=== PATIENT | female | born 1985 | race American Indian/Alaskan Native ===

== ENCOUNTER 2018-12-13 07:51 | Day surgery (SDC) | payer MEDICARE ==
[2018-12-13] MEDS ORDERED: NACL 0.9% 500 ML 500 ML IV SCH (09:00)
--- NOTE | 2018-12-13 09:04 | Short Stay Summary ---
Short Stay Documentation Date of service: 12/13/18 Narrative H&P: PVD with gangrene of the RLE s/p revasc by outside special effects person x 2 with dehissence of TMA who presented for me for evaluation and treatment of PVD after multiple failed attempts. 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 - History Principal diagnosis: PVD with gangrene Past Medical History: diabetes, dialysis, ESRD Past Surgical History: Other (multiple right lower extremity revasc by outside individuals, AVF creation) Social history: single - Allergies and Medications Current Medications: Allergies shellfish derived Adverse Reaction (Unverified 12/13/18 07:52) Itching Active Medications Sodium Chloride (Nacl 0.9% 500 Ml) 500 mls @ 50 mls/hr IV DIRECT CHARLA - Physical exam General appearance: no acute distress Lungs: Normal air movement Gastrointestinal: normal Extremities: abnormal (warm, but open dehissence of right TMA ; nonpalpable pedal pulses) - Brief post op/procedure progress note Date of procedure: 12/13/18 Pre-op diagnosis: PVD with gangrene Post-op diagnosis: same Procedure: Right common iliac artery angioplasty Right common femoral artery and superficial femoral artery atherectomy and angioplasty Anesthesia: local (w/ conscious sedation) Surgeon: ELENI REBOLLEDO Estimated blood loss: minimal Condition: stable - Hospital course Hospital course: Manual pressure. Can leave 4 hrs after hold. - Disposition Condition at discharge: Stable Disposition: DC-01 TO HOME OR SELFCARE - Discharge Diagnoses (1) Atherosclerotic peripheral vascular disease with gangrene Status: Acute Short Stay Discharge Plan Activity: advance as tolerated Weight Bearing Status: Weight Bear as Tolerated Diet: diabetic Wound: keep clean and dry, other (remove pressure dressing on 12/14/18 in AM ; do not lift more than 10 lbs for 2 weeks ; do not have heparin with dialysis for 3 dialysis sessions) Follow up with: LUPE MARTINEZ MD [Primary Care Provider] - 7 Days Prescriptions: Pentoxifylline [TRENtal] 400 mg PO DAILY #30 tablet
[2018-12-13 09:45] LABS: Basophils # (Auto) 0.1 K/mm3 (0.0-0.1); Basophils % (Auto) 1.1 % (0.0-1.8); Eosinophils # (Auto) 0.2 K/mm3 (0.0-0.4); Eosinophils % (Auto) 3.1 % (0.0-4.3); Hematocrit 45.5 % (30.3-42.9); Hemoglobin 14.4 gm/dl (10.1-14.3); Lymphocytes # (Auto) 1.4 K/mm3 (1.2-5.4); Lymphocytes % (Auto) 24.5 % (13.4-35.0); Mean Corpuscular HGB Conc 32 % (30-34); Mean Corpuscular Volume 91 fl (79-97); Monocytes # (Auto) 0.6 K/mm3 (0.0-0.8); Monocytes % (Auto) 10.5 % (0.0-7.3); Platelet Count 248 K/mm3 (140-440); Red Blood Count 4.97 M/mm3 (3.65-5.03); Red Cell Distribution Width 17.8 % (13.2-15.2)
[2018-12-13 09:55] LABS: INR 1.03 (0.87-1.13)
[2018-12-13 10:11] LABS: Calcium 8.7 mg/dL (8.4-10.2)
[2018-12-13] MEDS ORDERED: BENADRYL ONE (11:57)
[2018-12-13] MEDS ORDERED: XYLOCAINE 2% INFILTRATI ONE (11:57)
[2018-12-13] MEDS ORDERED: SOLU-Medrol ONE (11:57)
[2018-12-13] MEDS ORDERED: NACL 0.9% 500 ML 500 ML ONE (11:57)
[2018-12-13] MEDS ORDERED: HEPARIN/NS 5000 UNIT/500ML(CATH LAB) 1,000 ML IR ONE (11:57)
[2018-12-13] MEDS ORDERED: PEPCID IV ONE (12:04)
[2018-12-13] MEDS ORDERED: HumaLOG SUB-Q ONE ×2 (12:10→13:00)
--- NOTE | 2018-12-13 12:15 | Event Note ---
Date: 12/13/18 BG 428. Patient usually takes 14 of lovolog for BG this elevated. Novolog provided. Will recheck in 1 hr
[2018-12-13] MEDS ORDERED: ANCEF/STERILE WATER 2 GM/20 ML 2 GM/20 ML SYRINGE IV ONE (12:30)
[2018-12-13] MEDS: VERSED ONE ×4 (12:33→13:49)
[2018-12-13] MEDS: SUBLIMAZE ONE ×3 (12:33→13:24)
[2018-12-13] MEDS: HEPARIN 10,000 UNITS/10 ML ONE ×2 (12:44→13:21)
[2018-12-13] MEDS ORDERED: SUBLIMAZE ONE (13:06)
--- NOTE | 2018-12-13 14:45 | Operative Report ---
Operative Report Operative Report: EXAM: 1. Ultrasound-guided access of the left common femoral artery 2. Angiography of the left lower extremity (clinical change, worsening gangrene) 3. Selection of the abdominal aorta with angiography (clinical change, worsening gangrene) disease 4. Selection of the right common iliac artery, external iliac artery, common femoral artery, superficial femoral artery, and popliteal artery with angiography of the right lower extremity (clinical change, worsening gangrene) 5. Fluoroscopic guided placement of a 6 mm spider embolic protection device in the right popliteal artery. 6. Atherectomy of the right proximal to mid official femoral artery with a Hawkone LX device with angioplasty with a 6 mm x 150 mm iNPACT DCB 7. Atherectomy of the right mid and distal common femoral artery with a Hawkone LX device with angioplasty with a 6 mm x 80 mm iNPACT DCB 8. Angioplasty of the right distal common iliac artery with a 6 mm x 80 mm angioplasty balloon 9. Angioplasty of the right distal superficial femoral artery with a 6 mm x 80 mm angioplasty balloon 10. Closure of left common femoral artery with manual compression DATE: 12/13/18 POWER GENERATION TECHNICIAN: ELENI REBOLLEDO MD INDICATION: Peripheral vascular disease with gangrene of the right forefoot MEDICATIONS: Please see nursing report for full details. DEVICES: 6 mm x 80 mm iNPACT DCB 6 mm x 150 mm iNPACT DCB 6 mm x 80 mm angioplasty balloon 6 mm spider EPD Hawkone LX device CONTRAST: Please see mushroom laborer report for full details. PROCEDURE: The risks, benefits, and alternatives were discussed with the patient including discussions about drug coated balloon technology and the mortality signal; written informed consent was obtained. The patient's groins were prepped and draped in a sterile fashion. Ultrasound was used to evaluate the left common femoral artery which demonstrated anterior and posterior plaque within the left common femoral artery with more plaque within the proximal left superficial femoral artery. Due to the plaque, I decided against using a closure device. Under direct ultrasound guidance, the left common femoral artery was accessed with a 21-gauge micropuncture needle. 0.018 inch wire was passed into the aorta. Needle was exchanged for transitional dilator. Wire was exchanged for 0.035 inch wire. Transitional dilator was exchanged for a 5 [place] sheath. Digital subtraction angiography was performed demonstrating 60% narrowing of the proximal left superficial femoral artery with 20% narrowing of the left common femoral artery. Left external iliac artery was patent. Flushed catheterization advanced over the wire and used to select the abdominal aorta. Digital subtraction angiography was performed a maturing patency of the infrarenal abdominal aorta, left common iliac artery, and left external iliac artery except for an area of 20% narrowing in the left proximal external iliac artery and distal left common iliac artery. The right proximal and mid common femoral artery were patent. The right distal common femoral artery had a 30% narrowing associated with it. The right external iliac artery was patent. The right common iliac artery and external iliac artery were selected and digital subtraction angiography was performed. There was a focal 30% narrowing in the mid to distal portion of the right common femoral artery. The right profundofemoral artery was patent. The right proximal superficial femoral artery had 30-40% narrowing with a subsequent 75% narrowing within the proximal vessel. The right mid superficial femoral artery was patent. The right distal superficial femoral artery was patent, But there is a small nonflow limiting dissection. Right popliteal artery was patent but there is a small nonflow limiting dissection in the mid popliteal artery. The tibial peroneal trunk, anterior tibial artery, posterior tibial artery, and peroneal artery was patent to the ankle. Unfortunately, the pedal flow was diminutive with severe diffuse narrowing of the dorsalis pedis and plantar arteries. The patient was heparinized. Sheath was exchanged for a 6 [place] Erin destination, but when a Hawkone M was unavailable, it was switched for a 7 Fr Erin destination positioned in the right common femoral artery. Atherectomy with the Hawkone device was performed in the right superficial femoral artery which was then treated with a 6 mm x 150 mm drug coated balloon. Atherectomy with the Hawkone device was performed in the right mid to distal common femoral artery which was then treated with a 6 mm x 80 mm drug coated balloon. Digital subtraction angiography demonstrated no residual narrowing. Sheath was retracted and a 6 mm x 80 mm angioplasty balloon was used to perform angioplasty of the right distal common femoral artery. Digital subtraction angiography was then performed demonstrated no residual narrowing. Digital subtraction angiography was performed demonstrating patency of the right common iliac artery, external iliac artery, common femoral artery, mid and proximal superficial femoral artery, but the previously visualized dissection ap peared to be more prominent in the distal right superficial femoral artery. 6 mm x 80 mm angioplasty balloon was then used to realign the dissection. Digital subtraction angiography was then performed demonstrating no significant residual dissection. Digital subtraction angiography was repeated demonstrating patency of the popliteal artery except for the previously visualized nonflow limiting mid popliteal artery dissection. Embolic protection device was retrieved. Digital subtraction angiography was performed again demonstrating no embolization of the runoff. Sheath was then retracted to the left external iliac artery and all wires, catheters, and sheaths were removed. Pressure was held until hemostasis was achieved. Sterile dressing and pressure dressing applied. Patient tolerated the procedure well. No immediate postprocedural complication. FINDINGS: Please see procedure note above. IMPRESSION: 1. Successful angioplasty of the right common iliac artery. 2. Successful atherectomy and angioplasty of the right common femoral artery and superficial femoral artery.
[2018-12-13] MEDS ORDERED: ZOFRAN ONE ×2 (15:00→17:24)
[2018-12-13] MEDS ORDERED: ZOFRAN IV ONE (15:00)
[2018-12-13 18:01] VITALS: BP 90/56
== END 2018-12-13 18:30 | disposition home or self-care (01) ==
LOC: CATHLABREC 07:51
PROVIDERS: ATTEND Radiology Diagnostic Radiology
DX: I70.261 Atherosclerosis of native arteries of extremities with gangrene, right leg (principal); I12.0 Hypertensive chronic kidney disease with stage 5 chronic kidney disease or end stage renal disease; E11.22 Type 2 diabetes mellitus with diabetic chronic kidney disease; N18.6 End stage renal disease; E11.319 Type 2 diabetes mellitus with unspecified diabetic retinopathy without macular edema; Z91.013 Allergy to seafood; Z79.899 Other long term (current) drug therapy; Z79.4 Long term (current) use of insulin; Z87.891 Personal history of nicotine dependence; Z99.2 Dependence on renal dialysis; Z72.89 Other problems related to lifestyle; Z80.0 Family history of malignant neoplasm of digestive organs; Z80.3 Family history of malignant neoplasm of breast; Z82.49 Family history of ischemic heart disease and other diseases of the circulatory system
CPT/HCPCS: 36415; 37220; 37225; 75625; 75716; 76937; 80048; 82962; 85025; 85347; 85610; 85730; 96374; 99156; 99157; C1714; C1725; C1769; C1884; C1887; C2623; J0690; J1200; J1644; J2250; J2405; J2930; J3010; J7040; J1815; Q9967

== ENCOUNTER 2019-01-17 07:03 | Day surgery (SDC) | payer MEDICARE ==
[2019-01-17] MEDS ORDERED: BENADRYL IV ONE (09:01)
[2019-01-17] MEDS ORDERED: VERSED ONE (09:24)
[2019-01-17] MEDS ORDERED: XYLOCAINE 1%/ EPI 1:100,000 INFILTRATI ONE (09:25)
[2019-01-17] MEDS ORDERED: HEPARIN/NS 5000 UNIT/500ML(CATH LAB) 1,000 ML IR ONE (09:25)
[2019-01-17] MEDS ORDERED: NACL 0.9% 250ML 250 ML ONE (09:25)
[2019-01-17] MEDS ORDERED: HEPARIN 10,000 UNITS/10 ML ONE (09:26)
--- NOTE | 2019-01-17 09:43 | Short Stay Summary ---
Short Stay Documentation Date of service: 01/17/19 Narrative H&P: 33 year old female with ESRD and LUE AVF malfunction who presents for treatment. - History Principal diagnosis: AVF malfunction H&P: obtained from office - Allergies and Medications Current Medications: Allergies shellfish derived Allergy (Verified 12/13/18 17:19) Itching Home Medications Medication Instructions Recorded Confirmed Last Taken Type Calcium Acetate 667 mg PO TIDAC 12/13/18 01/17/19 01/16/19 History Clopidogrel Bisulfate [Clopidogrel] 75 mg PO DAILY 12/13/18 01/17/19 01/16/19 History Ferric Citrate (Nf) [Auryxia (Nf)] 210 mg PO TIDAC 12/13/18 01/17/19 01/16/19 History Gabapentin [Neurontin] 100 mg PO PRN PRN 12/13/18 01/17/19 01/15/19 History Insulin Aspart [NovoLOG Flexpen] 4 - 16 units SUB-Q TIDAC 12/13/18 01/17/19 01/16/19 History Insulin Detemir [Levemir Flextouch] 30 ml SUB-Q PRN 12/13/18 01/16/19 History 15 units SQ Pentoxifylline [TRENtal] 400 mg PO DAILY #30 tablet 12/13/18 01/17/19 01/16/19 Rx Aspirin [Adult Aspirin] 81 mg PO DAILY 01/17/19 01/17/19 01/16/19 History Active Medications Diphenhydramine HCl (Benadryl) 25 mg IV ONCE ONE Stop: 01/17/19 09:02 - Physical exam General appearance: no acute distress Lungs: Normal air movement Gastrointestinal: normal Extremities: normal temperature, normal color - Brief post op/procedure progress note Date of procedure: 01/17/19 Pre-op diagnosis: ESRD with AVF malfunction Post-op diagnosis: same Procedure: peripheral AVF angioplasty Anesthesia: local (w/ conscious sedation) Surgeon: ELENI REBOLLEDO Estimated blood loss: minimal Condition: stable - Hospital course Hospital course: Tolerated procedure well. No issues. - Disposition Condition at discharge: Stable Disposition: DC-01 TO HOME OR SELFCARE - Discharge Diagnoses (1) Malfunction of arteriovenous dialysis fistula Status: Acute Short Stay Discharge Plan Activity: advance as tolerated Weight Bearing Status: Weight Bear as Tolerated Diet: renal Wound: keep clean and dry Follow up with: LUPE MARTINEZ MD [Primary Care Provider] - 7 Days
--- NOTE | 2019-01-17 09:44 | Operative Report ---
Operative Report Operative Report: EXAM: Ultrasound guided access of the left arm cephalic vein Placement of a sheath towards the venous outflow Fistulogram Angioplasty of the peripheral cephalic vein with a 8 mm x 2 cm cutting angioplasty balloon Angioplasty of the mid cephalic vein with an 8 mm x 60 mm angioplasty balloon DATE: 01/17/19 CIRCUIT DESIGN ENGINEER: ELENI REBOLLEDO MD INDICATION: AVF with malfunction MEDICATIONS: Please see nursing report for full details. PROCEDURE: The risks, benefits, and alternatives of the procedure were discussed and written informed consent was obtained. The patient was transported in stable condition to the angiography suite. The patient's left arm AV fistula was assessed by ultrasound and was patent. The patient was prepped and draped in a sterile fashion. Under ultrasound guidance, the left arm AV fistula cephalic vein was accessed with a 21-gauge micropuncture needle. The area was anesthetized prior to access. 0.018 inch wire was advanced through the micropuncture needle into the fistula and then the needle was exchanged for a 5 Turkish transitional dilator. The inner dilator and wire were removed and a 0.035 inch wire was advanced through the venous outflow. The transitional dilator was exchanged for a 6 Turkish short sheath. Fistulogram was performed of the venous outflow and central veins. Digital subtraction angiography demonstrated a 99% focal lesion in the peripheral portion of the cephalic vein. There is a 50% narrowing of a mid cephalic vein. The distal cephalic vein, and central veins were patent. There is a 40% perianastomotic stenosis. Sheath was upsized to a 7 Turkish sheath and an 8 mm x 2 cm cutting balloon was used to perform cutting balloon angioplasty in the peripheral portion of the cephalic vein. 8 mm x 6 cm angioplasty balloon was adhesed perform angioplasty of the mid cephalic vein. Digital subtraction angiography demonstrated no residual narrowing. At this point, all wires, catheters, and sheaths were removed. The site was closed with a 3-0 Vicryl suture. Hemostasis was achieved with slight manual compression. The patient was transported from the angiography suite to the floor in stable condition. IMPRESSION: Successful fistulogram and venoplasty as descibed above.
[2019-01-17] MEDS: SUBLIMAZE ONE ×2 (09:56→10:10)
[2019-01-17 12:02] VITALS: BP 92/52
== END 2019-01-17 12:30 | disposition home or self-care (01) ==
LOC: CATHLABREC 07:03
PROVIDERS: ATTEND Radiology Diagnostic Radiology
DX: T82.590A Other mechanical complication of surgically created arteriovenous fistula, initial encounter (principal); I12.0 Hypertensive chronic kidney disease with stage 5 chronic kidney disease or end stage renal disease; N18.6 End stage renal disease; E11.22 Type 2 diabetes mellitus with diabetic chronic kidney disease; E11.319 Type 2 diabetes mellitus with unspecified diabetic retinopathy without macular edema; Z72.89 Other problems related to lifestyle; Z98.890 Other specified postprocedural states; Z83.3 Family history of diabetes mellitus; Z80.3 Family history of malignant neoplasm of breast; Z80.0 Family history of malignant neoplasm of digestive organs; Z91.013 Allergy to seafood; Z79.82 Long term (current) use of aspirin; Z79.4 Long term (current) use of insulin; Z87.891 Personal history of nicotine dependence; Z82.49 Family history of ischemic heart disease and other diseases of the circulatory system; Y83.8 Other surgical procedures as the cause of abnormal reaction of the patient, or of later complication, without mention of misadventure at the time of the procedure; Y92.89 Other specified places as the place of occurrence of the external cause
CPT/HCPCS: 36415; 36902; 76937; 82947; 84132; 96374; 99156; 99157; C1725; C1769; C1894; J1200; J1644; J2250; J3010; J7050; Q9967

== ENCOUNTER 2019-02-28 06:34 | Day surgery (SDC) | payer MEDICARE ==
[2019-02-28] MEDS ORDERED: XYLOCAINE 2% INFILTRATI ONE (08:24)
[2019-02-28] MEDS ORDERED: HEPARIN/NS 5000 UNIT/500ML(CATH LAB) 1,000 ML IR ONE (08:24)
[2019-02-28] MEDS ORDERED: ANCEF/STERILE WATER 2 GM/20 ML 2 GM/20 ML SYRINGE IV ONE (08:24)
[2019-02-28] MEDS ORDERED: NACL 0.9% 500 ML 500 ML ONE (08:25)
[2019-02-28] MEDS ORDERED: HEPARIN 10,000 UNITS/10 ML ONE (09:01)
--- NOTE | 2019-02-28 09:27 | Short Stay Summary ---
Short Stay Documentation Date of service: 02/28/19 Narrative H&P: 33 year old female with ESRD and LUE AVF malfunction who presents for intervention. - History Principal diagnosis: AVF malfunction H&P: obtained from office - Allergies and Medications Current Medications: Allergies shellfish derived Allergy (Verified 12/13/18 17:19) Itching Home Medications Medication Instructions Recorded Confirmed Last Taken Type Calcium Acetate 667 mg PO TIDAC 12/13/18 02/28/19 02/27/19 History Clopidogrel Bisulfate [Clopidogrel] 75 mg PO DAILY 12/13/18 02/28/19 02/27/19 History Ferric Citrate (Nf) [Auryxia] 210 mg PO TIDAC 12/13/18 02/28/19 02/27/19 History Gabapentin [Neurontin] 100 mg PO PRN PRN 12/13/18 02/28/19 02/27/19 History Insulin Aspart [NovoLOG Flexpen] 4 - 16 units SUB-Q TIDAC 12/13/18 02/28/19 02/27/19 History Insulin Detemir [Levemir Flextouch] 30 ml SUB-Q DAILY PRN 12/13/18 02/28/19 02/27/19 History Pentoxifylline [TRENtal] 400 mg PO DAILY #30 tablet 12/13/18 02/28/19 02/27/19 Rx Aspirin [Adult Aspirin] 81 mg PO DAILY 01/17/19 02/28/19 02/27/19 History - Physical exam General appearance: no acute distress Lungs: Normal air movement Gastrointestinal: normal Extremities: normal temperature, normal color, abnormal (AVF with weak thrill) - Brief post op/procedure progress note Date of procedure: 02/28/19 Pre-op diagnosis: ESRD with AVF malfunction Post-op diagnosis: same Procedure: peripheral dialysis access angioplasty Anesthesia: local Findings: Strong thrill after procedure Surgeon: ELENI REBOLLEDO Estimated blood loss: minimal Condition: stable - Hospital course Hospital course: Ready for discharge - Disposition Condition at discharge: Stable Disposition: DC-01 TO HOME OR SELFCARE - Discharge Diagnoses (1) Atherosclerotic peripheral vascular disease with gangrene Status: Acute (2) Malfunction of arteriovenous dialysis fistula Status: Acute (3) Blindness Status: Acute (4) Diabetic neuropathy Status: Acute (5) End stage renal disease on dialysis Status: Acute Short Stay Discharge Plan Activity: advance as tolerated Weight Bearing Status: Weight Bear as Tolerated Diet: renal Wound: keep clean and dry Follow up with: LUPE MARTINEZ MD [Primary Care Provider] - 7 Days Forms: AVG Arteriogram D/CInstruction
--- NOTE | 2019-02-28 09:28 | Operative Report ---
Operative Report Operative Report: EXAM: Ultrasound guided access of the left arm AV cephalic fistula towards the anastomosis Placement of a sheath towards the anastomosis Selection of the brachial artery in a retrograde fashion with angiography and fistulogram Angioplasty of the peripheral dialysis access with a 6 mm x 20 mm cutting angioplasty balloon Angioplasty of the peripheral dialysis access with 8 mm x 60 mm angioplasty balloon DATE: 02/28/19 HOSTEL MANAGER: ELENI REBOLLEDO MD INDICATION: AV fistula malfunction requiring repeat intervention. MEDICATIONS: Please see nursing report for full details. DEVICES: 6 mm cutting angioplasty balloon 8 mm angioplasty balloon PROCEDURE: The risks, benefits, and alternatives of the procedure were discussed and written informed consent was obtained. The patient was transported in stable condition to the angiography suite. The patient's left arm AV fistula was assessed by ultrasound and was patent. The patient was prepped and draped in a sterile fashion. Under ultrasound guidance, the left arm AV fistula cephalic vein was accessed with a 21-gauge micropuncture needle. The area was anesthetized prior to access. 0.018 inch wire was advanced through the micropuncture needle into the fistula and then the needle was exchanged for a 5 [place] African transitional dilator. The inner dilator and wire were removed and a 0.035 inch glide wire was advanced through the anastomosis and into the brachial artery. The transitional dilator was exchanged for a 7 [place] African short sheath. Catheter was advanced over the wire and used to selective brachial artery in a retrograde fashion. Digital subtraction angiography was performed. Fistulogram was performed of the venous outflow and central veins. Subtraction angiography demonstrated a severe 50-60% perianastomotic narrowing and a 20% residual narrowing in the peripheral portion of the AV fistula. The midportion of the cephalic vein and the cephalic arch were patent. The central veins were patent. Some collateral veins were visualized but these were beyond the segments used for dialysis. The brachial artery was patent proximal and dis echo to the anastomosis with the proximal portion of the ulnar, radial, and interosseous artery visualized without issue. The brachial artery was patent. 6 mm x 20 mm cutting angioplasty balloon was used to perform angioplasty of the perianastamotic portion of the cephalic vein fistula. 8 mm x 60 mm angioplasty balloon was used to perform angioplasty of the peripheral portion of the cephalic vein fistula. Digital subtraction angiography was performed demonstrating less than 10% residual narrowing. The wire was removed and the site was closed with a 3-0 Vicryl suture. The sheath was then removed. Hemostasis was achieved with slight manual compression. The patient was transported from the angiography suite to the floor in stable condition. IMPRESSION: Successful peripheral dialysis access angioplasty with selection of the brachial artery, fistulogram, and angiogram.
[2019-02-28 11:07] VITALS: BP 113/70
--- NOTE | 2019-02-28 11:52 | XRay Report ---
ROUTINE CHEST, TWO VIEWS: HISTORY: History of opacity. The trachea, heart, mediastinal contour, lung ang and bony thorax are unremarkable. IMPRESSION: Unremarkable chest x-ray.
== END 2019-02-28 12:00 | disposition home or self-care (01) ==
LOC: CATHLABREC 06:34
PROVIDERS: ATTEND Radiology Diagnostic Radiology
DX: T82.898A Other specified complication of vascular prosthetic devices, implants and grafts, initial encounter (principal); I12.0 Hypertensive chronic kidney disease with stage 5 chronic kidney disease or end stage renal disease; N18.6 End stage renal disease; E11.40 Type 2 diabetes mellitus with diabetic neuropathy, unspecified; E11.22 Type 2 diabetes mellitus with diabetic chronic kidney disease; E11.51 Type 2 diabetes mellitus with diabetic peripheral angiopathy without gangrene; E11.319 Type 2 diabetes mellitus with unspecified diabetic retinopathy without macular edema; Z72.89 Other problems related to lifestyle; Z87.891 Personal history of nicotine dependence; Z79.82 Long term (current) use of aspirin; Z91.013 Allergy to seafood; Z79.899 Other long term (current) drug therapy; Z79.4 Long term (current) use of insulin; Z98.890 Other specified postprocedural states; Z83.3 Family history of diabetes mellitus; Z80.3 Family history of malignant neoplasm of breast; Z80.0 Family history of malignant neoplasm of digestive organs; Z82.49 Family history of ischemic heart disease and other diseases of the circulatory system; Y83.8 Other surgical procedures as the cause of abnormal reaction of the patient, or of later complication, without mention of misadventure at the time of the procedure; Y92.89 Other specified places as the place of occurrence of the external cause
CPT/HCPCS: 36415; 36902; 71046; 84132; C1725; C1769; C1894; J0690; J1644; J7040; Q9967

== ENCOUNTER 2019-05-31 08:16 | Day surgery (SDC) | payer MEDICARE ==
[~2019-05-31 08:16] MED LIST: SODIUM CHLORIDE 0.9% 1000 ML 1,000 ML IV SCH; ceFAZolin/Water 2 GM/20 ML 2 GM/20 ML SYRINGE IV NR
[2019-05-31] MEDS ORDERED: INSULIN REGULAR, HUMAN 100 UNITS/1 ML IV SCH (10:43)
[2019-05-31] MEDS ORDERED: INSULIN REGULAR, HUMAN 100 UNITS/1 ML ONE (10:49)
[2019-05-31] MEDS ORDERED: GELATIN SPONGE SIZE 100 TP ONE (10:49)
[2019-05-31] MEDS ORDERED: HEPARIN 10,000 UNITS/10 ML VIAL ONE (10:49)
[2019-05-31] MEDS ORDERED: THROMBIN (RECOMBINANT) 5,000 UNIT VIAL TP ONE (10:49)
[2019-05-31] MEDS ORDERED: SODIUM CHLORIDE 0.9% 250ML 250 ML ONE (10:49)
[2019-05-31] MEDS ORDERED: INSULIN REGULAR, HUMAN 100 UNITS/1 ML IV NR (11:00)
[2019-05-31] MEDS ORDERED: LIDOCAINE MPF (2%) 20 MG/1 ML VIAL 5 ML ONE (11:05)
[2019-05-31] MEDS ORDERED: MIDAZOLAM 2 MG/2 ML INJ ONE (11:05)
[2019-05-31] MEDS ORDERED: fentaNYL 100 MCG/2 ML INJ ONE (11:05)
[2019-05-31] MEDS ORDERED: PROPOFOL 200 MG/20 ML VIAL IV ONE (11:06)
[2019-05-31] MEDS ORDERED: PROTAMINE SULFATE 50 MG/5 ML INJ ONE (11:10)
[2019-05-31 11:20] LABS: Calcium 8.7 mg/dL (8.4-10.2)
--- NOTE | 2019-05-31 11:46 | Anesthesia Consultation ---
Anesthesia Consult and Med Hx Date of service: 05/31/19 - Airway Anesthetic Teeth Evaluation: Poor ROM Head & Neck: Adequate Mental/Hyoid Distance: Inadequate Mallampati Class: Class III Intubation Access Assessment: Possibly Difficult - Pulmonary Exam CTA: Yes - Cardiac Exam Cardiac Exam: RRR - Pre-Operative Health Status ASA Pre-Surgery Classification: ASA3 Proposed Anesthetic Plan: General - Pulmonary Hx Smoking: Yes (quit 2012) Hx Respiratory Symptoms: No - Cardiovascular System Hx Hypertension: Yes Hx Heart Attack/AMI: No Hx Peripheral Vascular Disease: Yes - Central Nervous System CVA: No - Endocrine Hx End Stage Renal Disease: Yes (last HD 05/29/19) Hx Liver Disease: No Hx Insulin Dependent Diabetes: Yes Hx Thyroid Disease: No - Hematic Hx Anemia: Yes - Other Systems Hx Cancer: No Hx Obesity: Yes (BMI 35) - Additional Comments Anesthesia Medical History Comments: POCT potassium 5.5 and recheck on BMP sent to lab 6.1. Discussed with surgeon. Patient has working HD access currently. Patient will go to scheduled outpatient HD today and surgery will be rescheduled for a later date. Patient verbalized understanding.
[2019-05-31 12:30] VITALS: BP 109/71
== END 2019-05-31 08:17 | disposition home or self-care (01) ==
LOC: OR 08:16
PROVIDERS: ATTEND Surgery Vascular Surgery
DX: T82.590A Other mechanical complication of surgically created arteriovenous fistula, initial encounter (principal); I12.0 Hypertensive chronic kidney disease with stage 5 chronic kidney disease or end stage renal disease; E11.22 Type 2 diabetes mellitus with diabetic chronic kidney disease; N18.6 End stage renal disease; E11.39 Type 2 diabetes mellitus with other diabetic ophthalmic complication; E11.40 Type 2 diabetes mellitus with diabetic neuropathy, unspecified; E11.51 Type 2 diabetes mellitus with diabetic peripheral angiopathy without gangrene; Z53.8 Procedure and treatment not carried out for other reasons; Z79.899 Other long term (current) drug therapy; Z99.2 Dependence on renal dialysis; Z91.013 Allergy to seafood; Z79.4 Long term (current) use of insulin; Z98.2 Presence of cerebrospinal fluid drainage device; Z98.890 Other specified postprocedural states; Z87.891 Personal history of nicotine dependence; Z72.89 Other problems related to lifestyle; Z80.3 Family history of malignant neoplasm of breast; Z80.0 Family history of malignant neoplasm of digestive organs; Z83.3 Family history of diabetes mellitus; Z82.49 Family history of ischemic heart disease and other diseases of the circulatory system; Z86.2 Personal history of diseases of the blood and blood-forming organs and certain disorders involving the immune mechanism
CPT/HCPCS: 36415; 80048; 82803; 82962; 84703; A4649; J0690; J1644; J1815; J2250; J2704; J2720; J3010; J7030; J7050

== ENCOUNTER 2021-11-16 07:01 | Day surgery (SDC) | payer MEDICARE ==
[2021-11-16] MEDS ORDERED: SODIUM CHLORIDE 0.9% 500 ML 500 ML IV SCH (08:00)
[2021-11-16] MEDS ORDERED: FAMOTIDINE 20 MG/2 ML INJ IV ONE (08:03)
[2021-11-16] MEDS ORDERED: methylPREDNISolone Sod Succinate 125 MG/2 ML INJ IV ONE (08:04)
[2021-11-16 08:09] LABS: Hematocrit 48.3 % (30.3-42.9); Hemoglobin 15.7 gm/dl (10.1-14.3); Mean Corpuscular HGB Conc 33 % (30-34); Mean Corpuscular Volume 88 fl (79-97); Platelet Count 222 K/mm3 (140-440); Red Blood Count 5.46 M/mm3 (3.65-5.03)
[2021-11-16 08:16] LABS: INR 0.88 (0.87-1.13)
[2021-11-16 08:17] LABS: Partial Thromboplastin Time 33.3 Sec. (24.2-36.6)
[2021-11-16] MEDS ORDERED: diphenhydrAMINE 50 MG/ML VIAL IV NR (08:30)
[2021-11-16] MEDS ORDERED: ceFAZolin/Water 2 GM/20 ML 2 GM/20 ML SYRINGE IV ONE (08:39)
[2021-11-16] MEDS ORDERED: HEPARIN 10,000 UNITS/10 ML VIAL ONE (08:39)
[2021-11-16] MEDS ORDERED: HEPARIN/NS 5000 UNIT/500ML 500 ML IR ONE ×2 (08:39→10:22)
[2021-11-16 08:40] LABS: Calcium 9.6 mg/dL (8.4-10.2)
[2021-11-16] MEDS ORDERED: NITROGLYCERIN SYRINGE 6 ML ONE (08:41)
[2021-11-16 08:46] LABS: Total Cells Counted 100
[2021-11-16 08:47] LABS: Anisocytosis 1+; Platelet Estimate Consistent w Auto
[2021-11-16] MEDS ORDERED: fentaNYL 100 MCG/2 ML INJ ONE ×2 (09:29→11:27)
[2021-11-16] MEDS ORDERED: MIDAZOLAM 2 MG/2 ML INJ ONE ×2 (09:29→11:27)
[2021-11-16] MEDS ORDERED: fentaNYL 100 MCG/2 ML INJ IV ONE ×3 (09:45→11:27)
[2021-11-16] MEDS ORDERED: MIDAZOLAM 2 MG/2 ML INJ IV ONE ×3 (09:45→11:27)
[2021-11-16] MEDS ORDERED: ceFAZolin/STERILE WATER 2 GM/20 ML SYRINGE IV ONE (09:46)
[2021-11-16] MEDS ORDERED: LIDOCAINE 2%/EPINEPHRINE 1:100,000 VIAL (20 ML) INFILTRATI ONE (09:50)
[2021-11-16] MEDS ORDERED: HEPARIN 10,000 UNITS/10 ML VIAL IV ONE ×2 (10:07→10:44)
[2021-11-16] MEDS ORDERED: CLOPIDOGREL 300 MG TAB PO ONE (11:48)
[2021-11-16] MEDS ORDERED: ALUM-MAG HYDROXIDE-SIMETHICONE 200-200-20MG/5ML ORAL LIQD 30 ML PO ONE (11:49)
[2021-11-16] MEDS ORDERED: ALUM-MAG HYDROXIDE-SIMETHICONE 200-200-20MG/5ML ORAL LIQD 30 ML ONE (11:51)
[2021-11-16] MEDS ORDERED: CLOPIDOGREL 300 MG TAB ONE (11:51)
--- NOTE | 2021-11-16 12:38 | Short Stay Summary ---
Short Stay Documentation Date of service: 11/16/21 Narrative H&P: 36-year-old female with left lower extremity critical limb ischemia with nonhealing plantar wound with end-stage renal disease on hemodialysis - History Principal diagnosis: Atherosclerotic disease of the left lower extremity with nonhealing ulcerat H&P: obtained from office Past Medical History: diabetes, dialysis, PVD Past Surgical History: Other (Multiple endovascular revascularizations,) Social history: no significant social history - Allergies and Medications Current Medications: Allergies shellfish derived Allergy (Verified 06/03/19 11:53) Itching Home Medications Medication Instructions Recorded Confirmed Last Taken Type Calcium Acetate 667 mg PO TIDAC 12/13/18 06/03/19 05/30/19 15:00 History Clopidogrel Bisulfate [Clopidogrel] 75 mg PO DAILY 12/13/18 06/03/19 05/30/19 15:00 History Ferric Citrate (Nf) [Auryxia] 210 mg PO TIDAC 12/13/18 06/03/19 05/30/19 15:00 History Gabapentin 100 mg PO PRN PRN 12/13/18 06/03/19 05/30/19 15:00 History Insulin Aspart (Nf) [NovoLOG 4 - 16 units SUB-Q TIDAC 12/13/18 06/03/19 05/30/19 15:00 History Flexpen] Insulin Detemir (Nf) [Levemir 30 ml SUB-Q HS PRN 12/13/18 06/03/19 05/30/19 15:00 History Flextouch] Pentoxifylline [TRENtal] 400 mg PO DAILY #30 tablet 12/13/18 06/03/19 05/30/19 15:00 Rx Aspirin [Adult Aspirin] 81 mg PO DAILY 01/17/19 06/03/19 05/30/19 15:00 History Active Medications Sodium Chloride (Nacl 0.9% 500 Ml) 500 mls @ 50 mls/hr IV DIRECT CHARLA - Physical exam General appearance: no acute distress Lungs: Normal air movement Heart: Regular rate Gastrointestinal: normal Extremities: abnormal (Ulcers of the bilateral lower extremities) - Brief post op/procedure progress note Date of procedure: 11/16/21 Pre-op diagnosis: Atherosclerotic disease with ulceration of the left lower extremity Post-op diagnosis: same Procedure: 1. Ultrasound-guided access of the right common femoral artery. 2. Angiography of the right lower extremity. 3. Selection of the abdominal aorta with aortography. 4. Selection of the left external iliac artery, superficial femoral artery, and popliteal artery with angiography. 5. Selection of the left tibioperoneal trunk with angiography 6. Fluoroscopic guided placement of a 6 mm spider embolic protection device in the left tibioperoneal trunk. 7. Thrombectomy of the left popliteal artery with a CAT Rx device 8. Angioplasty of the left tibioperoneal trunk, popliteal artery and distal to mid superficial femoral artery with a 4 mm x 100 mm angiosculpt, and 4 mm x 60 mm angioplasty balloon 9. Angioplasty of left tibioperoneal trunk, popliteal artery and distal to mid superficial femoral artery with a 5 mm x 100 mm angiosculpt, 5 mm x 150 mm [place], and 5 mm x 200 mm [place] 10. Stenting of the left tibioperoneal trunk and popliteal artery with a 6 mm x 120 mm Katharine self-expanding stent 11. Post dilatation of the left tibioperoneal trunk and popliteal artery stent with a 5 mm x 80 mm and 5 mm x 40 mm angioplasty balloon 12. Closure of the right common femoral artery arteriotomy with a 6 [place]vian Pro style Anesthesia: local (With conscious sedation) Surgeon: ELENI REBOLLEDO Estimated blood loss: minimal Condition: stable - Hospital course Hospital course: The patient tolerated the procedure well. No immediate postprocedural complications. Loaded with Plavix. - Disposition Condition at discharge: Stable Disposition: 01 HOME / SELF CARE / HOMELESS - Discharge Diagnoses (1) Atherosclerosis of left lower extremity with ulceration of midfoot Status: Acute (2) End stage renal disease on dialysis Status: Acute Short Stay Discharge Plan Activity: advance as tolerated Weight Bearing Status: Weight Bear as Tolerated Diet: diabetic Wound: keep clean and dry Special Instructions: other (Remove pressure dressing tomorrow morning, start Eliquis 2.5 mg twice a day tomorrow morning, continue Plavix, continue cilostazol) Follow up with: ANNEL GREENE DO [Primary Care Provider] - 7 Days
--- NOTE | 2021-11-16 12:42 | Operative Report ---
Operative Report Operative Report: EXAM: 1. Ultrasound-guided access of the right common femoral artery. 2. Angiography of the right lower extremity. 3. Selection of the abdominal aorta with aortography. 4. Selection of the left external iliac artery, superficial femoral artery, and popliteal artery with angiography. 5. Selection of the left tibioperoneal trunk with angiography 6. Fluoroscopic guided placement of a 6 mm spider embolic protection device in the left tibioperoneal trunk. 7. Thrombectomy of the left popliteal artery with a CAT Rx device 8. Angioplasty of the left tibioperoneal trunk, popliteal artery and distal to mid superficial femoral artery with a 4 mm x 100 mm angiosculpt, and 4 mm x 60 mm angioplasty balloon 9. Angioplasty of left tibioperoneal trunk, popliteal artery and distal to mid superficial femoral artery with a 5 mm x 100 mm angiosculpt, 5 mm x 150 mm Norwood, and 5 mm x 200 mm Norwood 10. Stenting of the left tibioperoneal trunk and popliteal artery with a 6 mm x 120 mm Katharine self-expanding stent 11. Post dilatation of the left tibioperoneal trunk and popliteal artery stent with a 5 mm x 80 mm and 5 mm x 40 mm angioplasty balloon 12. Closure of the right common femoral artery arteriotomy with a 6 Polish Pro style DATE: 11/16/2021 WHIRLEY OPERATOR: ELENI REBOLLEDO MD INDICATION: Critical limb ischemia with thrombosed left popliteal artery with severe arterial disease and nonhealing wound of the left plantar aspect of the midfoot. MEDICATIONS: Please see nursing report for full details. DEVICES: 6 mm parabolic protection device CAT Rx thrombectomy device 4 mm x 100 mm angioscope 5 mm x 100 mm angioscope 4 mm x 60 mm angioplasty balloon 5 mm x 80 mm angioplasty balloon 5 mm x 40 mm angioplasty balloon 5 mm x 150 mm Norwood balloon 5 mm x 200 mm Norwood balloon 6 mm x 120 mm Katharine self-expanding stent CONTRAST: Please see catheter report for full detail PROCEDURE: The risks, benefits, and alternatives were discussed with the patient; written informed consent was obtained. The groins were prepped and draped in a sterile fashion. The left leg was prepped and draped in a sterile fashion. Ultrasound was used to identify the right common femoral artery. Under direct ultrasound guidance, the right common femoral artery was accessed with a 21- gauge micropuncture needle. 0.018 inch wire was passed into the aorta. Needle was exchanged for transitional dilator. Wire was exchanged for a 0.035 inch wire. Transitional dilator was exchanged for 5 Polish sheath. Digital subtraction angiography was performed demonstrating an appropriate puncture, in the upper portion of the common femoral artery. The right external iliac artery was patent. The right mid common femoral artery had a 50% stenosis. The right lower common femoral artery was patent. The right profunda femoral artery was patent. The right proximal superficial femoral artery was patent. The abdominal aorta was selected and digital subtraction angiography was performed demonstrating bilateral 20 to 30% stenotic lesions in the common femoral arteries. Bilateral patent external iliac arteries. Bilateral patent internal iliac arteries. The left external iliac artery was selected, the left superficial femoral artery was selected, and the left above-knee popliteal artery was selected and digital subtraction angiography was performed. Digital subtraction angiography demonstrated patency of the left external iliac artery, 20-30 % stenosis of the lower left common femoral artery. The left pr ofunda femoral artery was patent. The left proximal superficial femoral artery was patent. The left mid superficial femoral artery was patent. The left distal superficial femoral artery had a 30 to 40% stenosis. The left [id number] popliteal artery had a 50% stenosis. The popliteal artery became occluded at the mid popliteal artery with occlusion of the below-knee popliteal artery with reconstitution at the level of the anterior tibial artery takeoff. The anterior tibial artery was atretic occludes in the distal calf. There is reconstitution as the dorsalis pedis artery through the peroneal artery. The tibioperoneal trunk had a proximal 50% stenosis. The rest of the tibial peroneal trunk was patent. The peroneal artery and posterior tibial artery are patent to the level of the ankle. The common plantar artery has a 50% stenosis but the medial and lateral plantar arteries are patent. After reviewing the diagnostic angiogram and understanding the patient symptoms of tissue loss, the patient required revascularization. The patient was heparinized and the sheath was exchanged for a 6 Polish 65 cm Jber destination positioned in the left mid superficial femoral artery. Wire and catheter used to cross the popliteal artery occlusion and the tibioperoneal trunk was selected. Digital subtraction angiography demonstrated some thrombus in the below the knee popliteal artery. 6 mm spider embolic protection device was then deployed in the distal tibioperoneal trunk. CAT Rx thrombectomy device was then passed through the popliteal artery occlusion multiple times and thrombectomy was performed. Digital subtraction angiography was performed demonstrating thrombectomy of much of the lumen. Afterwards, 4 mm x 100 mm angiosculpt was used to perform angioplasty of the proximal tibioperoneal trunk, popliteal artery, and distal to mid superficial femoral artery. Due to the leading edge of the balloon, a 4 mm x 60 mm angioplasty balloon had to be used to perform angioplasty of the entire stenotic portion of the tibioperoneal trunk. 5 mm x 100 mm angiosculpt was then used to perform angioplasty of the proximal tibioperoneal trunk, popliteal artery, and distal to mid superficial femoral artery. This was then followed with a 5 mm x 150 mm Norwood which was used to perform angioplasty of the left tibioperoneal trunk, and popliteal artery. And then a 5 mm x 200 mm Norwood which was used to treat the [id number] popliteal artery, distal superficial femoral artery to mid superficial femoral artery. Digital subtraction angiography was performed intermittently throughout the procedure. Digital subtraction angiography was performed demonstrating less than 10% residual narrowing of the left distal superficial femoral artery and [id number] popliteal artery. Unfortunately, the mid popliteal artery was still severely narrowed and dissected despite use of angiosculpt balloons and there is a flap of thrombus in the proximal tibioperoneal trunk. 6 mm x 120 mm self-expanding Katharine stent was then deployed with stenting of the proximal tibioperoneal trunk and below the knee and mid popliteal artery. This was then postdilated with a 5 mm x 80 and 5 mm x 40 mm angioplasty balloon digital subtraction angiography was then performed demonstrating less than 20% residual narrowing of the popliteal artery with excellent flow through the two-vessel runoff. The embolic protection device was then retrieved and digital subtraction angiography was performed demonstrating no embolization or change in runoff. At this point all wires, catheters, and sheaths were retracted to the right external iliac artery and the site was closed with a 6 Polish Pro style achieving immediate hemostasis. Pressure dressing and sterile dressing applied. Patient tolerated the procedure well. No immediate postprocedural complications. FINDINGS: Please see procedure note above. IMPRESSION: 1. Successful thrombectomy of the left popliteal artery. 2. Successful angioplasty and stenting of the left popliteal artery. Successful angioplasty of the left superficial femoral artery. 3. Successful angioplasty and stenting of the left proximal tibioperoneal t runk. 4. Successful ultrasound-guided access of the right common femoral artery with Pro style assisted closure.
[2021-11-16 14:33] VITALS: BP 142/88
== END 2021-11-16 16:15 | disposition home or self-care (01) ==
LOC: CATHLABREC 07:01
PROVIDERS: ATTEND Radiology Diagnostic Radiology
DX: I70.222 Atherosclerosis of native arteries of extremities with rest pain, left leg (principal); I70.244 Atherosclerosis of native arteries of left leg with ulceration of heel and midfoot; E11.51 Type 2 diabetes mellitus with diabetic peripheral angiopathy without gangrene; E11.40 Type 2 diabetes mellitus with diabetic neuropathy, unspecified; E11.22 Type 2 diabetes mellitus with diabetic chronic kidney disease; N18.6 End stage renal disease; D64.9 Anemia, unspecified; Z98.890 Other specified postprocedural states; Z72.89 Other problems related to lifestyle; Z83.3 Family history of diabetes mellitus; Z80.3 Family history of malignant neoplasm of breast; Z80.0 Family history of malignant neoplasm of digestive organs; Z82.49 Family history of ischemic heart disease and other diseases of the circulatory system
CPT/HCPCS: 36415; 37184; 37226; 75625; 75716; 76937; 80048; 85007; 85025; 85610; 85730; 99156; 99157; C1725; C1760; C1769; C1874; C1884; C1887; C2623; J0690; J1200; J1644; J1815; J2250; J2930; J3010; J3490; J7040; 96374; 96375; Q9967

== ENCOUNTER 2021-12-14 10:45 | Inpatient (IN) | payer MEDICARE ==
--- NOTE | 2021-12-14 11:49 | Emergency Department Report ---
HPI - General Chief Complaint: Extremity Problem,Nontraumatic Time Seen by Provider: 12/14/21 11:30 - HPI HPI: The patient was sent from her vascular surgeon's office, Dr. Cisneros after she had an ultrasound that likely showed blockage of her arteries to the left lower extremity. The patient has had bilateral partial foot amputations and has a history of peripheral vascular disease. Her left lower extremity has been hurting for the last several days and it peaked yesterday while she was undergoing hemodialysis. She says that her left lower extremity has been feeling cold especially over the leg since yesterday. She denies nausea vomiting fever chills shortness of breath chest pain or any other associated symptoms. Hanging her leg over the bed down makes her pain better and lifting her leg makes the pain worse. ED Past Medical Hx - Past Medical History Previous Medical History?: Yes Hx Diabetes: Yes Hx Renal Disease: Yes Additional medical history: Peripheral vascular disease end-stage renal disease - Surgical History Past Surgical History?: No Additional Surgical History: Bilateral partial foot amputations; she has had vascular surgery interventions in her lower extremities - Family History Family history: no significant - Social History Smoking Status: Former Smoker Substance Use Type: None - Medications Home Medications: Home Medications Medication Instructions Recorded Confirmed Last Taken Type Calcium Acetate 667 mg PO TIDAC 12/13/18 06/03/19 05/30/19 15:00 History Clopidogrel Bisulfate [Clopidogrel] 75 mg PO DAILY 12/13/18 06/03/19 05/30/19 15:00 History Ferric Citrate (Nf) [Auryxia] 210 mg PO TIDAC 12/13/18 06/03/19 05/30/19 15:00 History Gabapentin 100 mg PO PRN PRN 12/13/18 06/03/19 05/30/19 15:00 History Insulin Aspart (Nf) [NovoLOG 4 - 16 units SUB-Q TIDAC 12/13/18 06/03/19 05/30/19 15:00 History Flexpen] Insulin Detemir (Nf) [Levemir 30 ml SUB-Q HS PRN 12/13/18 06/03/19 05/30/19 15:00 History Flextouch] Pentoxifylline [TRENtal] 400 mg PO DAILY #30 tablet 12/13/18 06/03/19 05/30/19 15:00 Rx Aspirin [Adult Aspirin] 81 mg PO DAILY 01/17/19 06/03/19 05/30/19 15:00 History ED Review of Systems ROS: Stated complaint: LT LEG HURT TURNED COLD Other details as noted in HPI Comment: All other systems reviewed and negative Physical Exam - Physical Exam Vital Signs: Vital Signs 12/14/21 11:00 Temperature 98.3 F Pulse Rate 98 H Respiratory 17 Rate Blood Pressure 106/66 [Right] O2 Sat by Pulse 98 Oximetry Physical Exam: Physical Exam: Constitutional: AAOX3. No acute distress. No diaphoresis. HENT: Normocephalic. Pupils equal and reactive. No throat edema or erythema. Neck: No neck rigidity or tenderness. Cardiovascular: Heart sounds: No murmur. Normal rate and regular rhythm. Pulses: Intact distal pulses. Lungs: No wheezing or rales. Chest wall: No tenderness. Abdominal: No distension. No mass/pulsatile mass. No abdominal tenderness, guarding nor rebound. Musculoskeletal: Normal range of motion. No edema, No calf TTP. Bilateral partial foot amputations. The patient's left leg seems cold. I could not feel a left popliteal pulse. I could not feel the left femoral artery pulse. Skin: Warm and dry. Neurological: Alert and oriented to person, place, and time. Psychiatric: Mood and affect normal. Normal cognition and memory. Normal judgement. ED Course Vital Signs 12/14/21 11:00 Temperature 98.3 F Pulse Rate 98 H Respiratory 17 Rate Blood Pressure 106/66 [Right] O2 Sat by Pulse 98 Oximetry - Reevaluation(s) Reevaluation #1: 12/14/21 12:32 EKG done at 1154 shows a rate of 97, normal. The rhythm is sinus rhythm, normal. There is a left anterior fascicular block. There is minimal ST segment elevation in leads V1 and V2 and V3 not meeting criteria for STEMI. Reevaluation #2: 12/14/21 12:[address] Cisneros who requested us to put the patient on a heparin drip witho ut a bolus. Her laboratories are coming in normal so far but I anticipate an elevated creatinine. I spoke to Dr. Bowers who will be admitting the patient. Critical CARE time: 30 minutes. ED Medical Decision Making - Lab Data Result diagrams: 12/14/21 11:46 12/14/21 11:46 Critical care attestation.: If time is entered above; I have spent that time in minutes in the direct care of this critically ill patient, excluding procedure time. ED Disposition Clinical Impression: Arterial occlusion Disposition: 02 [facility] Is pt being admited?: Yes Does the pt Need Aspirin: No Condition: Stable
[2021-12-14 12:14] LABS: Basophils % (Auto) 0.3 % (0.0-1.8); Eosinophils # (Auto) 0.1 K/mm3 (0.0-0.4); Eosinophils % (Auto) 1.9 % (0.0-4.3); Hematocrit 48.1 % (30.3-42.9); Lymphocytes % (Auto) 34.6 % (13.4-35.0); Mean Corpuscular HGB Conc 33 % (30-34); Mean Corpuscular Volume 87 fl (79-97); Monocytes # (Auto) 0.6 K/mm3 (0.0-0.8); Monocytes % (Auto) 10.6 % (0.0-7.3); Platelet Count 276 K/mm3 (140-440); Red Blood Count 5.55 M/mm3 (3.65-5.03)
[2021-12-14 12:19] LABS: Albumin 4.4 g/dL (3.9-5); Calcium 9.3 mg/dL (8.4-10.2)
[2021-12-14 12:20] LABS: Red Cell Distribution Width 20.9 % (13.2-15.2)
[2021-12-14 12:24] LABS: INR 0.99 (0.87-1.13)
[2021-12-14 12:25] LABS: Partial Thromboplastin Time 32.8 Sec. (24.2-36.6)
[2021-12-14] MEDS ORDERED: HEPARIN 10,000 UNITS/10 ML VIAL IV PRN (12:44)
--- NOTE | 2021-12-14 12:56 | History and Physical Report ---
History of Present Illness Chief complaint: My leg hurts and is cold History of present illness: 36 YO Female with DM complicated by Peripheral Neuropathy, PVD, ESRD on HD(M,W,F), Obesity presents to ED for evaluation. Patient reports "my leg hurts and is cold". Patient states that she had experienced pain and coldness to her left leg over the past 1 day with persistent symptoms over the same timeframe. Patient was seen and evaluated in her vascular surgeon's office today. Patient underwent an ultrasound and was found to have left lower extremity arterial occlusion. Patient transported to [facility] via private vehicle for further care and evaluation of the aforementioned symptoms. The patient was seen and evaluated in the emergency department. All lab and imaging studies reviewed. Patient found to have clinical findings consistent with left lower extremity arterial occlusion complicated by lower limb ischemia, end-stage renal disease in need of dialysis, hyponatremia. Vascular surgery team consulted. Patient initiated on heparin drip and taken urgently to the operating room. Nephrology team consul jace in ED for urgent dialysis. Patient denies fever, chills, chest pain, palpitation, adductive cough, skin rash, recent contact, known exposure to COVID-19. Prior admission on 06/04/2019 reviewed. All medication listed at time of admission has been reconciled. Advanced care planning conducted in ED. Past History Past Medical History: diabetes, ESRD, PVD Past Surgical History: Other (Dialysis access, bilateral partial foot amputations, vascular surgery) Social history: single. denies: smoking, alcohol abuse Family history: diabetes, hypertension Medications and Allergies Allergies Allergy/AdvReac Type Severity Reaction Status Date / Time shellfish derived Allergy Itching Verified 06/03/19 11:53 Home Medications Medication Instructions Recorded Confirmed Last Taken Type Apixaban [Eliquis] 2.5 mg PO QDAY 12/14/21 12/14/21 Unknown History Ferric Citrate (Nf) [Auryxia] 210 mg PO QDAY 12/14/21 12/14/21 Unknown History Gabapentin [Neurontin] 300 mg PO Q8HR 12/14/21 12/14/21 Unknown History Midodrine [Proamatine] 10 mg PO TID@0800,1200,1600 12/14/21 12/14/21 Unknown History Oxycodone HCl/Acetaminophen 1 each PO Q8HR 12/14/21 12/14/21 Unknown History [Oxycodone-Acetaminophen 5-300] Pantoprazole [Protonix] 40 mg PO QDAY 12/14/21 12/14/21 Unknown History Sevelamer Carbonate [Renvela] 800 mg PO TIDWM 12/14/21 12/14/21 Unknown History Active Meds: Active Medications Heparin Sodium (Porcine) (Heparin 10,000 Units/10 Ml Vial) 3,600 unit 40 unit/kg (3600 unit) IV Q6H PRN PRN Reason: Anti-Xa Assay < 0.1 units/ml Heparin Sodium/Sodium Chloride (Heparin/ 0.45% Nacl-25,000 Unit/500 Ml) 25,000 unit in 500 mls @ 26.807 mls/hr IV TITR CHARLA; Protocol Review of Systems Constitutional: no weight loss, no weight gain, no fever, no chills Ears, nose, mouth and throat: no ear pain, no tinnitis, no decreased hearing, no nasal congestion Breasts: no change in shape, no mass Cardiovascular: no chest pain, no orthopnea, no rapid/irregular heart beat, no edema Respiratory: no cough, no cough with sputum, no hemoptysis, no shortness of breath Gastrointestinal: no abdominal pain, no nausea, no diarrhea, no constipation, no change in bowel habits Genitourinary Female: no pelvic pain, no flank pain, no dysuria, no urinary frequency, no urgency Rectal: no pain, no incontinence, no bleeding Musculoskeletal: other (Leg pain, coldness), no neck stiffness, no shooting arm pain, no low back pain, no shooting leg pain Integumentary: no rash, no pruritis, no redness, no sores, no wounds Neurological: no head injury, no transient paralysis, no weakness, no parathesias, no tingling, no seizures, no syncope Psychiatric: no anxiety, no change in sleep habits, no sleep disturbances, no insomnia, no change in appetite, no suicidal ideation Endocrine: no cold intolerance, no heat intolerance, no polyphagia, no excessive thirst, no polyuria Hematologic/Lymphatic: no easy bruising, no easy bleeding Allergic/Immunologic: no allergic rhinitis, no wheezing Exam - Constitutional Vitals: Temp Pulse Resp BP Pulse Ox 98.3 F 98 H 17 106/66 100 12/14/21 11:00 12/14/21 11:00 12/14/21 11:00 12/14/21 11:00 12/14/21 12:11 General appearance: Present: mild distress, obese - EENT Eyes: Present: PERRL ENT: hearing intact, clear oral mucosa - Neck Neck: Present: supple, normal ROM - Respiratory Respiratory effort: normal Respiratory: bilateral: CTA - Cardiovascular Heart Sounds: Present: S1 & S2. Absent: rub, click - Extremities Extremities: no ischemia, No edema, abnormal Extremity abnormal: pulses diminished Peripheral Pulses: abnormal (Distal pulses diminished left lower extremity) - Abdominal General gastrointestinal: Present: soft, non-tender, non-distended, normal bowel sounds Female genitourinary: Present: normal - Integumentary Integumentary: Present: clear, warm, dry - Musculoskeletal Musculoskeletal: gait normal, strength equal bilaterally - Psychiatric Psychiatric: appropriate mood/affect, intact judgment & insight - Neurologic Neurologic: CNII-XII intact, moves all extremities Results - Labs CBC & Chem 7: 12/14/21 11:46 12/14/21 14:10 Labs: Abnormal lab results 12/14/21 12/14/21 Range/Units 11:46 11:46 RBC 5.55 H (3.65-5.03) M/mm3 Hgb 16.0 H (10.1-14.3) gm/dl Hct 48.1 H (30.3-42.9) % RDW 20.9 H (13.2-15.2) % [place] % (Auto) 10.6 H (0.0-7.3) % Sodium 135 L (137-145) mmol/L Chloride 91.4 L (98-107) mmol/L BUN 65 H (7-17) mg/dL Glucose 207 H (65-100) mg/dL Total Protein 8.6 H (6.3-8.2) g/dL Assessment and Plan - Patient Problems (1) Ischemia of left lower extremity Current Visit: Yes Status: Acute Plan to address problem: Vascular surgery service consulted, heparin drip, supportive care, patient taken urgently to operating room for surgical intervention. The high probability of a clinically significant, sudden or life threatening deterioration of the [vascular, renal,] system(s) required my full and direct attention, intervention and personal management. The aggregate critical care time was [65] minutes. This time is in addition to time spent performing re ported procedures but includes the following: [x] Data Review and interpretation [x] Patient assessment and monitoring of vital signs [x] Documentation [x] Medication orders and management (2) Arterial occlusion Current Visit: No Status: Acute Plan to address problem: Therapeutic anticoagulation, supportive care, surgical intervention as per vascular surgery team. (3) Diabetic neuropathy Current Visit: No Status: Acute Plan to address problem: Consistent carbohydrate diet, Accu-Chek, insulin protocol, hypoglycemia protocol (4) End stage renal disease on dialysis Current Visit: No Status: Acute Plan to address problem: Nephrology team consulted in ED, dialysis as per renal team (5) DVT prophylaxis Current Visit: Yes Status: Acute Plan to address problem: SCD to bilateral lower extremities while in bed, continue therapeutic anticoagulation (6) Advance care planning Current Visit: Yes Status: Acute Plan to address problem: Disease education conducted, care plan discussed, diagnoses discussed, prognosis discussed, patient is full code, patient acknowledges understanding and agreement with care plan, +30 minutes.
[2021-12-14] MEDS ORDERED: HEPARIN/ 0.45% NACL DRIP 25,000 UNIT/500 ML BAG IV SCH (13:00)
[2021-12-14] MEDS ORDERED: DEXTROSE 50% IN WATER (25GM) 50 ML SYRINGE IV PRN (13:07)
[2021-12-14] MEDS ORDERED: oxyCODONE /ACETAMINOPHEN 5-325MG TAB PO PRN (13:07)
[2021-12-14] MEDS ORDERED: ACETAMINOPHEN 325 MG TAB PO PRN (13:07)
[2021-12-14] MEDS ORDERED: HYDROmorphone 1 MG/1 ML INJ IV PRN (13:07)
[2021-12-14] MEDS ORDERED: ONDANSETRON 4 MG/2 ML INJ IV PRN (13:07)
[2021-12-14] MEDS ORDERED: ALBUTEROL 2.5 MG/3 ML NEBU IH PRN (13:07)
[2021-12-14] MEDS ORDERED: SODIUM CHLORIDE 0.9% 1000 ML 1,000 ML IV SCH ×2 (13:15→17:00)
[2021-12-14] MEDS ORDERED: SODIUM BICARB 8.4% 50 MEQ/50 ML SYRINGE IV ONE (13:20)
[2021-12-14] MEDS ORDERED: DEXTROSE 50% IN WATER (25GM) 50 ML SYRINGE IV ONE ×2 (13:20→16:05)
[2021-12-14] MEDS ORDERED: INSULIN REGULAR, HUMAN 100 UNITS/1 ML IV ONE (13:20)
--- NOTE | 2021-12-14 14:15 | Consultation ---
History of Present Illness - Reason for Consult Consult date: 12/14/21 Cold leg Requesting physician: HAILY GÓMEZ - History of Present Illness 36-year-old female with past medical history of diabetes complicated by peripheral neuropathy, end-stage renal disease (Monday) on hemodialysis, peripheral vascular disease complicated by bilateral TMA's and multiple interventions who presents with ischemic left lower extremity. Patient was recently intervened on for thrombectomy of the left popliteal artery with stent placement and had done well afterwards with anticoagulation and antiplatelet therapy. She was recently transitioned to antiplatelet therapy alone and during hemodialysis session she becomes significantly hypotensive. On Monday, after Monday's hemodialysis session, she developed pain in her left leg requiring her to hang the foot off the bed, and after Monday's dialysis, began to have significant left leg pain. She now presents with left foot and lower calf pain. The foot and lower calf are cool. She has nonpalpable pedal pulses bilaterally. She has intact motor of her left TMA. Past Medical History Previous Medical History?: Yes Hx Diabetes: Yes Hx Renal Disease: Yes Additional medical history: Peripheral vascular disease end-stage renal disease Surgical History Past Surgical History?: No Additional Surgical History: Bilateral partial foot amputations; she has had vascular surgery interventions in her lower extremities Family History Family history: no significant Social History Smoking Status: Former Smoker Substance Use Type: None Medications and Allergies Allergies Allergy/AdvReac Type Severity Reaction Status Date / Time shellfish derived Allergy Itching Verified 06/03/19 11:53 Home Medications Medication Instructions Recorded Confirmed Last Taken Type Apixaban [Eliquis] 2.5 mg PO QDAY 12/14/21 12/14/21 Unknown History Ferric Citrate (Nf) [Auryxia] 210 mg PO QDAY 12/14/21 12/14/21 Unknown History Gabapentin [Neurontin] 300 mg PO Q8HR 12/14/21 12/14/21 Unknown History Midodrine [Proamatine] 10 mg PO TID@0800,1200,1600 12/14/21 12/14/21 Unknown History Oxycodone HCl/Acetaminophen 1 each PO Q8HR 12/14/21 12/14/21 Unknown History [Oxycodone-Acetaminophen 5-300] Pantoprazole [Protonix] 40 mg PO QDAY 12/14/21 12/14/21 Unknown History Sevelamer Carbonate [Renvela] 800 mg PO TIDWM 12/14/21 12/14/21 Unknown History Active Meds: Active Medications Acetaminophen (Acetaminophen 325 Mg Tab) 650 mg PO Q4H PRN PRN Reason: Pain MILD(1-3)/Fever >100.5/MIJARES Albuterol (Albuterol 2.5 Mg/3 Ml Nebu) 2.5 mg IH Q4HRT PRN PRN Reason: Shortness Of Breath Dextrose (Dextrose 50% In Water (25gm) 50 Ml Syringe) 50 ml IV Q30MIN PRN; Protocol PRN Reason: Hypoglycemia Heparin Sodium (Porcine) (Heparin 10,000 Units/10 Ml Vial) 3,600 unit 40 unit/kg (3600 unit) IV Q6H PRN PRN Reason: Anti-Xa Assay < 0.1 units/ml Hydromorphone HCl (Hydromorphone 1 Mg/1 Ml Inj) 0.5 mg IV Q8H PRN PRN Reason: Pain , Severe (7-10) Heparin Sodium/Sodium Chloride (Heparin/ 0.45% Nacl-25,000 Unit/500 Ml) 25,000 unit in 500 mls @ 26 mls/hr IV TITR CHARLA; Protocol Sodium Chloride (Nacl 0.9% 1000 Ml) 1,000 mls @ 75 mls/hr IV DIRECT CHARLA Insulin Human Lispro (Insulin Lispro 100 Unit/Ml) 0 unit SUB-Q Q6HR CHARLA; Protocol Ondansetron HCl (Ondansetron 4 Mg/2 Ml Inj) 4 mg IV Q8H PRN PRN Reason: Nausea And Vomiting Oxycodone/Acetaminophen (Oxycodone /Acetaminophen 5-325mg Tab) 1 tab PO Q6H PRN PRN Reason: Pain, Moderate (4-6) Sodium Chloride (Sodium Chloride 0.9% 10 Ml Flush Syringe) 10 ml IV BID CHARLA Sodium Chloride (Sodium Chloride 0.9% 10 Ml Flush Syringe) 10 ml IV PRN PRN PRN Reason: LINE FLUSH Review of Systems All systems: negative (see HPI) Exam - Constitutional Vitals: Temp Pulse Resp BP Pulse Ox 98.3 F 98 H 17 106/66 100 12/14/21 11:00 12/14/21 11:00 12/14/21 11:00 12/14/21 11:00 12/14/21 12:11 General appearance: Present: no acute distress - EENT Eyes: Present: EOM intact ENT: hearing intact - Respiratory Respiratory effort: normal - Extremities Extremities: abnormal (see HPI) - Abdominal General gastrointestinal: Present: soft, non-tender - Psychiatric Psychiatric: appropriate mood/affect, cooperative Results - Labs CBC & Chem 7: 12/14/21 11:46 12/14/21 11:46 Labs: Abnormal lab results 12/14/21 12/14/21 Range/Units 11:46 11:46 RBC 5.55 H (3.65-5.03) M/mm3 Hgb 16.0 H (10.1-14.3) gm/dl Hct 48.1 H (30.3-42.9) % RDW 20.9 H (13.2-15.2) % Stearns % (Auto) 10.6 H (0.0-7.3) % Sodium 135 L (137-145) mmol/L Potassium 7.0 H* (3.6-5.0) mmol/L Chloride 91.4 L (98-107) mmol/L BUN 65 H (7-17) mg/dL Creatinine 13.7 H (0.6-1.2) mg/dL Glucose 207 H (65-100) mg/dL Total Protein 8.6 H (6.3-8.2) g/dL Assessment and Plan 36-year-old female with diabetic neuropathy, peripheral vascular disease, end- stage renal disease on hemodialysis presents with left lower extremity arterial ischemia. Arterial ultrasound performed today demonstrates popliteal and infrapopliteal arterial occlusion. Suspect stent thrombosis secondary to hypotension. After revascularization, patient will need to be on antiplatelet therapy and anticoagulation for life. Probably use Plavix and Eliquis. Discussed endovascular revascularization of the left lower extremity with thrombolysis, with overnight ICU stay. Also discussed thrombectomy. Discussed monitoring for compartment syndrome and fasciotomies if required. Patient understands. Risks, benefits, alternatives discussed, patient agreed with procedure.
[2021-12-14] MEDS ORDERED: LIDOCAINE (2%) 20 MG/1 ML VIAL 50 ML MDV INFILTRATI ONE (15:55)
[2021-12-14] MEDS ORDERED: HEPARIN/NS 5000 UNIT/500ML 500 ML IR ONE ×2 (15:55→16:41)
[2021-12-14] MEDS ORDERED: SODIUM CHLORIDE 0.9% 1000 ML 1,000 ML ONE (15:55)
[2021-12-14] MEDS ORDERED: HEPARIN/ 0.45% NACL DRIP 25,000 UNIT/500 ML BAG ONE (15:55)
[2021-12-14] MEDS ORDERED: methylPREDNISolone Sod Succinate 125 MG/2 ML INJ ONE (16:05)
[2021-12-14] MEDS ORDERED: SODIUM CHLORIDE 0.9% 500 ML 500 ML ONE ×2 (16:08→19:09)
[2021-12-14] MEDS ORDERED: FAMOTIDINE 20 MG/2 ML INJ IV ONE (16:15)
[2021-12-14] MEDS: diphenhydrAMINE 50 MG/ML VIAL ONE (16:20)
[2021-12-14] MEDS ORDERED: MIDAZOLAM 2 MG/2 ML INJ ONE (16:30)
[2021-12-14] MEDS: fentaNYL 100 MCG/2 ML INJ ONE (16:35)
[2021-12-14] MEDS: HEPARIN 10,000 UNITS/10 ML VIAL ONE ×2 (16:49→17:01)
[2021-12-14] MEDS ORDERED: SODIUM CHLORIDE 0.9% 1000 ML 1,000 ML SHEATH SCH (17:00)
[2021-12-14] MEDS: ALTEPLASE 2 MG INJ ONE (17:00)
[2021-12-14] MEDS ORDERED: SODIUM CHLORIDE 0.9% 1000 ML 1,000 ML EKOSCLUMEN SCH (17:00)
[2021-12-14] MEDS ORDERED: HEPARIN/ 0.45% NACL DRIP 25,000 UNIT/500 ML BAG SHEATH SCH (17:00)
--- NOTE | 2021-12-14 17:00 | Consultation ---
History of Present Illness Consult date: 12/14/21 Requesting physician: HAILY GÓMEZ Reason for consult: other (acute limb ischemia) History of present illness: 36 year old woman with DM complicated by Peripheral Neuropathy, PVD, ESRD on HD(M,W,F), Obesity presents to ED for evaluation. Patient reports "my leg hurts and is cold". Patient states that she had experienced pain and coldness to her left leg over the past 1 day with persistent symptoms over the same timeframe. Patient was seen and evaluated in her vascular surgeon's office today. Patient underwent an ultrasound and was found to have left lower extremity arterial occlusion- acute limb ischemia She is s/pAngiography of the right lower extremity and Fluoroscopic guided placement of a 12 cm x 135 cm EKOS thrombolysis catheter in the left popliteal artery, admitted to the ICU for monitoring post procedure. Patient seen and examined. Vitals, albs, medications, chart reviewed. She is drowsy, but intermittently wakes up complaining on on going pain in her leg Past History Past Medical History: diabetes, ESRD, PVD Past Surgical History: Other (Dialysis access, bilateral partial foot amputations, vascular surgery) Social history: single. denies: smoking, alcohol abuse Family history: diabetes, hypertension Medications and Allergies Allergies Allergy/AdvReac Type Severity Reaction Status Date / Time shellfish derived Allergy Itching Verified 12/15/21 08:30 Home Medications Medication Instructions Recorded Confirmed Last Taken Type Apixaban [Eliquis] 2.5 mg PO QDAY 12/14/21 12/14/21 Unknown History Ferric Citrate (Nf) [Auryxia] 210 mg PO QDAY 12/14/21 12/14/21 Unknown History Gabapentin [Neurontin] 300 mg PO Q8HR 12/14/21 12/14/21 Unknown History Midodrine [Proamatine] 10 mg PO TID@0800,1200,1600 12/14/21 12/14/21 Unknown History Oxycodone HCl/Acetaminophen 1 each PO Q8HR 12/14/21 12/14/21 Unknown History [Oxycodone-Acetaminophen 5-300] Pantoprazole [Protonix] 40 mg PO QDAY 12/14/21 12/14/21 Unknown History Sevelamer Carbonate [Renvela] 800 mg PO TIDWM 12/14/21 12/14/21 Unknown History Active Meds: Active Medications Acetaminophen (Acetaminophen 325 Mg Tab) 650 mg PO Q4H PRN PRN Reason: Pain MILD(1-3)/Fever >100.5/MIJARES Albuterol (Albuterol 2.5 Mg/3 Ml Nebu) 2.5 mg IH Q4HRT PRN PRN Reason: Shortness Of Breath Dextrose (Dextrose 50% In Water (25gm) 50 Ml Syringe) 50 ml IV Q30MIN PRN; Protocol PRN Reason: Hypoglycemia Gabapentin (Gabapentin 300 Mg Cap) 300 mg PO Q8HR CHARLA Heparin Sodium (Porcine) (Heparin 10,000 Units/10 Ml Vial) 3,600 unit 40 unit/kg (3600 unit) IV Q6H PRN PRN Reason: Anti-Xa Assay < 0.1 units/ml Hydromorphone HCl (Hydromorphone 1 Mg/1 Ml Inj) 0.5 mg IV Q8H PRN PRN Reason: Pain , Severe (7-10) Heparin Sodium/Sodium Chloride (Heparin/ 0.45% Nacl-25,000 Unit/500 Ml) 25,000 unit in 500 mls @ 26 mls/hr IV TITR CHARLA; Protocol Sodium Chloride (Nacl 0.9% 1000 Ml) 1,000 mls @ 75 mls/hr IV DIRECT CHARLA Sodium Chloride (Nacl 0.9% 1000 Ml) 1,000 mls @ 30 mls/hr IV DIRECT CHARLA Alteplase, Recombinant 20 mg/ (Sodium Chloride) 500 mls @ 25 mls/hr EKOSDLUMEN DIRECT STA Stop: 12/15/21 12:52 Sodium Chloride (Nacl 0.9% 1000 Ml) 1,000 mls @ 30 mls/hr SHEATH DIRECT CHARLA Sodium Chloride (Nacl 0.9% 1000 Ml) 1,000 mls @ 35 mls/hr EKOSCLUMEN DIRECT CHARLA Heparin Sodium/Sodium Chloride (Heparin/ 0.45% Nacl-25,000 Unit/500 Ml) 25,000 unit in 500 mls @ 10 mls/hr SHEATH DIRECT CHARLA; Protocol Insulin Human Lispro (Insulin Lispro 100 Unit/Ml) 0 unit SUB-Q Q6HR CHARLA; Protocol Midodrine (Midodrine 10 Mg Tab) 10 mg PO TID@0800,1200,1600 CHARLA Miscellaneous Medication (Ferric Citrate (Nf)) 210 mg PO QDAY [facility] Ondansetron HCl (Ondansetron 4 Mg/2 Ml Inj) 4 mg IV Q8H PRN PRN Reason: Nausea And Vomiting Oxycodone/Acetaminophen (Oxycodone /Acetaminophen 5-325mg Tab) 1 tab PO Q6H PRN PRN Reason: Pain, Moderate (4-6) Pantoprazole Sodium (Pantoprazole 40 Mg Tab) 40 mg PO QDAY [facility] Sevelamer Carbonate (Sevelamer Carbonate 800 Mg Tab) 800 mg PO TIDWM CHARLA Sodium Chloride (Sodium Chloride 0.9% 10 Ml Flush Syringe) 10 ml IV BID CHARLA Sodium Chloride (Sodium Chloride 0.9% 10 Ml Flush Syringe) 10 ml IV PRN PRN PRN Reason: LINE FLUSH Sodium Chloride (Sodium Chloride 0.9% 10 Ml Flush Syringe) 10 ml IV BID CHARLA Sodium Chloride (Sodium Chloride 0.9% 10 Ml Flush Syringe) 10 ml IV PRN PRN PRN Reason: LINE FLUSH Review of Systems All systems: negative (as in HPI) Physical Examination Vital signs: Vital Signs Temp Pulse Resp BP Pulse Ox 98.3 F 98 H 17 106/66 98 12/14/21 11:00 12/14/21 11:00 12/14/21 11:00 12/14/21 11:00 12/14/21 11:00 General appearance: Present: mild distress, obese - EENT Eyes: Present: PERRL ENT: hearing intact - Neck Neck: Present: normal ROM - Respiratory Respiratory effort: normal Respiratory: bilateral: diminished - Cardiovascular Rhythm: regular Heart Sounds: Present: S1 & S2 - Extremities Extremities: abnormal (LLE ischemia. LLE cold to touch with no palpable pulses) Peripheral Pulses: abnormal (LLE ischemia. LLE cold to touch with no palpable pulses) - Abdominal General gastrointestinal: soft, non-distended, normal bowel sounds - Integumentary Integumentary: Present: warm, dry - Psychiatric Psychiatric: cooperative, flat affect - Neurologic Neurologic: moves all extremities Results - Laboratory Findings CBC and BMP: 12/15/21 10:27 12/15/21 10:27 PT/INR, D-dimer PT 14.2 Sec. (12.2-14.9) 12/14/21 11:46 INR 0.99 (0.87-1.13) 12/14/21 11:46 Abnormal lab findings: Abnormal Labs 12/14/21 12/14/21 12/14/21 11:46 11:46 14:10 RBC 5.55 H Hgb 16.0 H Hct 48.1 H RDW 20.9 H Hardy % (Auto) 10.6 H Sodium 135 L Potassium 7.0 H* 5.2 H D Chloride 91.4 L 92.9 L BUN 65 H 66 H Creatinine 13.7 H 13.7 H Glucose 207 H 136 H Total Protein 8.6 H Assessment and Plan Acute Limb Ischemia of Left Lower Extremity s/p EKOS thrombolysis catheter in the left popliteal Arterial Occlusion Diabetic Neuropathy Peripheral Vascular Disease(PVD) - H/o recent LLE thrombectomy with stent placement End Stage Renal Disease(ESRD) on HD Hyperkalemia Uncontrolled DM Acute Pain -ICU admission -Pain management, multi-modal therapy to help limit narcotic analgesia use -Continue to monitor electrolyte -Continue with thrombolytic therapy, TPA and heparin, via EKOS catheter- Vascula r managing -Vascular/pulses checks -Continue HD per Renal service -Avoid nephrotoxic medications, Renally dose medications - Monitor and replace electrolytes as needed - Plan for tomorrow for EKOS catheter removal and further vascular intervention in the morning -Accuchecks, glycemic control- target blood glucose 140-180mg/dL -Diabetic education, lifestyle modifications The high probability of a clinically significant, sudden or life threatening deterioration of the [multiple] system(s) required my full and direct attention, intervention and personal management. The aggregate critical care time was [35 ] minutes. This time is in addition to time spent performing reported procedures but includes the following: [x] Data Review and interpretation [x] Patient assessment and monitoring of vital signs [x] Documentation
[2021-12-14 17:01] LABS: Basophils # (Auto) 0.1 K/mm3 (0.0-0.1); Basophils % (Auto) 1.3 % (0.0-1.8); Eosinophils # (Auto) 0.1 K/mm3 (0.0-0.4); Eosinophils % (Auto) 1.7 % (0.0-4.3); Hematocrit 44.3 % (30.3-42.9); Hemoglobin 14.3 gm/dl (10.1-14.3); Lymphocytes # (Auto) 1.7 K/mm3 (1.2-5.4); Lymphocytes % (Auto) 31.6 % (13.4-35.0); Mean Corpuscular HGB Conc 32 % (30-34); Mean Corpuscular Volume 87 fl (79-97); Monocytes # (Auto) 0.6 K/mm3 (0.0-0.8); Monocytes % (Auto) 11.7 % (0.0-7.3); Platelet Count 250 K/mm3 (140-440); Red Blood Count 5.13 M/mm3 (3.65-5.03)
[2021-12-14 17:02] LABS: Red Cell Distribution Width 20.6 % (13.2-15.2)
[2021-12-14] MEDS ORDERED: ALTEPLASE 20 MG in SODIUM CHLORIDE 0.9% 500 ML 500 ML EKOSDLUMEN STA (17:05)
[2021-12-14 17:12] LABS: INR 1.14 (0.87-1.13)
[2021-12-14 17:14] LABS: Fibrinogen 522 mg/dl (211-480)
[2021-12-14] MEDS ORDERED: HYDROcodone/ACETAMINOPHEN 5-325 MG TAB PO PRN ×2 (17:15→17:35)
--- NOTE | 2021-12-14 17:22 | Post Operative Note ---
Date of procedure: 12/14/21 Pre-op diagnosis: Acute limb ischemia of the left lower extremity Post-op diagnosis: same Procedure: 1. Ultrasound guided access of the right common femoral artery 2. Angiography of the right lower extremity 3. Selection of aorta with angiography 4. Selection of the left external iliac artery, superficial femoral artery and popliteal artery with angiography 5. Fluoroscopic guided placement of a 12 cm x 135 cm EKOS thrombolysis catheter in the left popliteal artery Anesthesia: local (w/ conscious sedation) Surgeon: ELENI REBOLLEDO Estimated blood loss: minimal Condition: stable Disposition: ICU
--- NOTE | 2021-12-14 17:24 | Operative Report ---
Operative Report Operative Report: EXAM: 1. Ultrasound guided access of the right common femoral artery 2. Angiography of the right lower extremity 3. Selection of aorta with angiography 4. Selection of the left external iliac artery, superficial femoral artery and popliteal artery with angiography 5. Fluoroscopic guided placement of a 12 cm x 136 cm EKOS thrombolysis catheter in the left popliteal artery DATE: 12/14/2021 ECONOMETRICS PROFESSOR: ELENI REBOLLEDO MD INDICATION: Arterial thrombus of the left lower extremity with acute limb ischemia. MEDICATIONS: Please see nursing report for full details. DEVICES: 6 [place] thrombolytic EKOS catheter 12 cm x 136 cm CONTRAST: Please see [employer] report for full details. PROCEDURE: The risks, benefits, and alternatives were discussed with the patient; written informed consent was obtained. The patient was brought to the angiography suite in stable condition. Groins were prepped and draped in a sterile fashion. Ultrasound was used to evaluate the right common femoral artery which was patent. Under direct ultrasound guidance, the right common femoral artery was accessed with a 21-gauge micropuncture needle. 0.018 inch wire was passed into the aorta. Needle was exchanged for transitional dilator. Wire was exchanged for a 0.035 inch wire. Transitional dilator was exchanged for a 6 [place] sheath. Digital subtraction angiography was performed demonstrating patency of the right external iliac artery, at least 50% narrowing of the right common femoral artery, patency of the right proximal superficial femoral artery, and profunda femoral artery. The abdominal aorta was selected and digital subtraction angiography was performed. The left external iliac artery, superficial femoral artery, and [id number] popliteal artery were selected and digital subtraction angiography was performed. Digital subtraction angiography demonstrated patency of the infrarenal abdominal aorta, 30% scattered narrowing of the iliac arteries without hemodynamically significant narrowing. Internal iliac arteries also have this narrowing. The left common femoral artery had less than 30% stenosis. The left proximal, mid, and distal superficial femoral artery had less than 20% stenosis. Left profunda femoral artery was patent. The [id number] popliteal artery had less than 20% stenosis. The stented portion of the left popliteal artery was occluded. The proximal tibioperoneal trunk was occluded. There was collateral flow providing flow to the distal tibioperoneal trunk and the peroneal and posterior tibial artery. After reviewing the diagnostic angiogram, the patient was further heparinized. Sheath was exchanged for 6 [place] 45 cm [place] destination positioned in the left common femoral artery. Bentson wire and angled cath were then used to cross the popliteal artery acute occlusion. Angled catheter was then exchanged for a 12 cm x 136 cm EKOS thrombolytic catheter positioned in the left popliteal artery. 4 mg of TPA were used to dwell the catheter and 2 mg of TPA were passed into the central portion of the catheter. Thrombolytic wire was then passed into the catheter. Sheath was then developed with 1500 units of heparin. Sheath was secured with 2-0 Ethilon and thrombolytic catheter was secured with 2-0 Ethilon. Sterile and pressure dressings were applied. Patient was then hooked up to the thrombolytic catheter infusion device and saline and TPA were administered. The patient was then sent to the ICU in stable condition. Patient tolerated procedure well. No immediate postprocedural complications. FINDINGS: Please see procedure note above. IMPRESSION: Successful thrombolytic catheter placement in the left popliteal artery. Third order selection of the left popliteal artery. Diagnostic angiography as described above. Ultrasound-guided access of the right common femoral artery.
--- NOTE | 2021-12-14 17:24 | Event Note ---
Date: 12/14/21 Successful placement of thrombolytic catheter in the LLE. Will bring back tomorrow. Can eat today. NPO after MN except sips with meds. Heparin through sheath @ standard 500 units/hr. TPA through catheter @ 0.5 mg/hr.
[2021-12-14 17:33] LABS: Partial Thromboplastin Time > 240.0 Sec. (24.2-36.6)
[2021-12-14 17:34] LABS: Calcium 8.6 mg/dL (8.4-10.2)
[2021-12-14] MEDS: HYDROmorphone 1 MG/1 ML INJ IV PRN ×3 (17:48→22:03)
[2021-12-14] MEDS: HYDROcodone/ACETAMINOPHEN 5-325 MG TAB PO PRN (18:51)
[2021-12-14] MEDS ORDERED: HYDROmorphone 2 MG/1 ML INJ IV ONE (21:00)
[2021-12-14] MEDS ORDERED: GABAPENTIN 300 MG CAP PO SCH (22:00)
[2021-12-15 00:04] LABS: Mean Corpuscular HGB Conc 31 % (30-34); Mean Corpuscular Volume 90 fl (79-97); Platelet Count 262 K/mm3 (140-440)
[2021-12-15 00:06] LABS: Hematocrit 52.9 % (30.3-42.9); Hemoglobin 16.4 gm/dl (10.1-14.3); Red Cell Distribution Width 21.2 % (13.2-15.2)
[2021-12-15 00:44] LABS: Calcium 8.5 mg/dL (8.4-10.2)
[2021-12-15] MEDS: HYDROmorphone 1 MG/1 ML INJ IV PRN ×7 (01:06→15:56)
[2021-12-15] MEDS: INSULIN LISPRO 100 UNIT/ML SUB-Q SCH ×4 (01:17→17:57)
[2021-12-15] MEDS ORDERED: INSULIN REGULAR, HUMAN 100 UNITS/1 ML IV STA (01:54)
[2021-12-15] MEDS ORDERED: SODIUM BICARB 8.4% 50 MEQ/50 ML SYRINGE IV STA (01:57)
[2021-12-15] MEDS ORDERED: DEXTROSE 50% IN WATER (25GM) 50 ML SYRINGE IV STA (01:58)
[2021-12-15] MEDS ORDERED: ALBUTEROL 2.5 MG/3 ML NEBU IH STA (01:59)
[2021-12-15] MEDS ORDERED: CALC GLUCONATE 1GM/NS 100 ML 1 GM/100 ML BAG IV ONE (02:00)
[2021-12-15] MEDS ORDERED: SODIUM CHLORIDE 0.9% 100 ML IV PRN (02:01)
--- NOTE | 2021-12-15 02:03 | Event Note ---
Appreciate nephrology consult. Official consult will follow In short, this is a 37 yearold woman with ESRD (known to [facility] and follows at [facility] for [facility] needs) who presents with concern for acute limb ischemia. Vascular following- due for additional procedure in AM, currently in ICU. Noted to have K 8.1 this AM- agree with medical measures but given severity of hyperkalemia and critical nature of patient, will order for stat HD.
[2021-12-15] MEDS: LORazepam 2 MG/ML VIAL IV PRN ×2 (02:41→17:19)
[2021-12-15 05:08] LABS: Basophils % (Auto) 0.1 % (0.0-1.8); Lymphocytes # (Auto) 0.8 K/mm3 (1.2-5.4); Lymphocytes % (Auto) 7.6 % (13.4-35.0); Mean Corpuscular HGB Conc 30 % (30-34); Mean Corpuscular Volume 88 fl (79-97); Monocytes # (Auto) 0.4 K/mm3 (0.0-0.8); Monocytes % (Auto) 4.3 % (0.0-7.3); Platelet Count 234 K/mm3 (140-440); Red Blood Count 6.14 M/mm3 (3.65-5.03)
[2021-12-15 05:10] LABS: Hemoglobin 16.4 gm/dl (10.1-14.3); Red Cell Distribution Width 20.8 % (13.2-15.2)
[2021-12-15 05:34] LABS: Hepatitis B Surface Antigen Non-Reactive (Negative); Hepatitis C Virus Antibody Non-Reactive (NonReactive)
[2021-12-15 05:57] LABS: Anisocytosis 1+; Basophils % (Manual) 0 % (0.0-1.8); Eosinophils % (Manual) 0 % (0.0-4.3); Monocytes % (Manual) 0 % (0.0-7.3); Total Cells Counted 100
[2021-12-15 06:00] LABS: Platelet Estimate Consistent w Auto
[2021-12-15 07:35] LABS: Albumin 4.4 g/dL (3.9-5); Calcium 9.6 mg/dL (8.4-10.2)
[2021-12-15] MEDS: SEVELAMER CARBONATE 800 MG TAB PO SCH ×3 (07:56→16:39)
[2021-12-15] MEDS: MIDODRINE 10 MG TAB PO SCH ×3 (08:21→16:09)
--- NOTE | 2021-12-15 09:45 | Consultation ---
History of Present Illness - Reason for Consult Consult date: 12/15/21 end stage renal disease, hyperkalemia Past History Past Medical History: diabetes, ESRD, PVD Past Surgical History: Other (Dialysis access, bilateral partial foot amputations, vascular surgery) Social history: single. denies: smoking, alcohol abuse Family history: diabetes, hypertension Medications and Allergies Allergies Allergy/AdvReac Type Severity Reaction Status Date / Time shellfish derived Allergy Itching Verified 12/15/21 08:30 Home Medications Medication Instructions Recorded Confirmed Last Taken Type Apixaban [Eliquis] 2.5 mg PO QDAY 12/14/21 12/14/21 Unknown History Ferric Citrate (Nf) [Auryxia] 210 mg PO QDAY 12/14/21 12/14/21 Unknown History Gabapentin [Neurontin] 300 mg PO Q8HR 12/14/21 12/14/21 Unknown History Midodrine [Proamatine] 10 mg PO TID@0800,1200,1600 12/14/21 12/14/21 Unknown History Oxycodone HCl/Acetaminophen 1 each PO Q8HR 12/14/21 12/14/21 Unknown History [Oxycodone-Acetaminophen 5-300] Pantoprazole [Protonix] 40 mg PO QDAY 12/14/21 12/14/21 Unknown History Sevelamer Carbonate [Renvela] 800 mg PO TIDWM 12/14/21 12/14/21 Unknown History Active Meds: Active Medications Acetaminophen (Acetaminophen 325 Mg Tab) 650 mg PO Q4H PRN PRN Reason: Fever >100.5/MIJARES Hydrocodone Bitart/Acetaminophen (Hydrocodone/Acetaminophen 5-325 Mg Tab) 1 each PO Q4H PRN PRN Reason: Pain, Mild (1-3) Hydrocodone Bitart/Acetaminophen (Hydrocodone/Acetaminophen 5-325 Mg Tab) 2 each PO Q4H PRN PRN Reason: Pain, Moderate (4-6) Last Admin: 12/14/21 18:51 Dose: 2 each Albuterol (Albuterol 2.5 Mg/3 Ml Nebu) 2.5 mg IH Q4HRT PRN PRN Reason: Shortness Of Breath Dextrose (Dextrose 50% In Water (25gm) 50 Ml Syringe) 50 ml IV Q30MIN PRN; Protocol PRN Reason: Hypoglycemia Hydromorphone HCl (Hydromorphone 1 Mg/1 Ml Inj) 0.5 mg IV Q1H PRN PRN Reason: Pain , Severe (7-10) Last Admin: 12/15/21 08:17 Dose: 0.5 mg Sodium Chloride (Nacl 0.9% 1000 Ml) 1,000 mls @ 75 mls/hr IV DIRECT CHARLA Sodium Chloride (Nacl 0.9% 1000 Ml) 1,000 mls @ 30 mls/hr IV DIRECT CHARLA Alteplase, Recombinant 20 mg/ (Sodium Chloride) 500 mls @ 12.5 mls/hr EKOSDLUMEN DIRECT STA Stop: 12/16/21 09:04 Sodium Chloride (Nacl 0.9% 1000 Ml) 1,000 mls @ 30 mls/hr SHEATH DIRECT CHARLA Sodium Chloride (Nacl 0.9% 1000 Ml) 1,000 mls @ 35 mls/hr EKOSCLUMEN DIRECT CHARLA Heparin Sodium/Sodium Chloride (Heparin/ 0.45% Nacl-25,000 Unit/500 Ml) 25,000 unit in 500 mls @ 10 mls/hr SHEATH DIRECT CHARLA; Protocol Sodium Chloride (Nacl 0.9%) 100 mls @ 999 mls/hr IV CHELSEA PRN PRN Reason: Hypotension Insulin Human Lispro (Insulin Lispro 100 Unit/Ml) 0 unit SUB-Q Q6HR CHARLA; Protocol Last Admin: 12/15/21 06:36 Dose: 4 unit Lorazepam (Lorazepam 2 Mg/Ml Vial) 1 mg IV Q4H PRN PRN Reason: Agitation Last Admin: 12/15/21 02:41 Dose: 1 mg Midodrine (Midodrine 10 Mg Tab) 10 mg PO TID@0800,1200,1600 [facility] Last Admin: 12/15/21 08:21 Dose: Not Given Miscellaneous Medication (Ferric Citrate (Nf)) 210 mg PO QDAY CHARLA Ondansetron HCl (Ondansetron 4 Mg/2 Ml Inj) 4 mg IV Q8H PRN PRN Reason: Nausea And Vomiting Pantoprazole Sodium (Pantoprazole 40 Mg Tab) 40 mg PO QDAY CHARLA Sevelamer Carbonate (Sevelamer Carbonate 800 Mg Tab) 800 mg PO TIDWM [facility] Last Admin: 12/15/21 07:56 Dose: Not Given Sodium Chloride (Sodium Chloride 0.9% 10 Ml Flush Syringe) 10 ml IV BID CHARLA Last Admin: 12/14/21 21:43 Dose: 10 ml Sodium Chloride (Sodium Chloride 0.9% 10 Ml Flush Syringe) 10 ml IV PRN PRN PRN Reason: LINE FLUSH Exam - Vital Signs Vital signs: Vital Signs Temp Pulse Resp BP Pulse Ox 98.3 F 98 H 17 106/66 98 12/14/21 11:00 12/14/21 11:00 12/14/21 11:00 12/14/21 11:00 12/14/21 11:00 Results - Lab Results 12/15/21 04:24 12/15/21 04:26 Most recent lab results Calcium 9.6 mg/dL (8.4-10.2) 12/15/21 04:26
[2021-12-15] MEDS ORDERED: NON-FORMULARY EACH (Ferric Citrate (Nf) 210 MG Tablet) PO SCH (10:00)
--- NOTE | 2021-12-15 10:28 | Progress Note ---
<MICHELE PARSONS - Last Filed: 12/15/21 18:05> Assessment and Plan Assessment and plan: This is a 36-year-old female with known past medical history of ESRD on HD(M,W,F), Obesity, DM complicated by Peripheral Neuropathy, PVD, bilateral toes amputation, and recent LLE thrombectomy with stent placement admitted for acute limb ischemia of the left lower extremity s/p EKOS thrombolysis catheter placement. Hospital Course to Date: 12/15: Remains on thrombolytic therapy, TPA and heparin, via EKOS catheter. Patient still on severe pain from LLE, Q1hr PRN pain medication ordered. LLE is cold to touch with no palpable pulses. Plan to take patient's back to the [facility] today for EKOS removal and further vascular intervention. Emergent HD overnight due to hyperkalemia with ECG changes, 1L removed. Assessment and Plan #Acute Limb Ischemia of Left Lower Extremity #Arterial Occlusion #Diabetic Neuropathy #Peripheral Vascular Disease(PVD) - H/o recent LLE thrombectomy with stent placement - Presented with LLE pain and coldness - Arterial ultrasound demonstrates popliteal and infrapopliteal arterial occlusion. - Vascular Surgery consulted, appreciate recommendations - 12/14 s/p EKOS thrombolysis catheter placement in the left popliteal artery - On TPA and Heparin via EKOS - Plan to go back to [facility] plant lab[facility] today for EKOS removal and further vascular intervention - Per vascular Surgery- post revascularization, patient will need to be on antiplatelet therapy and anticoagulation for life, most likely Plavix and Eliquis. #End Stage Renal Disease(ESRD) on HD #Hyperkalemia - Nephrology on consult, appreciated recommendation - Emergent HD overnight due to high K with ECG changes - Continue HD per Nephro - Strict intake and output - Avoid nephrotoxic medications; Renally dose medications - Monitor and replace electrolytes as needed #Uncontrolled DM - Continue SSI - Lantus added Qhs - Avoid Hypoglycemia #Acute Pain - most likely from limb ischemia - Continue PRN Analgesia for pain control - Early ambulation/activity when okayed by Vascular Surgery #GI/DVT Prophylaxis - PPI- Protonix - On thrombolytic therapy, TPA and heparin, via EKOS catheter #Advance Care Planning - Disease education conducted, care plan discussed, diagnoses discussed, prognosis discussed. Patient acknowledges understanding and agreement with care plan The high probability of a clinically significant, sudden or life threatening deterioration of the [multiple] system(s) required my full and direct attention, intervention and personal management. The aggregate critical care time was [60] minutes. This time is in addition to time spent performing reported procedures but includes the following: [x] Data Review and interpretation [x] Patient assessment and monitoring of vital signs [x] Documentation [x] Medication orders and management Disposition Plan: ICU Total Time Spent with Patient (Minutes): 60 History Interval history: Patient seen and examined at the bedside. Drowsy but fully AAO, on 2L NC. Complaint of severe pain in the LLE, Q1hr PRN pain regimen administered. EKOS cath present in the right groin, no complications noted. palpable pedal pulse noted on RLE, LLE is cold to touch and no pulses appreciated at this time. Emergent HD overnight due to hyperkalemia with ECG changes, 1L removed Hospitalist Physical - Constitutional Vitals: Temp Pulse Resp BP Pulse Ox 98.9 F 111 H 16 138/57 94 12/15/21 08:00 12/15/21 10:00 12/15/21 10:00 12/15/21 10:00 12/15/21 10:00 General appearance: Present: mild distress, obese - EENT Eyes: Present: PERRL ENT: hearing intact - Neck Neck: Present: normal ROM - Respiratory Respiratory effort: normal Respiratory: bilateral: diminished - Cardiovascular Rhythm: regular Heart Sounds: Present: S1 & S2 - Extremities Extremities: abnormal (LLE ischemia. LLE cold to touch with no palpable pulses) Peripheral Pulses: abnormal (LLE ischemia. LLE cold to touch with no palpable pulses) - Abdominal General gastrointestinal: soft, non-distended, normal bowel sounds - Integumentary Integumentary: Present: warm, dry - Psychiatric Psychiatric: cooperative, depressed - Neurologic Neurologic: moves all extremities - Allied Health Allied health notes reviewed: nursing Results - Labs CBC & Chem 7: 12/15/21 10:27 12/15/21 10:27 Labs: Laboratory Last Values WBC 9.9 K/mm3 (4.5-11.0) 12/15/21 04:24 RBC 6.14 M/mm3 (3.65-5.03) H 12/15/21 04:24 Hgb 16.4 gm/dl (10.1-14.3) H 12/15/21 04:24 Hct 54.0 % (30.3-42.9) H 12/15/21 04:24 MCV 88 fl (79-97) 12/15/21 04:24 MCH 27 pg (28-32) L 12/15/21 04:24 MCHC 30 % (30-34) 12/15/21 04:24 RDW 20.8 % (13.2-15.2) H 12/15/21 04:24 Plt Count 234 K/mm3 (140-440) 12/15/21 04:24 Lymph % (Auto) 7.6 % (13.4-35.0) L 12/15/21 04:24 [place] % (Auto) 4.3 % (0.0-7.3) 12/15/21 04:24 Eos % (Auto) 0.0 % (0.0-4.3) 12/15/21 04:24 Baso % (Auto) 0.1 % (0.0-1.8) 12/15/21 04:24 Lymph # (Auto) 0.8 K/mm3 (1.2-5.4) L 12/15/21 04:24 [place] # (Auto) 0.4 K/mm3 (0.0-0.8) 12/15/21 04:24 Eos # (Auto) 0.0 K/mm3 (0.0-0.4) 12/15/21 04:24 Baso # (Auto) 0.0 K/mm3 (0.0-0.1) 12/15/21 04:24 Add Manual Diff Complete 12/14/21 23:33 Total Counted 100 12/14/21 23:33 Seg Neutrophils % 88.0 % (40.0-70.0) H 12/15/21 04:24 Seg Neuts % (Manual) 97.0 % (40.0-70.0) H 12/14/21 23:33 Band Neutrophils % 0 % 12/14/21 23:33 Lymphocytes % (Manual) 3.0 % (13.4-35.0) L 12/14/21 23:33 Reactive Lymphs % (Man) 0 % 12/14/21 23:33 Monocytes % (Manual) 0 % (0.0-7.3) 12/14/21 23:33 Eosinophils % (Manual) 0 % (0.0-4.3) 12/14/21 23:33 Basophils % (Manual) 0 % (0.0-1.8) 12/14/21 23:33 Metamyelocytes % 0 % 12/14/21 23:33 Myelocytes % 0 % 12/14/21 23:33 Promyelocytes % 0 % 12/14/21 23:33 Blast Cells % 0 % 12/14/21 23:33 Nucleated RBC % Not Reportable 12/14/21 23:33 Seg Neutrophils # 8.7 K/mm3 (1.8-7.7) H 12/15/21 04:24 Seg Neutrophils # Man 8.1 K/mm3 (1.8-7.7) H 12/14/21 23:33 Band Neutrophils # 0.0 K/mm3 12/14/21 23:33 Lymphocytes # (Manual) 0.2 K/mm3 (1.2-5.4) L 12/14/21 23:33 Abs React Lymphs (Man) 0.0 K/mm3 12/14/21 23:33 Monocytes # (Manual) 0.0 K/mm3 (0.0-0.8) 12/14/21 23:33 Eosinophils # (Manual) 0.0 K/mm3 (0.0-0.4) 12/14/21 23:33 Basophils # (Manual) 0.0 K/mm3 (0.0-0.1) 12/14/21 23:33 Metamyelocytes # 0.0 K/mm3 12/14/21 23:33 Myelocytes # 0.0 K/mm3 12/14/21 23:33 Promyelocytes # 0.0 K/mm3 12/14/21 23:33 Blast Cells # 0.0 K/mm3 12/14/21 23:33 WBC Morphology Not Reportable 12/14/21 23:33 Hypersegmented Neuts Not Reportable 12/14/21 23:33 Hyposegmented Neuts Not Reportable 12/14/21 23:33 Hypogranular Neuts Not Reportable 12/14/21 23:33 Smudge Cells Not Reportable 12/14/21 23:33 Toxic Granulation Not Reportable 12/14/21 23:33 Toxic Vacuolation Not Reportable 12/14/21 23:33 Dohle Bodies Not Reportable 12/14/21 23:33 Pelger-Huet Anomaly Not Reportable 12/14/21 23:33 Ruben Rods Not Reportable 12/14/21 23:33 Platelet Estimate Consistent w auto 12/14/21 23:33 Clumped Platelets Not Reportable 12/14/21 23:33 Plt Clumps, EDTA Not Reportable 12/14/21 23:33 Large Platelets Not Reportable 12/14/21 23:33 Giant Platelets Not Reportable 12/14/21 23:33 Platelet Satelliting Not Reportable 12/14/21 23:33 Plt Morphology Comment Not Reportable 12/14/21 23:33 RBC Morphology Not Reportable 12/14/21 23:33 Dimorphic RBCs Not Reportable 12/14/21 23:33 Polychromasia Not Reportable 12/14/21 23:33 Hypochromasia Not Reportable 12/14/21 23:33 Poikilocytosis Not Reportable 12/14/21 23:33 Anisocytosis 1+ 12/14/21 23:33 Microcytosis Not Reportable 12/14/21 23:33 Macrocytosis Not Reportable 12/14/21 23:33 Spherocytes Not Reportable 12/14/21 23:33 Pappenheimer Bodies Not Reportable 12/14/21 23:33 Sickle Cells Not Reportable 12/14/21 23:33 Target Cells Not Reportable 12/14/21 23:33 Tear Drop Cells Not Reportable 12/14/21 23:33 Ovalocytes Not Reportable 12/14/21 23:33 Helmet Cells Not Reportable 12/14/21 23:33 [place] Bodies Not Reportable 12/14/21 23:33 [place] Rings Not Reportable 12/14/21 23:33 Alondra Cells Not Reportable 12/14/21 23:33 Bite Cells Not Reportable 12/14/21 23:33 Crenated Cell Not Reportable 12/14/21 23:33 Elliptocytes Not Reportable 12/14/21 23:33 Acanthocytes (Spur) Not Reportable 12/14/21 23:33 Rouleaux Not Reportable 12/14/21 23:33 Hemoglobin C Crystals Not Reportable 12/14/21 23:33 Schistocytes Not Reportable 12/14/21 23:33 Malaria parasites Not Reportable 12/14/21 23:33 Rojas Bodies Not Reportable 12/14/21 23:33 Hem Pathologist Commnt No 12/14/21 23:33 PT 15.9 Sec. (12.2-14.9) H 12/14/21 16:50 INR 1.14 (0.87-1.13) H 12/14/21 16:50 APTT > 240.0 Sec. (24.2-36.6) H* 12/14/21 16:50 Fibrinogen 459 mg/dl (211-480) 12/15/21 04:24 Heparin Anti-Xa Level 0.11 U.I./ml (0.3-0.7) L 12/15/21 04:24 Sodium 135 mmol/L (137-145) L 12/15/21 04:26 Potassium 5.5 mmol/L (3.6-5.0) H D 12/15/21 04:26 Chloride 92.1 mmol/L (98-107) L 12/15/21 04:26 Carbon Dioxide 20 mmol/L (22-30) L 12/15/21 04:26 Anion Gap 28 mmol/L 12/15/21 04:26 BUN 40 mg/dL (7-17) H 12/15/21 04:26 Creatinine 9.0 mg/dL (0.6-1.2) H 12/15/21 04:26 Estimated GFR 6 ml/min 12/15/21 04:26 BUN/Creatinine Ratio 4 % 12/15/21 04:26 Glucose 273 mg/dL (65-100) H 12/15/21 04:26 POC Glucose 229 mg/dL (70-105) H 12/15/21 06:31 Calcium 9.6 mg/dL (8.4-10.2) 12/15/21 04:26 Total Bilirubin 0.30 mg/dL (0.1-1.2) 12/15/21 04:26 AST 11 units/L (5-40) 12/15/21 04:26 ALT 9 units/L (7-56) 12/15/21 04:26 Alkaline Phosphatase 103 units/L (35-129) 12/15/21 04:26 Total Protein 8.9 g/dL (6.3-8.2) H 12/15/21 04:26 Albumin 4.4 g/dL (3.9-5) 12/15/21 04:26 Albumin/Globulin Ratio 1.0 % 12/15/21 04:26 Hepatitis A IgM Ab Non-reactive (NonReactive) 12/15/21 04:26 Hep Bs Antigen Non-reactive (Negative) 12/15/21 04:26 Hep B Core IgM Ab Non-reactive (NonReactive) 12/15/21 04:26 Hepatitis C Antibody Non-reactive (NonReactive) 12/15/21 04:26 Blood Type O POSITIVE 12/14/21 15:00 Antibody Screen Negative 12/14/21 15:00 Active Medications - Current Medications Current Medications: Generic Name Dose Route Start Last Admin Trade Name Freq PRN Reason Stop Dose Admin Acetaminophen 650 mg 12/14/21 13:07 Acetaminophen 325 Mg Tab PO Q4H PRN Fever >100.5/MIJARES Hydrocodone Bitart/Acetaminophen 1 each 12/14/21 17:35 Hydrocodone/Acetaminophen 5-325 Mg Tab PO Q4H PRN Pain, Mild (1-3) Hydrocodone Bitart/Acetaminophen 2 each 12/14/21 17:37 12/14/21 18:51 Hydrocodone/Acetaminophen 5-325 Mg Tab PO 2 each Q4H PRN Administration Pain, Moderate (4-6) Albuterol 2.5 mg 12/14/21 13:07 Albuterol 2.5 Mg/3 Ml Nebu IH Q4HRT PRN Shortness Of Breath Dextrose 50 ml 12/14/21 13:07 Dextrose 50% In Water (25gm) 50 Ml Syringe IV Q30MIN PRN Hypoglycemia Protocol Hydromorphone HCl 0.5 mg 12/14/21 22:16 12/15/21 10:21 Hydromorphone 1 Mg/1 Ml Inj IV 0.5 mg Q1H PRN Administration Pain , Severe (7-10) Sodium Chloride 1,000 mls @ 75 mls/hr 12/14/21 13:15 Nacl 0.9% 1000 Ml IV DIRECT CHARLA Sodium Chloride 1,000 mls @ 30 mls/hr 12/14/21 17:00 Nacl 0.9% 1000 Ml IV DIRECT CHARLA Alteplase, Recombinant 20 mg/ 500 mls @ 12.5 mls/hr 12/14/21 17:05 Sodium Chloride EKOSDLUMEN 12/16/21 09:04 DIRECT STA Sodium Chloride 1,000 mls @ 30 mls/hr 12/14/21 17:00 Nacl 0.9% 1000 Ml SHEATH DIRECT CHARLA Sodium Chloride 1,000 mls @ 35 mls/hr 12/14/21 17:00 Nacl 0.9% 1000 Ml EKOSCLUMEN DIRECT CHARLA Heparin Sodium/Sodium Chloride 25,000 unit in 500 mls @ 10 mls/hr 12/14/21 17:00 Heparin/ 0.45% Nacl-25,000 Unit/500 Ml SHEATH DIRECT CHARLA Protocol 500 UNITS/HR Sodium Chloride 100 mls @ 999 mls/hr 12/15/21 02:01 Nacl 0.9% IV CHELSEA PRN Hypotension Insulin Human Lispro 0 unit 12/14/21 15:00 12/15/21 06:36 Insulin Lispro 100 Unit/Ml SUB-Q 4 unit Q6HR CHARLA Administration Protocol Lorazepam 1 mg 12/14/21 22:16 12/15/21 02:41 Lorazepam 2 Mg/Ml Vial IV 1 mg Q4H PRN Administration Agitation Midodrine 10 mg 12/14/21 17:00 12/15/21 08:21 Midodrine 10 Mg Tab PO Not Given TID@0800,1200,1600 [facility] Miscellaneous Medication 210 mg 12/15/21 10:00 Ferric Citrate (Nf) PO QDAY CHARLA Ondansetron HCl 4 mg 12/14/21 13:07 Ondansetron 4 Mg/2 Ml Inj IV Q8H PRN Nausea And Vomiting Pantoprazole Sodium 40 mg 12/15/21 10:00 Pantoprazole 40 Mg Tab PO QDAY CHARLA Sevelamer Carbonate 800 mg 12/14/21 17:00 12/15/21 07:56 Sevelamer Carbonate 800 Mg Tab PO Not Given TIDWM CHARLA Sodium Chloride 10 ml 12/14/21 22:00 12/14/21 21:43 Sodium Chloride 0.9% 10 Ml Flush Syringe IV 10 ml BID CHARLA Administration Sodium Chloride 10 ml 12/14/21 14:16 Sodium Chloride 0.9% 10 Ml Flush Syringe IV PRN PRN LINE FLUSH <RAMONE RENDON - Last Filed: 12/16/21 07:09> Assessment and Plan Assessment and plan: I saw and evaluated the patient. I agree with the findings and the plan of care as documented in the Nurse Practitioner's~note, with the following corrections and additions. Hospitalist Physical - Constitutional Vitals: Temp Pulse Resp BP Pulse Ox 97.5 F L 95 H 13 102/54 100 12/16/21 04:00 12/16/21 06:28 12/16/21 06:15 12/16/21 06:15 12/16/21 06:29 Results - Labs CBC & Chem 7: 12/16/21 04:19 12/16/21 04:19 Labs: Laboratory Last Values WBC 8.2 K/mm3 (4.5-11.0) 12/16/21 04:19 RBC 5.29 M/mm3 (3.65-5.03) H 12/16/21 04:19 Hgb 14.8 gm/dl (10.1-14.3) H 12/16/21 04:19 Hct 46.4 % (30.3-42.9) H 12/16/21 04:19 MCV 88 fl (79-97) 12/16/21 04:19 MCH 28 pg (28-32) 12/16/21 04:19 MCHC 32 % (30-34) 12/16/21 04:19 RDW 20.5 % (13.2-15.2) H 12/16/21 04:19 Plt Count 175 K/mm3 (140-440) 12/16/21 04:19 Lymph % (Auto) 12.9 % (13.4-35.0) L 12/15/21 10:27 [place] % (Auto) 11.5 % (0.0-7.3) H 12/15/21 10:27 Eos % (Auto) 0.0 % (0.0-4.3) 12/15/21 10:27 Baso % (Auto) 0.2 % (0.0-1.8) 12/15/21 10:27 Lymph # (Auto) 1.0 K/mm3 (1.2-5.4) L 12/15/21 10:27 [place] # (Auto) 0.9 K/mm3 (0.0-0.8) H 12/15/21 10:27 Eos # (Auto) 0.0 K/mm3 (0.0-0.4) 12/15/21 10:27 Baso # (Auto) 0.0 K/mm3 (0.0-0.1) 12/15/21 10:27 Add Manual Diff Complete 12/14/21 23:33 Total Counted 100 12/14/21 23:33 Seg Neutrophils % 75.4 % (40.0-70.0) H 12/15/21 10:27 Seg Neuts % (Manual) 97.0 % (40.0-70.0) H 12/14/21 23:33 Band Neutrophils % 0 % 12/14/21 23:33 Lymphocytes % (Manual) 3.0 % (13.4-35.0) L 12/14/21 23:33 Reactive Lymphs % (Man) 0 % 12/14/21 23:33 Monocytes % (Manual) 0 % (0.0-7.3) 12/14/21 23: Eosinophils % (Manual) 0 % (0.0-4.3) 12/14/21 23: Basophils % (Manual) 0 % (0.0-1.8) 12/14/21 23: Metamyelocytes % 0 % 12/14/21 23:33 Myelocytes % 0 % 12/14/21 23: Promyelocytes % 0 % 12/14/21 23:33 Blast Cells % 0 % 12/14/21 23:33 Nucleated RBC % Not Reportable 12/14/21 23:33 Seg Neutrophils # 5.9 K/mm3 (1.8-7.7) 12/15/21 10:27 Seg Neutrophils # Man 8.1 K/mm3 (1.8-7.7) H 12/14/21 23:33 Band Neutrophils # 0.0 K/mm3 12/14/21 23:33 Lymphocytes # (Manual) 0.2 K/mm3 (1.2-5.4) L 12/14/21 23:33 Abs React Lymphs (Man) 0.0 K/mm3 12/14/21 23:33 Monocytes # (Manual) 0.0 K/mm3 (0.0-0.8) 12/14/21 23:33 Eosinophils # (Manual) 0.0 K/mm3 (0.0-0.4) 12/14/21 23: Basophils # (Manual) 0.0 K/mm3 (0.0-0.1) 12/14/21 23:33 Metamyelocytes # 0.0 K/mm3 12/14/21 23:33 Myelocytes # 0.0 K/mm3 12/14/21 23:33 Promyelocytes # 0.0 K/mm3 12/14/21 23:33 Blast Cells # 0.0 K/mm3 12/14/21 23:33 WBC Morphology Not Reportable 12/14/21 23:33 Hypersegmented Neuts Not Reportable 12/14/21 23:33 Hyposegmented Neuts Not Reportable 12/14/21 23:33 Hypogranular Neuts Not Reportable 12/14/21 23:33 Smudge Cells Not Reportable 12/14/21 23:33 Toxic Granulation Not Reportable 12/14/21 23:33 Toxic Vacuolation Not Reportable 12/14/21 23:33 Dohle Bodies Not Reportable 12/14/21 23:33 Pelger-Huet Anomaly Not Reportable 12/14/21 23:33 Ruben Rods Not Reportable 12/14/21 23:33 Platelet Estimate Consistent w auto 12/14/21 23:33 Clumped Platelets Not Reportable 12/14/21 23:33 Plt Clumps, EDTA Not Reportable 12/14/21 23:33 Large Platelets Not Reportable 12/14/21 23:33 Giant Platelets Not Reportable 12/14/21 23:33 Platelet Satelliting Not Reportable 12/14/21 23:33 Plt Morphology Comment Not Reportable 12/14/21 23:33 RBC Morphology Not Reportable 12/14/21 23:33 Dimorphic RBCs Not Reportable 12/14/21 23:33 Polychromasia Not Reportable 12/14/21 23:33 Hypochromasia Not Reportable 12/14/21 23:33 Poikilocytosis Not Reportable 12/14/21 23:33 Anisocytosis 1+ 12/14/21 23:33 Microcytosis Not Reportable 12/14/21 23:33 Macrocytosis Not Reportable 12/14/21 23:33 Spherocytes Not Reportable 12/14/21 23:33 Pappenheimer Bodies Not Reportable 12/14/21 23:33 Sickle Cells Not Reportable 12/14/21 23:33 Target Cells Not Reportable 12/14/21 23:33 Tear Drop Cells Not Reportable 12/14/21 23:33 Ovalocytes Not Reportable 12/14/21 23:33 Helmet Cells Not Reportable 12/14/21 23:33 [place] Bodies Not Reportable 12/14/21 23:33 [place] Rings Not Reportable 12/14/21 23:33 [place] Cells Not Reportable 12/14/21 23:33 Bite Cells Not Reportable 12/14/21 23:33 Crenated Cell Not Reportable 12/14/21 23:33 Elliptocytes Not Reportable 12/14/21 23:33 Acanthocytes (Spur) Not Reportable 12/14/21 23:33 Rouleaux Not Reportable 12/14/21 23:33 Hemoglobin C Crystals Not Reportable 12/14/21 23:33 Schistocytes Not Reportable 12/14/21 23:33 Malaria parasites Not Reportable 12/14/21 23:33 Rojas Bodies Not Reportable 12/14/21 23:33 Hem Pathologist Commnt No 12/14/21 23:33 PT 15.9 Sec. (12.2-14.9) H 12/14/21 16:50 INR 1.14 (0.87-1.13) H 12/14/21 16:50 APTT > 240.0 Sec. (24.2-36.6) H* 12/14/21 16:50 Fibrinogen 375 mg/dl (211-480) 12/15/21 10:27 Heparin Anti-Xa Level 0.10 U.I./ml (0.3-0.7) L 12/15/21 10:27 Sodium 136 mmol/L (137-145) L 12/16/21 04:19 Potassium 6.4 mmol/L (3.6-5.0) H* 12/16/21 04:19 Chloride 92.6 mmol/L (98-107) L 12/16/21 04:19 Carbon Dioxide 22 mmol/L (22-30) 12/16/21 04:19 Anion Gap 28 mmol/L 12/16/21 04:19 BUN 63 mg/dL (7-17) H 12/16/21 04:19 Creatinine 13.0 mg/dL (0.6-1.2) H 12/16/21 04:19 Estimated GFR 4 ml/min 12/16/21 04:19 BUN/Creatinine Ratio 5 % 12/16/21 04:19 Glucose 132 mg/dL (65-100) H 12/16/21 04:19 POC Glucose 143 mg/dL (70-105) H 12/16/21 05:27 Calcium 8.5 mg/dL (8.4-10.2) 12/16/21 04:19 Phosphorus 8.90 mg/dL (2.5-4.5) H 12/16/21 04:19 Magnesium 2.40 mg/dL (1.7-2.3) H 12/16/21 04:19 Total Bilirubin 0.30 mg/dL (0.1-1.2) 12/15/21 04:26 AST 11 units/L (5-40) 12/15/21 04:26 ALT 9 units/L (7-56) 12/15/21 04:26 Alkaline Phosphatase 103 units/L (35-129) 12/15/21 04:26 Total Protein 8.9 g/dL (6.3-8.2) H 12/15/21 04:26 Albumin 4.4 g/dL (3.9-5) 12/15/21 04:26 Albumin/Globulin Ratio 1.0 % 12/15/21 04:26 Hepatitis A IgM Ab Non-reactive (NonReactive) 12/15/21 04:26 Hep Bs Antigen Non-reactive (Negative) 12/15/21 04:26 Hep B Core IgM Ab Non-reactive (NonReactive) 12/15/21 04:26 Hepatitis C Antibody Non-reactive (NonReactive) 12/15/21 04:26 Blood Type O POSITIVE 12/14/21 15:00 Antibody Screen Negative 12/14/21 15:00 Pichardo/IV: Voiding Method Incontinent Active Medications - Current Medications Current Medications: Generic Name Dose Route Start Last Admin Trade Name Freq PRN Reason Stop Dose Admin Acetaminophen 650 mg 12/14/21 13:07 Acetaminophen 325 Mg Tab PO Q4H PRN Fever >100.5/MIJARES Hydrocodone Bitart/Acetaminophen 1 each 12/14/21 17:35 Hydrocodone/Acetaminophen 5-325 Mg Tab PO Q4H PRN Pain, Mild (1-3) Hydrocodone Bitart/Acetaminophen 2 each 12/14/21 17:37 12/16/21 02:28 Hydrocodone/Acetaminophen 5-325 Mg Tab PO 2 each Q4H PRN Administration Pain, Moderate (4-6) Albuterol 2.5 mg 12/14/21 13:07 Albuterol 2.5 Mg/3 Ml Nebu IH Q4HRT PRN Shortness Of Breath Apixaban 5 mg 12/15/21 17:00 12/15/21 21:25 Apixaban 5 Mg Tab PO 5 mg Q12HR CHARLA Administration Protocol Clopidogrel Bisulfate 75 mg 12/16/21 10:00 Clopidogrel 75 Mg Tab PO QDAY [facility] Dextrose 50 ml 12/14/21 13:07 Dextrose 50% In Water (25gm) 50 Ml Syringe IV Q30MIN PRN Hypoglycemia Protocol Gabapentin 100 mg 12/15/21 17:00 12/15/21 16:36 Gabapentin 100 Mg Cap PO 100 mg DAILY [facility] Administration Hydromorphone HCl 0.5 mg 12/14/21 22:16 12/15/21 15:56 Hydromorphone 1 Mg/1 Ml Inj IV 0.5 mg Q1H PRN Administration Pain , Severe (7-10) Sodium Chloride 1,000 mls @ 75 mls/hr 12/14/21 13:15 Nacl 0.9% 1000 Ml IV DIRECT CHARLA Sodium Chloride 100 mls @ 999 mls/hr 12/15/21 02:01 Nacl 0.9% IV CHELSEA PRN Hypotension Insulin Glargine 15 units 12/15/21 22:00 12/15/21 21:27 Insulin Glargine 100 Units/Ml SUB-Q 15 units QHS CHARLA Administration Insulin Human Lispro 0 unit 12/14/21 15:00 12/16/21 06:32 Insulin Lispro 100 Unit/Ml SUB-Q Not Given Q6HR [facility] Protocol Lorazepam 1 mg 12/14/21 22:16 12/15/21 17:19 Lorazepam 2 Mg/Ml Vial IV 1 mg Q4H PRN Administration Agitation Midodrine 10 mg 12/14/21 17:00 12/15/21 16:09 Midodrine 10 Mg Tab PO Not Given TID@0800,1200,1600 [facility] Miscellaneous Medication 210 mg 12/15/21 10:00 Ferric Citrate (Nf) PO QDAY [facility] Ondansetron HCl 4 mg 12/14/21 13:07 Ondansetron 4 Mg/2 Ml Inj IV Q8H PRN Nausea And Vomiting Pantoprazole Sodium 40 mg 12/15/21 10:00 12/15/21 10:56 Pantoprazole 40 Mg Tab PO Not Given QDAY CHARLA Sevelamer Carbonate 800 mg 12/14/21 17:00 12/15/21 16:39 Sevelamer Carbonate 800 Mg Tab PO Not Given TIDWM CHARLA Sodium Chloride 10 ml 12/14/21 22:00 12/15/21 21:27 Sodium Chloride 0.9% 10 Ml Flush Syringe IV 10 ml BID CHARLA Administration Sodium Chloride 10 ml 12/14/21 14:16 Sodium Chloride 0.9% 10 Ml Flush Syringe IV PRN PRN LINE FLUSH
--- NOTE | 2021-12-15 10:55 | Event Note ---
Date: 12/15/21 Patient complaining of severe pain to her left calf and lower thigh. She states that the pain just recently worsened. She never had complete relief of her pain. She continue to have motor of the ankle and sensation in the calf. The foot is chronically numb. Calf is cool to touch while the thigh remains warm. Will take her down to the cathlab within the hour for removal of the EKOS Catheter and intervention of the left lower extremity, as needed. Discussed this with the patient who expressed understanding and agrees.
[2021-12-15] MEDS: PANTOPRAZOLE 40 MG TAB PO SCH (10:56)
[2021-12-15 11:10] LABS: Basophils % (Auto) 0.2 % (0.0-1.8); Hematocrit 50.3 % (30.3-42.9); Hemoglobin 15.9 gm/dl (10.1-14.3); Lymphocytes % (Auto) 12.9 % (13.4-35.0); Mean Corpuscular HGB Conc 32 % (30-34); Mean Corpuscular Volume 88 fl (79-97); Monocytes # (Auto) 0.9 K/mm3 (0.0-0.8); Monocytes % (Auto) 11.5 % (0.0-7.3); Platelet Count 194 K/mm3 (140-440); Red Cell Distribution Width 20.9 % (13.2-15.2)
[2021-12-15 11:25] LABS: Calcium 9.2 mg/dL (8.4-10.2)
[2021-12-15] MEDS ORDERED: HYDROCORTISONE SOD SUCC 100 MG/2 ML VIAL ONE (12:14)
[2021-12-15] MEDS ORDERED: diphenhydrAMINE 50 MG/ML VIAL ONE (12:14)
[2021-12-15] MEDS ORDERED: SODIUM CHLORIDE 0.9% 500 ML 500 ML ONE (12:20)
[2021-12-15] MEDS ORDERED: HEPARIN/NS 5000 UNIT/500ML 500 ML IR ONE ×2 (12:28→12:29)
[2021-12-15] MEDS ORDERED: LIDOCAINE (1%) 10 MG/1 ML VIAL 20 ML MDV ONE (12:28)
[2021-12-15] MEDS ORDERED: fentaNYL 100 MCG/2 ML INJ ONE (12:35)
[2021-12-15] MEDS: diphenhydrAMINE 50 MG/ML VIAL ONE (12:40)
[2021-12-15] MEDS: fentaNYL 100 MCG/2 ML INJ ONE ×2 (12:45→13:39)
[2021-12-15] MEDS: MIDAZOLAM 2 MG/2 ML INJ ONE ×2 (12:46→13:39)
[2021-12-15] MEDS ORDERED: ALTEPLASE 2 MG INJ ONE (12:51)
[2021-12-15] MEDS: ALTEPLASE 2 MG INJ ONE (12:56)
[2021-12-15] MEDS ORDERED: HEPARIN 10,000 UNITS/10 ML VIAL ONE (13:00)
[2021-12-15] MEDS: HEPARIN 10,000 UNITS/10 ML VIAL ONE (13:03)
[2021-12-15] MEDS ORDERED: NITROGLYCERIN SYRINGE 3 ML ONE (13:13)
--- NOTE | 2021-12-15 13:46 | Operative Report ---
Operative Report Operative Report: Date of Procedure: 12/15/2021 Pre-operative Diagnosis: Peripheral Vascular Disease with Acute Left Lower Extre mity Ischemia Status Post Thrombolysis Post-operative Diagnosis: Same Procedure(s): 1. Removal of Left Lower Extremity EKOS Thrombolysis Catheter 2. Diagnostic Left Lower Extremity Angiogram 3. Percutaneous Pharmacomechanical Thrombectomy of Left Popliteal Artery with 4 mg of TPA and Penumbra Indigo Lightening CAT 7 Aspiration Catheter 4. Angioplasty of Left SFA and Popliteal Artery with 5.0 x 200 Angiosculpt Balloon 5. Closure of Right Femoral Arteriotomy with Perclose ProStyle Closure Device 6. Radiologic Supervision with Interpretation 7. Monitored Moderate Sedation (Total Anesthesia Time: 50 Minutes) Surgeon: Parish Inman M.D. Ground Water Technician: Vandana Anesthesia: Local/Monitored Moderate Sedation Total Anesthesia Time: 50 Minutes EBL: Minimal Counts: Correct Complications: None Condition: Stable Specimen: None Indication: The patient is a 36-year-old female with a history of peripheral vascular disease who presented with complaints of severe left lower extremity pain and coolness. She was found to have occlusion of a stent within the popliteal artery and underwent thrombolysis overnight. She is in need of return to the [facility] for removal of the catheter and any needed intervention to restore flow to her left lower extremity. She was given the risk, benefits, and alternative procedures and consented to the procedure. Angiographic Findings: The diagnostic angiogram revealed sluggish flow throughout the left lower extremity. There was residual thrombus within the popliteal artery in the stent as well as just distal to the stent. The posterior tibial artery and previously patent portions of the peroneal artery remained patent without evidence of distal thrombus. There did not appear to be any significant thrombus within the SFA or proximal popliteal artery. After intervention there was brisk flow of contrast through the left lower extremity with minimal residual thrombus noted within the popliteal artery. There was no evidence of distal emboli in either the peroneal or posterior tibial arteries. Description of Procedure: The patient was brought to the [facility] and laid in supine position. After timeout was performed her left groin and indwelling catheters were prepped and draped in normal sterile fashion. The ultrasound wire was removed from the EKOS Thrombolysis Catheter and a diagnostic angiogram was performed with the previo usly described findings. I systemically heparinized the patient with 5000 units of heparin IV and then advanced a vertebral catheter into the popliteal artery. I injected 4 mg of TPA and allow this to dwell for approximately 10 minutes. I then advanced the Bentson wire into the posterior tibial artery and used a Penumbra Indigo Lightening CAT 7 Aspiration Catheter to perform percutaneous mechanical thrombectomy of the popliteal artery. Follow-up angiogram revealed no residual thrombus, that was appreciated, however there was stenosis within the popliteal artery as well as some stenosis that appeared to be in the proximal SFA. I advanced a 0.014 6 mm Spider Wire into the distal popliteal artery just proximal to the tibioperoneal trunk. I then performed angioplasty of the entire SFA and popliteal artery using a 5.0 x 200 Angiosculpt Balloon which resulted in less than 15% residual stenosis within the SFA and left 20% residual stenosis in the popliteal artery with brisk flow of contrast throughout the entire left lower extremity. It appeared that there was some emboli in the proximal posterior tibial artery which was removed with aspiration through a 6 Yoruba guide catheter. The follow-up angiogram revealed brisk flow of contrast to the tibial vessels and no evidence of distal emboli. At this point I removed all wires and catheters and pulled the sheath back into the right external iliac artery. I advanced a 0.035 J-wire into the aorta and after removing the sheath used a Perclose ProStyle Closure Device to close the right femoral arteriotomy. A sterile dressing was then applied to the right groin entry site and the patient was transported back to her room in stable condition.
[2021-12-15] MEDS: GABAPENTIN 100 MG CAP PO SCH (16:36)
[2021-12-15] MEDS ORDERED: CLOPIDOGREL 300 MG TAB PO SCH (17:00)
[2021-12-15] MEDS: APIXABAN 5 MG TAB PO SCH ×2 (17:32→21:25)
--- NOTE | 2021-12-15 17:50 | Event Note ---
Date: 12/22/21 Patient complaining of left calf pain that is sharp and begins at the distal calf and extends into the foot. No complaints of proximal calf pain. The leg and foot are warm with a posterior tibial artery signal present and multi- phasic. The calf is soft with some tenderness but no evidence of compartment syndrome. Will continue to monitor however there is no indication for a left leg fasciotomy at this time.
--- NOTE | 2021-12-15 18:29 | Progress Note ---
Subjective Date of service: 12/15/21 Objective Vital Signs - 12hr 12/15/21 12/15/21 12/15/21 06:30 06:41 06:51 Temperature Pulse Rate 113 H 114 H 114 H Pulse Rate [ From Monitor] Respiratory 16 15 16 Rate Blood Pressure 121/61 121/61 129/62 O2 Sat by Pulse 100 100 100 Oximetry 12/15/21 12/15/21 12/15/21 07:00 07:11 07:21 Temperature Pulse Rate 114 H 116 H 113 H Pulse Rate [ From Monitor] Respiratory 15 19 18 Rate Blood Pressure 123/45 123/45 130/66 O2 Sat by Pulse 99 98 100 Oximetry 12/15/21 12/15/21 12/15/21 07:30 07:41 07:44 Temperature Pulse Rate 115 H 113 H Pulse Rate [ 113 H From Monitor] Respiratory 17 19 16 Rate Blood Pressure 111/68 111/68 O2 Sat by Pulse 98 98 100 Oximetry 12/15/21 12/15/21 12/15/21 07:51 07:52 07:53 Temperature 98.9 F Pulse Rate 112 H 113 H Pulse Rate [ From Monitor] Respiratory 14 Rate Blood Pressure 116/69 O2 Sat by Pulse 98 Oximetry 12/15/21 12/15/21 12/15/21 08:00 08:15 08:31 Temperature 98.9 F Pulse Rate 111 H 110 H 113 H Pulse Rate [ From Monitor] Respiratory 15 16 14 Rate Blood Pressure 135/67 142/65 128/59 O2 Sat by Pulse 97 98 99 Oximetry 12/15/21 12/15/21 12/15/21 08:44 08:45 09:01 Temperature Pulse Rate 113 H 112 H Pulse Rate [ From Monitor] Respiratory 15 14 Rate Blood Pressure 113/53 113/62 O2 Sat by Pulse 99 97 99 Oximetry 12/15/21 12/15/21 12/15/21 09:15 09:30 09:45 Temperature Pulse Rate 114 H 107 H 110 H Pulse Rate [ From Monitor] Respiratory 15 14 12 Rate Blood Pressure 123/71 143/63 135/60 O2 Sat by Pulse 99 99 95 Oximetry 12/15/21 12/15/21 12/15/21 10:00 10:15 10:31 Temperature Pulse Rate 111 H 112 H 112 H Pulse Rate [ From Monitor] Respiratory 16 13 21 Rate Blood Pressure 138/57 119/74 119/74 O2 Sat by Pulse 94 95 95 Oximetry 12/15/21 12/15/21 12/15/21 10:45 11:01 11:15 Temperature Pulse Rate 110 H 109 H 109 H Pulse Rate [ From Monitor] Respiratory 16 13 14 Rate Blood Pressure 113/76 135/84 132/90 O2 Sat by Pulse 94 99 99 Oximetry 12/15/21 12/15/21 12/15/21 11:31 11:45 12:00 Temperature 98.3 F Pulse Rate 108 H 106 H 107 H Pulse Rate [ 107 H From Monitor] Respiratory 14 18 16 Rate Blood Pressure 153/86 140/80 149/79 O2 Sat by Pulse 98 98 100 Oximetry 12/15/21 12/15/21 12/15/21 14:01 14:15 14:30 Temperature Pulse Rate 101 H 99 H 99 H Pulse Rate [ From Monitor] Respiratory 12 9 L 10 L Rate Blood Pressure 149/79 104/44 112/46 O2 Sat by Pulse 99 100 100 Oximetry 12/15/21 12/15/21 12/15/21 14:45 15:00 15:15 Temperature Pulse Rate 99 H 99 H 99 H Pulse Rate [ From Monitor] Respiratory 10 L 14 10 L Rate Blood Pressure 123/51 124/46 116/60 O2 Sat by Pulse 100 100 99 Oximetry 12/15/21 12/15/21 12/15/21 15:31 15:45 16:00 Temperature 98.1 F Pulse Rate 103 H 102 H 105 H Pulse Rate [ 105 H From Monitor] Respiratory 10 L 11 L 12 Rate Blood Pressure 132/56 138/50 O2 Sat by Pulse 98 98 100 Oximetry 12/15/21 12/15/21 12/15/21 16:01 16:15 16:30 Temperature Pulse Rate 102 H 102 H 105 H Pulse Rate [ From Monitor] Respiratory 21 16 13 Rate Blood Pressure 159/103 161/99 174/66 O2 Sat by Pulse 99 100 99 Oximetry 12/15/21 12/15/21 12/15/21 16:45 17:01 17:15 Temperature Pulse Rate 106 H 108 H 103 H Pulse Rate [ From Monitor] Respiratory 21 13 13 Rate Blood Pressure 184/90 150/91 160/92 O2 Sat by Pulse 98 95 99 Oximetry 12/15/21 12/15/21 12/15/21 17:30 17:45 18:00 Temperature Pulse Rate 108 H 108 H 105 H Pulse Rate [ From Monitor] Respiratory 12 17 14 Rate Blood Pressure 172/103 155/95 143/74 O2 Sat by Pulse 100 99 98 Oximetry CBC and BMP: 12/15/21 10:27 12/15/21 10:27 ABG, PT/INR, D-dimer: PT/INR, D-dimer PT 15.9 Sec. (12.2-14.9) H 12/14/21 16:50 INR 1.14 (0.87-1.13) H 12/14/21 16:50 Abnormal lab findings: Abnormal Labs 12/14/21 12/14/21 12/14/21 11:46 11:46 14:10 RBC 5.55 H Hgb 16.0 H Hct 48.1 H MCH RDW 20.9 H Lymph % (Auto) [place] % (Auto) 10.6 H Lymph # (Auto) [place] # (Auto) Seg Neutrophils % Seg Neuts % (Manual) Lymphocytes % (Manual) Seg Neutrophils # Seg Neutrophils # Man Lymphocytes # (Manual) PT INR APTT Fibrinogen Heparin Anti-Xa Level Sodium 135 L Potassium 7.0 H* 5.2 H D Chloride 91.4 L 92.9 L Carbon Dioxide BUN 65 H 66 H Creatinine 13.7 H 13.7 H Glucose 207 H 136 H POC Glucose Total Protein 8.6 H 12/14/21 12/14/21 12/14/21 16:02 16:50 16:50 RBC 5.13 H Hgb Hct 44.3 H MCH RDW 20.6 H Lymph % (Auto) [place] % (Auto) 11.7 H Lymph # (Auto) [place] # (Auto) Seg Neutrophils % Seg Neuts % (Manual) Lymphocytes % (Manual) Seg Neutrophils # Seg Neutrophils # Man Lymphocytes # (Manual) PT INR APTT Fibrinogen Heparin Anti-Xa Level Sodium Potassium 5.1 H Chloride 93.3 L Carbon Dioxide BUN 68 H Creatinine 14.3 H Glucose 158 H POC Glucose 54 L Total Protein 12/14/21 12/14/21 12/14/21 16:50 17:35 23:28 RBC Hgb Hct MCH RDW Lymph % (Auto) [place] % (Auto) Lymph # (Auto) [place] # (Auto) Seg Neutrophils % Seg Neuts % (Manual) Lymphocytes % (Manual) Seg Neutrophils # Seg Neutrophils # Man Lymphocytes # (Manual) PT 15.9 H INR 1.14 H APTT > 240.0 H* Fibrinogen 522 H Heparin Anti-Xa Level Sodium Potassium Chloride Carbon Dioxide BUN Creatinine Glucose POC Glucose 122 H 280 H Total Protein 12/14/21 12/14/21 12/15/21 23:33 23:33 00:09 RBC 5.90 H Hgb 16.4 H Hct 52.9 H D MCH RDW 21.2 H Lymph % (Auto) [place] % (Auto) Lymph # (Auto) [place] # (Auto) Seg Neutrophils % Seg Neuts % (Manual) 97.0 H Lymphocytes % (Manual) 3.0 L Seg Neutrophils # Seg Neutrophils # Man 8.1 H Lymphocytes # (Manual) 0.2 L PT INR APTT Fibrinogen 546 H Heparin Anti-Xa Level 0.12 L Sodium 133 L Potassium 8.1 H* D Chloride 87.7 L Carbon Dioxide 18 L BUN 82 H Creatinine 14.1 H Glucose 271 H POC Glucose Total Protein 12/15/21 12/15/21 12/15/21 04:24 04:24 04:26 RBC 6.14 H Hgb 16.4 H Hct 54.0 H MCH 27 L RDW 20.8 H Lymph % (Auto) 7.6 L [place] % (Auto) Lymph # (Auto) 0.8 L [place] # (Auto) Seg Neutrophils % 88.0 H Seg Neuts % (Manual) Lymphocytes % (Manual) Seg Neutrophils # 8.7 H Seg Neutrophils # Man Lymphocytes # (Manual) PT INR APTT Fibrinogen Heparin Anti-Xa Level 0.11 L Sodium 135 L Potassium 5.5 H D Chloride 92.1 L Carbon Dioxide 20 L BUN 40 H Creatinine 9.0 H Glucose 273 H POC Glucose Total Protein 8.9 H 12/15/21 12/15/21 12/15/21 06:31 10:27 10:27 RBC 5.70 H Hgb 15.9 H Hct 50.3 H MCH RDW 20.9 H Lymph % (Auto) 12.9 L [place] % (Auto) 11.5 H Lymph # (Auto) 1.0 L [place] # (Auto) 0.9 H Seg Neutrophils % 75.4 H Seg Neuts % (Manual) Lymphocytes % (Manual) Seg Neutrophils # Seg Neutrophils # Man Lymphocytes # (Manual) PT INR APTT Fibrinogen Heparin Anti-Xa Level 0.10 L Sodium Potassium Chloride Carbon Dioxide BUN Creatinine Glucose POC Glucose 229 H Total Protein 12/15/21 12/15/21 12/15/21 10:27 11:44 16:28 RBC Hgb Hct MCH RDW Lymph % (Auto) [place] % (Auto) Lymph # (Auto) [place] # (Auto) Seg Neutrophils % Seg Neuts % (Manual) Lymphocytes % (Manual) Seg Neutrophils # Seg Neutrophils # Man Lymphocytes # (Manual) PT INR APTT Fibrinogen Heparin Anti-Xa Level Sodium 136 L Potassium 5.9 H Chloride 93.8 L Carbon Dioxide BUN 41 H Creatinine 10.4 H Glucose 223 H POC Glucose 240 H 261 H Total Protein
[2021-12-15] MEDS: INSULIN GLARGINE 100 UNITS/ML SUB-Q SCH (21:27)
[2021-12-16] MEDS: HYDROcodone/ACETAMINOPHEN 5-325 MG TAB PO PRN ×3 (02:28→23:47)
[2021-12-16 05:16] LABS: Hematocrit 46.4 % (30.3-42.9); Hemoglobin 14.8 gm/dl (10.1-14.3); Mean Corpuscular HGB Conc 32 % (30-34); Mean Corpuscular Volume 88 fl (79-97); Platelet Count 175 K/mm3 (140-440); Red Blood Count 5.29 M/mm3 (3.65-5.03)
[2021-12-16 05:24] LABS: Red Cell Distribution Width 20.5 % (13.2-15.2)
[2021-12-16 05:44] LABS: Calcium 8.5 mg/dL (8.4-10.2)
[2021-12-16] MEDS: INSULIN LISPRO 100 UNIT/ML SUB-Q SCH ×2 (06:32)
[2021-12-16] MEDS ORDERED: SODIUM POLYSTYRENE 15 GM/60 ML ORAL LIQD PO ONE (06:39)
--- NOTE | 2021-12-16 08:36 | Progress Note ---
Subjective Date of service: 12/16/21 Objective Vital Signs - 12hr 12/15/21 12/15/21 12/15/21 20:45 21:00 21:01 Temperature 97.5 F L Pulse Rate 102 H 100 H 100 H Pulse Rate [ Bilateral Dorsalis Pedis/ Posterior] Respiratory 14 16 14 Rate Respiratory Rate [Left Leg] Blood Pressure 124/62 124/62 102/51 O2 Sat by Pulse 99 99 100 Oximetry 12/15/21 12/15/21 12/15/21 21:15 21:19 21:30 Temperature Pulse Rate 100 H 99 H 99 H Pulse Rate [ Bilateral Dorsalis Pedis/ Posterior] Respiratory 15 18 Rate Respiratory Rate [Left Leg] Blood Pressure 102/51 102/51 O2 Sat by Pulse 99 98 Oximetry 12/15/21 12/15/21 12/15/21 22:00 23:00 23:43 Temperature 97.5 F L 97.5 F L Pulse Rate 98 H 98 H 98 H Pulse Rate [ Bilateral Dorsalis Pedis/ Posterior] Respiratory 16 16 Rate Respiratory 16 Rate [Left Leg] Blood Pressure 90/40 100/48 O2 Sat by Pulse 99 99 100 Oximetry 12/16/21 12/16/21 12/16/21 00:00 01:00 01:19 Temperature 98.1 F Pulse Rate 100 H Pulse Rate [ 100 H Bilateral Dorsalis Pedis/ Posterior] Respiratory 16 13 Rate Respiratory Rate [Left Leg] Blood Pressure 90/45 102/51 O2 Sat by Pulse 97 100 Oximetry 12/16/21 12/16/21 12/16/21 01:31 01:45 02:00 Temperature Pulse Rate 99 H 98 H 99 H Pulse Rate [ Bilateral Dorsalis Pedis/ Posterior] Respiratory 14 14 12 Rate Respiratory Rate [Left Leg] Blood Pressure 102/51 102/51 80/41 O2 Sat by Pulse 100 99 100 Oximetry 12/16/21 12/16/21 12/16/21 02:15 02:28 02:30 Temperature Pulse Rate 101 H 94 H Pulse Rate [ Bilateral Dorsalis Pedis/ Posterior] Respiratory 13 19 Rate Respiratory Rate [Left Leg] Blood Pressure 80/41 O2 Sat by Pulse 99 Oximetry 12/16/21 12/16/21 12/16/21 02:31 02:45 03:00 Temperature Pulse Rate 99 H 99 H 96 H Pulse Rate [ Bilateral Dorsalis Pedis/ Posterior] Respiratory 15 25 H 14 Rate Respiratory Rate [Left Leg] Blood Pressure 103/54 103/54 101/57 O2 Sat by Pulse 98 98 99 Oximetry 12/16/21 12/16/21 12/16/21 03:15 03:28 03:31 Temperature Pulse Rate 97 H 98 H Pulse Rate [ Bilateral Dorsalis Pedis/ Posterior] Respiratory 13 16 13 Rate Respiratory Rate [Left Leg] Blood Pressure 101/57 101/57 O2 Sat by Pulse 100 100 Oximetry 12/16/21 12/16/21 12/16/21 03:45 04:00 04:15 Temperature 97.5 F L Pulse Rate 96 H 96 H 95 H Pulse Rate [ Bilateral Dorsalis Pedis/ Posterior] Respiratory 13 12 13 Rate Respiratory Rate [Left Leg] Blood Pressure 101/57 87/47 98/50 O2 Sat by Pulse 100 100 99 Oximetry 12/16/21 12/16/21 12/16/21 04:31 04:45 04:59 Temperature Pulse Rate 95 H 95 H 95 H Pulse Rate [ Bilateral Dorsalis Pedis/ Posterior] Respiratory 12 14 16 Rate Respiratory Rate [Left Leg] Blood Pressure 98/50 98/50 O2 Sat by Pulse 98 99 100 Oximetry 12/16/21 12/16/21 12/16/21 05:00 05:15 05:31 Temperature Pulse Rate 94 H 95 H 96 H Pulse Rate [ Bilateral Dorsalis Pedis/ Posterior] Respiratory 15 14 11 L Rate Respiratory Rate [Left Leg] Blood Pressure 88/40 88/40 88/40 O2 Sat by Pulse 100 98 98 Oximetry 12/16/21 12/16/21 12/16/21 05:45 05:46 06:00 Temperature Pulse Rate 96 H 96 H 95 H Pulse Rate [ Bilateral Dorsalis Pedis/ Posterior] Respiratory 12 14 Rate Respiratory Rate [Left Leg] Blood Pressure 111/50 102/54 O2 Sat by Pulse 99 100 98 Oximetry 12/16/21 12/16/21 12/16/21 06:15 06:28 06:29 Temperature Pulse Rate 95 H 95 H Pulse Rate [ Bilateral Dorsalis Pedis/ Posterior] Respiratory 13 Rate Respiratory Rate [Left Leg] Blood Pressure 102/54 O2 Sat by Pulse 99 100 Oximetry 12/16/21 08:00 Temperature 97.8 F Pulse Rate Pulse Rate [ Bilateral Dorsalis Pedis/ Posterior] Respiratory Rate Respiratory Rate [Left Leg] Blood Pressure O2 Sat by Pulse Oximetry CBC and BMP: 12/16/21 04:19 12/16/21 04:19 ABG, PT/INR, D-dimer: PT/INR, D-dimer PT 15.9 Sec. (12.2-14.9) H 12/14/21 16:50 INR 1.14 (0.87-1.13) H 12/14/21 16:50 Abnormal lab findings: Abnormal Labs 12/14/21 12/14/21 12/14/21 11:46 11:46 14:10 RBC 5.55 H Hgb 16.0 H Hct 48.1 H MCH RDW 20.9 H Lymph % (Auto) [place] % (Auto) 10.6 H Lymph # (Auto) [place] # (Auto) Seg Neutrophils % Seg Neuts % (Manual) Lymphocytes % (Manual) Seg Neutrophils # Seg Neutrophils # Man Lymphocytes # (Manual) PT INR APTT Fibrinogen Heparin Anti-Xa Level Sodium 135 L Potassium 7.0 H* 5.2 H D Chloride 91.4 L 92.9 L Carbon Dioxide BUN 65 H 66 H Creatinine 13.7 H 13.7 H Glucose 207 H 136 H POC Glucose Phosphorus Magnesium Total Protein 8.6 H 12/14/21 12/14/21 12/14/21 16:02 16:50 16:50 RBC 5.13 H Hgb Hct 44.3 H MCH RDW 20.6 H Lymph % (Auto) [place] % (Auto) 11.7 H Lymph # (Auto) [place] # (Auto) Seg Neutrophils % Seg Neuts % (Manual) Lymphocytes % (Manual) Seg Neutrophils # Seg Neutrophils # Man Lymphocytes # (Manual) PT INR APTT Fibrinogen Heparin Anti-Xa Level Sodium Potassium 5.1 H Chloride 93.3 L Carbon Dioxide BUN 68 H Creatinine 14.3 H Glucose 158 H POC Glucose 54 L Phosphorus Magnesium Total Protein 12/14/21 12/14/21 12/14/21 16:50 17:35 23:28 RBC Hgb Hct MCH RDW Lymph % (Auto) [place] % (Auto) Lymph # (Auto) [place] # (Auto) Seg Neutrophils % Seg Neuts % (Manual) Lymphocytes % (Manual) Seg Neutrophils # Seg Neutrophils # Man Lymphocytes # (Manual) PT 15.9 H INR 1.14 H APTT > 240.0 H* Fibrinogen 522 H Heparin Anti-Xa Level Sodium Potassium Chloride Carbon Dioxide BUN Creatinine Glucose POC Glucose 122 H 280 H Phosphorus Magnesium Total Protein 12/14/21 12/14/21 12/15/21 23:33 23:33 00:09 RBC 5.90 H Hgb 16.4 H Hct 52.9 H D MCH RDW 21.2 H Lymph % (Auto) [place] % (Auto) Lymph # (Auto) [place] # (Auto) Seg Neutrophils % Seg Neuts % (Manual) 97.0 H Lymphocytes % (Manual) 3.0 L Seg Neutrophils # Seg Neutrophils # Man 8.1 H Lymphocytes # (Manual) 0.2 L PT INR APTT Fibrinogen 546 H Heparin Anti-Xa Level 0.12 L Sodium 133 L Potassium 8.1 H* D Chloride 87.7 L Carbon Dioxide 18 L BUN 82 H Creatinine 14.1 H Glucose 271 H POC Glucose Phosphorus Magnesium Total Protein 12/15/21 12/15/21 12/15/21 04:24 04:24 04:26 RBC 6.14 H Hgb 16.4 H Hct 54.0 H MCH 27 L RDW 20.8 H Lymph % (Auto) 7.6 L [place] % (Auto) Lymph # (Auto) 0.8 L [place] # (Auto) Seg Neutrophils % 88.0 H Seg Neuts % (Manual) Lymphocytes % (Manual) Seg Neutrophils # 8.7 H Seg Neutrophils # Man Lymphocytes # (Manual) PT INR APTT Fibrinogen Heparin Anti-Xa Level 0.11 L Sodium 135 L Potassium 5.5 H D Chloride 92.1 L Carbon Dioxide 20 L BUN 40 H Creatinine 9.0 H Glucose 273 H POC Glucose Phosphorus Magnesium Total Protein 8.9 H 12/15/21 12/15/21 12/15/21 06:31 10:27 10:27 RBC 5.70 H Hgb 15.9 H Hct 50.3 H MCH RDW 20.9 H Lymph % (Auto) 12.9 L [place] % (Auto) 11.5 H Lymph # (Auto) 1.0 L [place] # (Auto) 0.9 H Seg Neutrophils % 75.4 H Seg Neuts % (Manual) Lymphocytes % (Manual) Seg Neutrophils # Seg Neutrophils # Man Lymphocytes # (Manual) PT INR APTT Fibrinogen Heparin Anti-Xa Level 0.10 L Sodium Potassium Chloride Carbon Dioxide BUN Creatinine Glucose POC Glucose 229 H Phosphorus Magnesium Total Protein 12/15/21 12/15/21 12/15/21 10:27 11:44 16:28 RBC Hgb Hct MCH RDW Lymph % (Auto) [place] % (Auto) Lymph # (Auto) [place] # (Auto) Seg Neutrophils % Seg Neuts % (Manual) Lymphocytes % (Manual) Seg Neutrophils # Seg Neutrophils # Man Lymphocytes # (Manual) PT INR APTT Fibrinogen Heparin Anti-Xa Level Sodium 136 L Potassium 5.9 H Chloride 93.8 L Carbon Dioxide BUN 41 H Creatinine 10.4 H Glucose 223 H POC Glucose 240 H 261 H Phosphorus Magnesium Total Protein 12/15/21 12/15/21 12/16/21 21:06 23:15 04:19 RBC 5.29 H Hgb 14.8 H Hct 46.4 H MCH RDW 20.5 H Lymph % (Auto) [place] % (Auto) Lymph # (Auto) [place] # (Auto) Seg Neutrophils % Seg Neuts % (Manual) Lymphocytes % (Manual) Seg Neutrophils # Seg Neutrophils # Man Lymphocytes # (Manual) PT INR APTT Fibrinogen Heparin Anti-Xa Level Sodium Potassium Chloride Carbon Dioxide BUN Creatinine Glucose POC Glucose 216 H 180 H Phosphorus Magnesium Total Protein 12/16/21 12/16/21 04:19 05:27 RBC Hgb Hct MCH RDW Lymph % (Auto) [place] % (Auto) Lymph # (Auto) [place] # (Auto) Seg Neutrophils % Seg Neuts % (Manual) Lymphocytes % (Manual) Seg Neutrophils # Seg Neutrophils # Man Lymphocytes # (Manual) PT INR APTT Fibrinogen Heparin Anti-Xa Level Sodium 136 L Potassium 6.4 H* Chloride 92.6 L Carbon Dioxide BUN 63 H Creatinine 13.0 H Glucose 132 H POC Glucose 143 H Phosphorus 8.90 H Magnesium 2.40 H Total Protein
[2021-12-16] MEDS ORDERED: SODIUM CHLORIDE 0.9% 100 ML IV PRN (08:44)
[2021-12-16] MEDS: PANTOPRAZOLE 40 MG TAB PO SCH (09:22)
[2021-12-16] MEDS: GABAPENTIN 100 MG CAP PO SCH (09:22)
[2021-12-16] MEDS: SEVELAMER CARBONATE 800 MG TAB PO SCH ×2 (09:22→17:48)
[2021-12-16] MEDS: APIXABAN 5 MG TAB PO SCH ×2 (09:23→21:18)
[2021-12-16] MEDS: CLOPIDOGREL 75 MG TAB PO SCH (09:23)
[2021-12-16] MEDS: MIDODRINE 10 MG TAB PO SCH ×3 (09:23→17:48)
[2021-12-16] MEDS: LORazepam 2 MG/ML VIAL IV PRN ×2 (10:08→20:03)
[2021-12-16] MEDS ORDERED: HEPARIN 10,000 UNITS/10 ML VIAL IV PRN (10:11)
--- NOTE | 2021-12-16 10:39 | Progress Note ---
<MICHELE PARSONS - Last Filed: 12/16/21 17:29> Assessment and Plan Assessment and plan: This is a 36-year-old female with known past medical history of ESRD on HD(M,W,F), Obesity, DM complicated by Peripheral Neuropathy, PVD, bilateral toes amputation, and recent LLE thrombectomy with stent placement admitted for acute limb ischemia of the left lower extremity s/p EKOS thrombolysis catheter placement. Hospital Course to Date: 12/15: Remains on thrombolytic therapy, TPA and heparin, via EKOS catheter. Patient still on severe pain from LLE, Q1hr PRN pain medication ordered. LLE is cold to touch with no palpable pulses. Plan to take patient's back to the [facility] today for EKOS removal and further vascular intervention. Emergent HD overnight due to hyperkalemia with ECG changes, 1L removed. 12/16: s/p removal of Left Lower Extremity EKOS Thrombolysis Catheter and diagnostic Left Lower Extremity Angiogram. Patient is stable this am, on 2L NC, c/p of mild pain. Continue PRN analagesia for pain control. On Eliquis and Plavix per Vascular Surgery. Patient had HD overnight, plan for emergent HD again today due to hyperkalemia this am, repeat BMP post treatment. PT/OT eval and treat ordered. Assessment and Plan #Acute Limb Ischemia of Left Lower Extremity #Arterial Occlusion #Diabetic Neuropathy #Peripheral Vascular Disease(PVD) - H/o recent LLE thrombectomy with stent placement - Presented with LLE pain and coldness - Arterial ultrasound demonstrates popliteal and infrapopliteal arterial occlusion. - Vascular Surgery consulted, appreciate recommendations - 12/14 s/p EKOS thrombolysis catheter placement in the left popliteal artery - s/p removal of Left Lower Extremity EKOS Thrombolysis Catheter and diagnostic Left Lower Extremity Angiogram - Now on Eliquis and Plavix - Per vascular Surgery- post revascularization, patient will need to be on antiplatelet therapy and anticoagulation for life. #End Stage Renal Disease(ESRD) on HD #Hyperkalemia - Nephrology on consult, appreciated recommendation - Emergent HD today again due to high K - Continue HD per Nephro - Strict intake and output - Avoid nephrotoxic medications; Renally dose medications - Monitor and replace electrolytes as needed #Uncontrolled DM - Continue SSI - Lantus added Qhs - Avoid Hypoglycemia #Acute Pain vs Neuropathic pain - most likely from limb ischemia - Gabapentin resumed - Continue PRN Analgesia for pain control - Early ambulation/activity as tolerated when okayed by Vascular Surgery - PT/OT eval and treat #GI/DVT Prophylaxis - PPI- Protonix - On Eliquis #Advance Care Planning - Disease education conducted, care plan discussed, diagnoses discussed, prognosis discussed. Patient acknowledges understanding and agreement with care plan The high probability of a clinically significant, sudden or life threatening deterioration of the [multiple] system(s) required my full and direct attention, intervention and personal management. The aggregate critical care time was [60] minutes. This time is in addition to time spent performing reported procedures but includes the following: [x] Data Review and interpretation [x] Patient assessment and monitoring of vital signs [x] Documentation [x] Medication orders and management Disposition Plan: ICU Total Time Spent with Patient (Minutes): 60 History Interval history: Patient seen and examined at the bedside. Fully AAO, on 2L NC, c/o of mild 3/10 pain from LLE. Per patient she is feeling a lot better today. LLE is tender to touch but warm, Lt. posterior tibial appreciated with a doppler. Rt. groin site is dry and intact, no complications noted. Hospitalist Physical - Constitutional Vitals: Temp Pulse Resp BP Pulse Ox 97.8 F 95 H 12 102/54 100 12/16/21 08:00 12/16/21 06:28 12/16/21 08:49 12/16/21 06:15 12/16/21 06:29 General appearance: Present: no acute distress, obese - EENT Eyes: Present: PERRL ENT: hearing intact - Neck Neck: Present: normal ROM - Respiratory Respiratory effort: normal Respiratory: bilateral: diminished - Cardiovascular Rhythm: regular Heart Sounds: Present: S1 & S2 - Extremities Extremities: abnormal (Bilateral toes amputations) Extremity abnormal: edema, tenderness (LLE), other (Bilateral toes amputations) - Peripheral Assessment Generalized Edema Type: Non-pitting Edema Degree: 2+ Capillary Refill: < 3 seconds Skin Temperature: Warm Peripheral Pulses: abnormal (LLE pulses appreciated with a doppler. palpable pulses from RLE) - Abdominal General gastrointestinal: soft, non-distended, normal bowel sounds - Integumentary Integumentary: Present: warm, dry - Psychiatric Psychiatric: appropriate mood/affect, cooperative - Neurologic Neurologic: CNII-XII intact, moves all extremities - Allied Health Allied health notes reviewed: nursing Results - Labs CBC & Chem 7: 12/16/21 04:19 12/16/21 04:19 Labs: Laboratory Last Values WBC 8.2 K/mm3 (4.5-11.0) 12/16/21 04:19 RBC 5.29 M/mm3 (3.65-5.03) H 12/16/21 04:19 Hgb 14.8 gm/dl (10.1-14.3) H 12/16/21 04:19 Hct 46.4 % (30.3-42.9) H 12/16/21 04:19 MCV 88 fl (79-97) 12/16/21 04:19 MCH 28 pg (28-32) 12/16/21 04:19 MCHC 32 % (30-34) 12/16/21 04:19 RDW 20.5 % (13.2-15.2) H 12/16/21 04:19 Plt Count 175 K/mm3 (140-440) 12/16/21 04:19 Lymph % (Auto) 12.9 % (13.4-35.0) L 12/15/21 10:27 [place] % (Auto) 11.5 % (0.0-7.3) H 12/15/21 10:27 Eos % (Auto) 0.0 % (0.0-4.3) 12/15/21 10:27 Baso % (Auto) 0.2 % (0.0-1.8) 12/15/21 10:27 Lymph # (Auto) 1.0 K/mm3 (1.2-5.4) L 12/15/21 10:27 [place] # (Auto) 0.9 K/mm3 (0.0-0.8) H 12/15/21 10:27 Eos # (Auto) 0.0 K/mm3 (0.0-0.4) 12/15/21 10:27 Baso # (Auto) 0.0 K/mm3 (0.0-0.1) 12/15/21 10:27 Add Manual Diff Complete 12/14/21 23:33 Total Counted 100 12/14/21 23:33 Seg Neutrophils % 75.4 % (40.0-70.0) H 12/15/21 10:27 Seg Neuts % (Manual) 97.0 % (40.0-70.0) H 12/14/21 23:33 Band Neutrophils % 0 % 12/14/21 23:33 Lymphocytes % (Manual) 3.0 % (13.4-35.0) L 12/14/21 23:33 Reactive Lymphs % (Man) 0 % 12/14/21 23:33 Monocytes % (Manual) 0 % (0.0-7.3) 12/14/21 23:33 Eosinophils % (Manual) 0 % (0.0-4.3) 12/14/21 23:33 Basophils % (Manual) 0 % (0.0-1.8) 12/14/21 23:33 Metamyelocytes % 0 % 12/14/21 23:33 Myelocytes % 0 % 12/14/21 23: Promyelocytes % 0 % 12/14/21 23:33 Blast Cells % 0 % 12/14/21 23:33 Nucleated RBC % Not Reportable 12/14/21 23:33 Seg Neutrophils # 5.9 K/mm3 (1.8-7.7) 12/15/21 10:27 Seg Neutrophils # Man 8.1 K/mm3 (1.8-7.7) H 12/14/21 23:33 Band Neutrophils # 0.0 K/mm3 12/14/21 23:33 Lymphocytes # (Manual) 0.2 K/mm3 (1.2-5.4) L 12/14/21 23:33 Abs React Lymphs (Man) 0.0 K/mm3 12/14/21 23:33 Monocytes # (Manual) 0.0 K/mm3 (0.0-0.8) 12/14/21 23:33 Eosinophils # (Manual) 0.0 K/mm3 (0.0-0.4) 12/14/21 23:33 Basophils # (Manual) 0.0 K/mm3 (0.0-0.1) 12/14/21 23:33 Metamyelocytes # 0.0 K/mm3 12/14/21 23:33 Myelocytes # 0.0 K/mm3 12/14/21 23:33 Promyelocytes # 0.0 K/mm3 12/14/21 23:33 Blast Cells # 0.0 K/mm3 12/14/21 23:33 WBC Morphology Not Reportable 12/14/21 23:33 Hypersegmented Neuts Not Reportable 12/14/21 23:33 Hyposegmented Neuts Not Reportable 12/14/21 23:33 Hypogranular Neuts Not Reportable 12/14/21 23:33 Smudge Cells Not Reportable 12/14/21 23:33 Toxic Granulation Not Reportable 12/14/21 23:33 Toxic Vacuolation Not Reportable 12/14/21 23:33 Dohle Bodies Not Reportable 12/14/21 23:33 Pelger-Huet Anomaly Not Reportable 12/14/21 23:33 Ruben Rods Not Reportable 12/14/21 23:33 Platelet Estimate Consistent w auto 12/14/21 23:33 Clumped Platelets Not Reportable 12/14/21 23:33 Plt Clumps, EDTA Not Reportable 12/14/21 23:33 Large Platelets Not Reportable 12/14/21 23:33 Giant Platelets Not Reportable 12/14/21 23:33 Platelet Satelliting Not Reportable 12/14/21 23:33 Plt Morphology Comment Not Reportable 12/14/21 23:33 RBC Morphology Not Reportable 12/14/21 23:33 Dimorphic RBCs Not Reportable 12/14/21 23:33 Polychromasia Not Reportable 12/14/21 23:33 Hypochromasia Not Reportable 12/14/21 23:33 Poikilocytosis Not Reportable 12/14/21 23:33 Anisocytosis 1+ 12/14/21 23:33 Microcytosis Not Reportable 12/14/21 23:33 Macrocytosis Not Reportable 12/14/21 23:33 Spherocytes Not Reportable 12/14/21 23:33 Pappenheimer Bodies Not Reportable 12/14/21 23:33 Sickle Cells Not Reportable 12/14/21 23:33 Target Cells Not Reportable 12/14/21 23:33 Tear Drop Cells Not Reportable 12/14/21 23:33 Ovalocytes Not Reportable 12/14/21 23:33 Helmet Cells Not Reportable 12/14/21 23:33 [place]-Gar[place] Bodies Not Reportable 12/14/21 23:33 [place] Rings Not Reportable 12/14/21 23:33 [place] Cells Not Reportable 12/14/21 23:33 Bite Cells Not Reportable 12/14/21 23:33 Crenated Cell Not Reportable 12/14/21 23:33 Elliptocytes Not Reportable 12/14/21 23:33 Acanthocytes (Spur) Not Reportable 12/14/21 23:33 Rouleaux Not Reportable 12/14/21 23:33 Hemoglobin C Crystals Not Reportable 12/14/21 23:33 Schistocytes Not Reportable 12/14/21 23:33 Malaria parasites Not Reportable 12/14/21 23:33 Rojas Bodies Not Reportable 12/14/21 23:33 Hem Pathologist Commnt No 12/14/21 23:33 PT 15.9 Sec. (12.2-14.9) H 12/14/21 16:50 INR 1.14 (0.87-1.13) H 12/14/21 16:50 APTT > 240.0 Sec. (24.2-36.6) H* 12/14/21 16:50 Fibrinogen 375 mg/dl (211-480) 12/15/21 10:27 Heparin Anti-Xa Level 0.10 U.I./ml (0.3-0.7) L 12/15/21 10:27 Sodium 136 mmol/L (137-145) L 12/16/21 04:19 Potassium 6.4 mmol/L (3.6-5.0) H* 12/16/21 04:19 Chloride 92.6 mmol/L (98-107) L 12/16/21 04:19 Carbon Dioxide 22 mmol/L (22-30) 12/16/21 04:19 Anion Gap 28 mmol/L 12/16/21 04:19 BUN 63 mg/dL (7-17) H 12/16/21 04:19 Creatinine 13.0 mg/dL (0.6-1.2) H 12/16/21 04:19 Estimated GFR 4 ml/min 12/16/21 04:19 BUN/Creatinine Ratio 5 % 12/16/21 04:19 Glucose 132 mg/dL (65-100) H 12/16/21 04:19 POC Glucose 143 mg/dL (70-105) H 12/16/21 05:27 Calcium 8.5 mg/dL (8.4-10.2) 12/16/21 04:19 Phosphorus 8.90 mg/dL (2.5-4.5) H 12/16/21 04:19 Magnesium 2.40 mg/dL (1.7-2.3) H 12/16/21 04:19 Total Bilirubin 0.30 mg/dL (0.1-1.2) 12/15/21 04:26 AST 11 units/L (5-40) 12/15/21 04:26 ALT 9 units/L (7-56) 12/15/21 04:26 Alkaline Phosphatase 103 units/L (35-129) 12/15/21 04:26 Total Protein 8.9 g/dL (6.3-8.2) H 12/15/21 04:26 Albumin 4.4 g/dL (3.9-5) 12/15/21 04:26 Albumin/Globulin Ratio 1.0 % 12/15/21 04:26 Hepatitis A IgM Ab Non-reactive (NonReactive) 12/15/21 04:26 Hep Bs Antigen Non-reactive (Negative) 12/15/21 04:26 Hep B Core IgM Ab Non-reactive (NonReactive) 12/15/21 04:26 Hepatitis C Antibody Non-reactive (NonReactive) 12/15/21 04:26 Blood Type O POSITIVE 12/14/21 15:00 Antibody Screen Negative 12/14/21 15:00 Pichardo/IV: Voiding Method Incontinent Active Medications - Current Medications Current Medications: Generic Name Dose Route Start Last Admin Trade Name Freq PRN Reason Stop Dose Admin Acetaminophen 650 mg 12/14/21 13:07 Acetaminophen 325 Mg Tab PO Q4H PRN Fever >100.5/MIJARES Hydrocodone Bitart/Acetaminophen 1 each 12/14/21 17:35 12/16/21 08:49 Hydrocodone/Acetaminophen 5-325 Mg Tab PO 1 each Q4H PRN Administration Pain, Mild (1-3) Hydrocodone Bitart/Acetaminophen 2 each 12/14/21 17:37 12/16/21 02:28 Hydrocodone/Acetaminophen 5-325 Mg Tab PO 2 each Q4H PRN Administration Pain, Moderate (4-6) Albuterol 2.5 mg 12/14/21 13:07 Albuterol 2.5 Mg/3 Ml Nebu IH Q4HRT PRN Shortness Of Breath Apixaban 5 mg 12/15/21 17:00 12/16/21 09:23 Apixaban 5 Mg Tab PO 5 mg Q12HR CHARLA Administration Protocol Clopidogrel Bisulfate 75 mg 12/16/21 10:00 12/16/21 09:23 Clopidogrel 75 Mg Tab PO 75 mg QDAY CHARLA Administration Dextrose 50 ml 12/14/21 13:07 Dextrose 50% In Water (25gm) 50 Ml Syringe IV Q30MIN PRN Hypoglycemia Protocol Gabapentin 100 mg 12/15/21 17:00 12/16/21 09:22 Gabapentin 100 Mg Cap PO 100 mg DAILY CHARLA Administration Heparin Sodium (Porcine) 1,000 unit 12/16/21 10:11 Heparin 10,000 Units/10 Ml Vial IV CHELSEA PRN hemodialysis Heparin Sodium (Porcine) 2,000 unit 12/16/21 10:11 Heparin 10,000 Units/10 Ml Vial IV CHELSEA PRN hemodialysis Hydromorphone HCl 0.5 mg 12/14/21 22:16 12/15/21 15:56 Hydromorphone 1 Mg/1 Ml Inj IV 0.5 mg Q1H PRN Administration Pain , Severe (7-10) Sodium Chloride 100 mls @ 999 mls/hr 12/16/21 08:44 Nacl 0.9% IV CHELSEA PRN Hypotension Insulin Glargine 15 units 12/15/21 22:00 12/15/21 21:27 Insulin Glargine 100 Units/Ml SUB-Q 15 units QHS CHARLA Administration Insulin Human Lispro 0 unit 12/14/21 15:00 12/16/21 06:32 Insulin Lispro 100 Unit/Ml SUB-Q Not Given Q6HR [facility] Protocol Lorazepam 1 mg 12/14/21 22:16 12/16/21 10:08 Lorazepam 2 Mg/Ml Vial IV 1 mg Q4H PRN Administration Agitation Midodrine 10 mg 12/14/21 17:00 12/16/21 09:23 Midodrine 10 Mg Tab PO Not Given TID@0800,1200,1600 [facility] Miscellaneous Medication 210 mg 12/15/21 10:00 Ferric Citrate (Nf) PO QDAY [facility] Ondansetron HCl 4 mg 12/14/21 13:07 Ondansetron 4 Mg/2 Ml Inj IV Q8H PRN Nausea And Vomiting Pantoprazole Sodium 40 mg 12/15/21 10:00 12/16/21 09:22 Pantoprazole 40 Mg Tab PO 40 mg QDAY CHARLA Administration Sevelamer Carbonate 800 mg 12/14/21 17:00 12/16/21 09:22 Sevelamer Carbonate 800 Mg Tab PO Not Given TIDWM CHARLA Sodium Chloride 10 ml 12/14/21 22:00 12/15/21 21:27 Sodium Chloride 0.9% 10 Ml Flush Syringe IV 10 ml BID CHARLA Administration Sodium Chloride 10 ml 12/14/21 14:16 Sodium Chloride 0.9% 10 Ml Flush Syringe IV PRN PRN LINE FLUSH <RAMONE RENDON - Last Filed: 12/17/21 07:24> Assessment and Plan Assessment and plan: I saw and evaluated the patient. I agree with the findings and the plan of care as documented in the Nurse Practitioner's~note, with the following corrections and additions. Hospitalist Physical - Constitutional Vitals: Temp Pulse Resp BP Pulse Ox 98.6 F 84 12 93/62 96 12/17/21 03:17 12/17/21 06:00 12/17/21 06:00 12/17/21 06:00 12/17/21 06:00 Results - Labs CBC & Chem 7: 12/16/21 04:19 12/17/21 04:16 Labs: Laboratory Last Values WBC 8.2 K/mm3 (4.5-11.0) 12/16/21 04:19 RBC 5.29 M/mm3 (3.65-5.03) H 12/16/21 04:19 Hgb 14.8 gm/dl (10.1-14.3) H 12/16/21 04:19 Hct 46.4 % (30.3-42.9) H 12/16/21 04:19 MCV 88 fl (79-97) 12/16/21 04:19 MCH 28 pg (28-32) 12/16/21 04:19 MCHC 32 % (30-34) 12/16/21 04:19 RDW 20.5 % (13.2-15.2) H 12/16/21 04:19 Plt Count 175 K/mm3 (140-440) 12/16/21 04:19 Lymph % (Auto) 12.9 % (13.4-35.0) L 12/15/21 10:27 [place] % (Auto) 11.5 % (0.0-7.3) H 12/15/21 10:27 Eos % (Auto) 0.0 % (0.0-4.3) 12/15/21 10: Baso % (Auto) 0.2 % (0.0-1.8) 12/15/21 10: Lymph # (Auto) 1.0 K/mm3 (1.2-5.4) L 12/15/21 10: [place] # (Auto) 0.9 K/mm3 (0.0-0.8) H 12/15/21 10: Eos # (Auto) 0.0 K/mm3 (0.0-0.4) 12/15/21 10: Baso # (Auto) 0.0 K/mm3 (0.0-0.1) 12/15/21 10:27 Add Manual Diff Complete 12/14/21 23:33 Total Counted 100 12/14/21 23:33 Seg Neutrophils % 75.4 % (40.0-70.0) H 12/15/21 10: Seg Neuts % (Manual) 97.0 % (40.0-70.0) H 12/14/21 23:33 Band Neutrophils % 0 % 12/14/21 23:33 Lymphocytes % (Manual) 3.0 % (13.4-35.0) L 12/14/21 23:33 Reactive Lymphs % (Man) 0 % 12/14/21 23:33 Monocytes % (Manual) 0 % (0.0-7.3) 12/14/21 23:33 Eosinophils % (Manual) 0 % (0.0-4.3) 12/14/21 23:33 Basophils % (Manual) 0 % (0.0-1.8) 12/14/21 23:33 Metamyelocytes % 0 % 12/14/21 23:33 Myelocytes % 0 % 12/14/21 23:33 Promyelocytes % 0 % 12/14/21 23:33 Blast Cells % 0 % 12/14/21 23:33 Nucleated RBC % Not Reportable 12/14/21 23:33 Seg Neutrophils # 5.9 K/mm3 (1.8-7.7) 12/15/21 10:27 Seg Neutrophils # Man 8.1 K/mm3 (1.8-7.7) H 12/14/21 23:33 Band Neutrophils # 0.0 K/mm3 12/14/21 23:33 Lymphocytes # (Manual) 0.2 K/mm3 (1.2-5.4) L 12/14/21 23:33 Abs React Lymphs (Man) 0.0 K/mm3 12/14/21 23:33 Monocytes # (Manual) 0.0 K/mm3 (0.0-0.8) 12/14/21 23:33 Eosinophils # (Manual) 0.0 K/mm3 (0.0-0.4) 12/14/21 23:33 Basophils # (Manual) 0.0 K/mm3 (0.0-0.1) 12/14/21 23:33 Metamyelocytes # 0.0 K/mm3 12/14/21 23:33 Myelocytes # 0.0 K/mm3 12/14/21 23:33 Promyelocytes # 0.0 K/mm3 12/14/21 23:33 Blast Cells # 0.0 K/mm3 12/14/21 23:33 WBC Morphology Not Reportable 12/14/21 23:33 Hypersegmented Neuts Not Reportable 12/14/21 23:33 Hyposegmented Neuts Not Reportable 12/14/21 23:33 Hypogranular Neuts Not Reportable 12/14/21 23:33 Smudge Cells Not Reportable 12/14/21 23:33 Toxic Granulation Not Reportable 12/14/21 23:33 Toxic Vacuolation Not Reportable 12/14/21 23:33 Dohle Bodies Not Reportable 12/14/21 23:33 Pelger-Huet Anomaly Not Reportable 12/14/21 23:33 Ruben Rods Not Reportable 12/14/21 23:33 Platelet Estimate Consistent w auto 12/14/21 23:33 Clumped Platelets Not Reportable 12/14/21 23:33 Plt Clumps, EDTA Not Reportable 12/14/21 23:33 Large Platelets Not Reportable 12/14/21 23:33 Giant Platelets Not Reportable 12/14/21 23:33 Platelet Satelliting Not Reportable 12/14/21 23:33 Plt Morphology Comment Not Reportable 12/14/21 23:33 RBC Morphology Not Reportable 12/14/21 23:33 Dimorphic RBCs Not Reportable 12/14/21 23:33 Polychromasia Not Reportable 12/14/21 23:33 Hypochromasia Not Reportable 12/14/21 23:33 Poikilocytosis Not Reportable 12/14/21 23:33 Anisocytosis 1+ 12/14/21 23:33 Microcytosis Not Reportable 12/14/21 23:33 Macrocytosis Not Reportable 12/14/21 23:33 Spherocytes Not Reportable 12/14/21 23:33 Pappenheimer Bodies Not Reportable 12/14/21 23:33 Sickle Cells Not Reportable 12/14/21 23:33 Target Cells Not Reportable 12/14/21 23:33 Tear Drop Cells Not Reportable 12/14/21 23:33 Ovalocytes Not Reportable 12/14/21 23:33 Helmet Cells Not Reportable 12/14/21 23:33 [place] Bodies Not Reportable 12/14/21 23:33 [place] Rings Not Reportable 12/14/21 23:33 [place] Cells Not Reportable 12/14/21 23:33 Bite Cells Not Reportable 12/14/21 23:33 Crenated Cell Not Reportable 12/14/21 23:33 Elliptocytes Not Reportable 12/14/21 23:33 Acanthocytes (Spur) Not Reportable 12/14/21 23:33 Rouleaux Not Reportable 12/14/21 23:33 Hemoglobin C Crystals Not Reportable 12/14/21 23:33 Schistocytes Not Reportable 12/14/21 23:33 Malaria parasites Not Reportable 12/14/21 23:33 Rojas Bodies Not Reportable 12/14/21 23:33 Hem Pathologist Commnt No 12/14/21 23:33 PT 15.9 Sec. (12.2-14.9) H 12/14/21 16:50 INR 1.14 (0.87-1.13) H 12/14/21 16:50 APTT > 240.0 Sec. (24.2-36.6) H* 12/14/21 16:50 Fibrinogen 375 mg/dl (211-480) 12/15/21 10:27 Heparin Anti-Xa Level 0.10 U.I./ml (0.3-0.7) L 12/15/21 10:27 Sodium 137 mmol/L (137-145) 12/17/21 04:16 Potassium 4.9 mmol/L (3.6-5.0) 12/17/21 04:16 Chloride 97.8 mmol/L (98-107) L 12/17/21 04:16 Carbon Dioxide 24 mmol/L (22-30) 12/17/21 04:16 Anion Gap 20 mmol/L 12/17/21 04:16 BUN 38 mg/dL (7-17) H 12/17/21 04:16 Creatinine 9.8 mg/dL (0.6-1.2) H 12/17/21 04:16 Estimated GFR 5 ml/min 12/17/21 04:16 BUN/Creatinine Ratio 4 % 12/17/21 04:16 Glucose 82 mg/dL (65-100) 12/17/21 04:16 POC Glucose 109 mg/dL (70-105) H 12/17/21 05:20 Calcium 8.4 mg/dL (8.4-10.2) 12/17/21 04:16 Phosphorus 8.90 mg/dL (2.5-4.5) H 12/16/21 04:19 Magnesium 2.40 mg/dL (1.7-2.3) H 12/16/21 04:19 Total Bilirubin 0.30 mg/dL (0.1-1.2) 12/15/21 04:26 AST 11 units/L (5-40) 12/15/21 04:26 ALT 9 units/L (7-56) 12/15/21 04:26 Alkaline Phosphatase 103 units/L (35-129) 12/15/21 04:26 Total Protein 8.9 g/dL (6.3-8.2) H 12/15/21 04:26 Albumin 4.4 g/dL (3.9-5) 12/15/21 04:26 Albumin/Globulin Ratio 1.0 % 12/15/21 04:26 Hepatitis A IgM Ab Non-reactive (NonReactive) 12/15/21 04:26 Hep Bs Antigen Non-reactive (Negative) 12/15/21 04:26 Hep B Core IgM Ab Non-reactive (NonReactive) 12/15/21 04:26 Hepatitis C Antibody Non-reactive (NonReactive) 12/15/21 04:26 Blood Type O POSITIVE 12/14/21 15:00 Antibody Screen Negative 12/14/21 15:00 Pichardo/IV: Voiding Method Incontinent Active Medications - Current Medications Current Medications: Generic Name Dose Route Start Last Admin Trade Name Freq PRN Reason Stop Dose Admin Acetaminophen 650 mg 12/14/21 13:07 Acetaminophen 325 Mg Tab PO Q4H PRN Fever >100.5/MIAJRES Hydrocodone Bitart/Acetaminophen 1 each 12/14/21 17:35 12/16/21 08:49 Hydrocodone/Acetaminophen 5-325 Mg Tab PO 1 each Q4H PRN Administration Pain, Mild (1-3) Hydrocodone Bitart/Acetaminophen 2 each 12/14/21 17:37 12/16/21 23:47 Hydrocodone/Acetaminophen 5-325 Mg Tab PO 2 each Q4H PRN Administration Pain, Moderate (4-6) Albuterol 2.5 mg 12/14/21 13:07 Albuterol 2.5 Mg/3 Ml Nebu IH Q4HRT PRN Shortness Of Breath Apixaban 5 mg 12/15/21 17:00 12/16/21 21:18 Apixaban 5 Mg Tab PO 5 mg Q12HR CHARLA Administration Protocol Clopidogrel Bisulfate 75 mg 12/16/21 10:00 12/16/21 09:23 Clopidogrel 75 Mg Tab PO 75 mg QDAY CHARLA Administration Dextrose 50 ml 12/14/21 13:07 Dextrose 50% In Water (25gm) 50 Ml Syringe IV Q30MIN PRN Hypoglycemia Protocol Gabapentin 100 mg 12/15/21 17:00 12/16/21 09:22 Gabapentin 100 Mg Cap PO 100 mg DAILY CHARLA Administration Heparin Sodium (Porcine) 1,000 unit 12/16/21 10:11 12/16/21 11:14 Heparin 10,000 Units/10 Ml Vial IV 1,000 unit CHELSEA PRN Administration hemodialysis Heparin Sodium (Porcine) 2,000 unit 12/16/21 10:11 12/16/21 10:41 Heparin 10,000 Units/10 Ml Vial IV 2,000 unit CHELSEA PRN Administration hemodialysis Hydromorphone HCl 0.5 mg 12/14/21 22:16 12/15/21 15:56 Hydromorphone 1 Mg/1 Ml Inj IV 0.5 mg Q1H PRN Administration Pain , Severe (7-10) Sodium Chloride 100 mls @ 999 mls/hr 12/16/21 08:44 Nacl 0.9% IV CHELSEA PRN Hypotension Insulin Glargine 15 units 12/15/21 22:00 12/16/21 21:16 Insulin Glargine 100 Units/Ml SUB-Q 15 units QHS CHARLA Administration Insulin Human Lispro 0 unit 12/14/21 15:00 12/17/21 05:28 Insulin Lispro 100 Unit/Ml SUB-Q Not Given Q6HR [facility] Protocol Lorazepam 1 mg 12/14/21 22:16 12/16/21 20:03 Lorazepam 2 Mg/Ml Vial IV 1 mg Q4H PRN Administration Agitation Midodrine 10 mg 12/14/21 17:00 12/16/21 17:48 Midodrine 10 Mg Tab PO 10 mg TID@0800,1200,1600 [facility] Administration Miscellaneous Medication 210 mg 12/15/21 10:00 Ferric Citrate (Nf) PO QDAY CHARLA Ondansetron HCl 4 mg 12/14/21 13:07 Ondansetron 4 Mg/2 Ml Inj IV Q8H PRN Nausea And Vomiting Pantoprazole Sodium 40 mg 12/15/21 10:00 12/16/21 09:22 Pantoprazole 40 Mg Tab PO 40 mg QDAY CHARLA Administration Sevelamer Carbonate 800 mg 12/14/21 17:00 12/16/21 17:48 Sevelamer Carbonate 800 Mg Tab PO 800 mg TIDWM CHARLA Administration Sodium Chloride 10 ml 12/14/21 22:00 12/16/21 21:15 Sodium Chloride 0.9% 10 Ml Flush Syringe IV 10 ml BID CHARLA Administration Sodium Chloride 10 ml 12/14/21 14:16 Sodium Chloride 0.9% 10 Ml Flush Syringe IV PRN PRN LINE FLUSH
[2021-12-16] MEDS: HEPARIN 10,000 UNITS/10 ML VIAL IV PRN (10:41)
--- NOTE | 2021-12-16 14:03 | Progress Note ---
Assessment and Plan Patient doing well following revascularization procedure. Okay to move patient to a regular bed. Patient will need to ambulate with anticipated discharge tomorrow. Subjective Date of service: 12/16/21 Principal diagnosis: Left leg arterial thrombus Interval history: Patient is doing well following revascularization of her left leg. Intact motor and sensation to both ankles and residual feet. Patient with only mild complaints of pain. No tenderness to palpation on either side. Objective - Constitutional Vitals: Vital Signs - 12hr 12/16/21 12/16/21 12/16/21 02:15 02:28 02:30 Temperature Pulse Rate 101 H 94 H Pulse Rate [ From Monitor] Respiratory 13 19 Rate Respiratory Rate [Left Leg] Blood Pressure 80/41 O2 Sat by Pulse 99 Oximetry O2 Sat by Pulse Oximetry [ Anterior Bilateral] 12/16/21 12/16/21 12/16/21 02:31 02:45 03:00 Temperature Pulse Rate 99 H 99 H 96 H Pulse Rate [ From Monitor] Respiratory 15 25 H 14 Rate Respiratory Rate [Left Leg] Blood Pressure 103/54 103/54 101/57 O2 Sat by Pulse 98 98 99 Oximetry O2 Sat by Pulse Oximetry [ Anterior Bilateral] 12/16/21 12/16/21 12/16/21 03:15 03:28 03:31 Temperature Pulse Rate 97 H 98 H Pulse Rate [ From Monitor] Respiratory 13 16 13 Rate Respiratory Rate [Left Leg] Blood Pressure 101/57 101/57 O2 Sat by Pulse 100 100 Oximetry O2 Sat by Pulse Oximetry [ Anterior Bilateral] 12/16/21 12/16/21 12/16/21 03:45 04:00 04:15 Temperature 97.5 F L Pulse Rate 96 H 96 H 95 H Pulse Rate [ From Monitor] Respiratory 13 12 13 Rate Respiratory Rate [Left Leg] Blood Pressure 101/57 87/47 98/50 O2 Sat by Pulse 100 100 99 Oximetry O2 Sat by Pulse Oximetry [ Anterior Bilateral] 12/16/21 12/16/21 12/16/21 04:31 04:45 04:59 Temperature Pulse Rate 95 H 95 H 95 H Pulse Rate [ From Monitor] Respiratory 12 14 16 Rate Respiratory Rate [Left Leg] Blood Pressure 98/50 98/50 O2 Sat by Pulse 98 99 100 Oximetry O2 Sat by Pulse Oximetry [ Anterior Bilateral] 12/16/21 12/16/21 12/16/21 05:00 05:15 05:31 Temperature Pulse Rate 94 H 95 H 96 H Pulse Rate [ From Monitor] Respiratory 15 14 11 L Rate Respiratory Rate [Left Leg] Blood Pressure 88/40 88/40 88/40 O2 Sat by Pulse 100 98 98 Oximetry O2 Sat by Pulse Oximetry [ Anterior Bilateral] 12/16/21 12/16/21 12/16/21 05:45 05:46 06:00 Temperature Pulse Rate 96 H 96 H 95 H Pulse Rate [ From Monitor] Respiratory 12 14 Rate Respiratory Rate [Left Leg] Blood Pressure 111/50 102/54 O2 Sat by Pulse 99 100 98 Oximetry O2 Sat by Pulse Oximetry [ Anterior Bilateral] 12/16/21 12/16/21 12/16/21 06:15 06:28 06:29 Temperature Pulse Rate 95 H 95 H Pulse Rate [ From Monitor] Respiratory 13 Rate Respiratory Rate [Left Leg] Blood Pressure 102/54 O2 Sat by Pulse 99 100 Oximetry O2 Sat by Pulse Oximetry [ Anterior Bilateral] 12/16/21 12/16/21 12/16/21 06:31 06:45 07:00 Temperature Pulse Rate 92 H 94 H 93 H Pulse Rate [ From Monitor] Respiratory 14 13 12 Rate Respiratory Rate [Left Leg] Blood Pressure 102/54 102/54 122/71 O2 Sat by Pulse 99 98 100 Oximetry O2 Sat by Pulse Oximetry [ Anterior Bilateral] 12/16/21 12/16/21 12/16/21 07:15 07:31 07:45 Temperature Pulse Rate 92 H 102 H 93 H Pulse Rate [ From Monitor] Respiratory 12 19 17 Rate Respiratory Rate [Left Leg] Blood Pressure 122/71 122/71 122/71 O2 Sat by Pulse 100 92 99 Oximetry O2 Sat by Pulse Oximetry [ Anterior Bilateral] 12/16/21 12/16/21 12/16/21 08:00 08:15 08:31 Temperature 97.8 F Pulse Rate 96 H 97 H 95 H Pulse Rate [ 98 H From Monitor] Respiratory 13 12 12 Rate Respiratory Rate [Left Leg] Blood Pressure 112/66 112/66 112/66 O2 Sat by Pulse 99 97 99 Oximetry O2 Sat by Pulse Oximetry [ Anterior Bilateral] 12/16/21 12/16/21 12/16/21 08:45 08:49 09:00 Temperature Pulse Rate 94 H 94 H Pulse Rate [ From Monitor] Respiratory 14 12 12 Rate Respiratory Rate [Left Leg] Blood Pressure 112/66 127/72 O2 Sat by Pulse 99 99 Oximetry O2 Sat by Pulse Oximetry [ Anterior Bilateral] 12/16/21 12/16/21 12/16/21 09:15 09:31 09:45 Temperature Pulse Rate 94 H 98 H 97 H Pulse Rate [ From Monitor] Respiratory 11 L 17 14 Rate Respiratory Rate [Left Leg] Blood Pressure 127/72 117/66 O2 Sat by Pulse 100 98 98 Oximetry O2 Sat by Pulse Oximetry [ Anterior Bilateral] 12/16/21 12/16/21 12/16/21 10:00 10:15 10:30 Temperature Pulse Rate 94 H 97 H 96 H Pulse Rate [ From Monitor] Respiratory 13 11 L 12 Rate Respiratory 12 Rate [Left Leg] Blood Pressure 117/77 93/55 86/40 O2 Sat by Pulse 100 98 98 Oximetry O2 Sat by Pulse Oximetry [ Anterior Bilateral] 12/16/21 12/16/21 12/16/21 10:45 10:50 11:00 Temperature 99.2 F Pulse Rate 98 H 95 H 100 H Pulse Rate [ From Monitor] Respiratory 12 16 11 L Rate Respiratory Rate [Left Leg] Blood Pressure 72/39 114/66 78/40 O2 Sat by Pulse 98 97 Oximetry O2 Sat by Pulse 98 Oximetry [ Anterior Bilateral] 12/16/21 12/16/21 12/16/21 11:15 11:30 11:45 Temperature Pulse Rate 98 H 96 H 94 H Pulse Rate [ From Monitor] Respiratory 12 Rate Respiratory Rate [Left Leg] Blood Pressure 90/48 87/51 91/60 O2 Sat by Pulse 100 Oximetry O2 Sat by Pulse Oximetry [ Anterior Bilateral] 12/16/21 12/16/21 12/16/21 12:00 12:15 12:30 Temperature 99.1 F Pulse Rate 91 H 73 90 Pulse Rate [ From Monitor] Respiratory Rate Respiratory Rate [Left Leg] Blood Pressure 98/65 92/61 97/64 O2 Sat by Pulse Oximetry O2 Sat by Pulse Oximetry [ Anterior Bilateral] 12/16/21 12/16/21 12/16/21 12:45 12:59 13:00 Temperature Pulse Rate 90 90 Pulse Rate [ From Monitor] Respiratory Rate Respiratory Rate [Left Leg] Blood Pressure 87/62 90/61 O2 Sat by Pulse 100 Oximetry O2 Sat by Pulse Oximetry [ Anterior Bilateral] 12/16/21 12/16/21 13:15 13:30 Temperature Pulse Rate 93 H 91 H Pulse Rate [ From Monitor] Respiratory Rate Respiratory Rate [Left Leg] Blood Pressure 98/61 98/67 O2 Sat by Pulse Oximetry O2 Sat by Pulse Oximetry [ Anterior Bilateral] General appearance: Present: no acute distress - EENT Eyes: EOM intact ENT: hearing intact - Neck Neck: supple, normal ROM - Respiratory Respiratory effort: normal - Gastrointestinal General gastrointestinal: Present: deferred - Psychiatric Psychiatric: appropriate mood/affect, cooperative - Labs CBC & Chem 7: 12/16/21 04:19 12/16/21 04:19 Labs: Abnormal lab results 12/15/21 12/15/21 12/15/21 Range/Units 16:28 21:06 23:15 RBC (3.65-5.03) M/mm3 Hgb (10.1-14.3) gm/dl Hct (30.3-42.9) % RDW (13.2-15.2) % Sodium (137-145) mmol/L Potassium (3.6-5.0) mmol/L Chloride (98-107) mmol/L BUN (7-17) mg/dL Creatinine (0.6-1.2) mg/dL Glucose (65-100) mg/dL POC Glucose 261 H 216 H 180 H (70-105) mg/dL Phosphorus (2.5-4.5) mg/dL Magnesium (1.7-2.3) mg/dL 12/16/21 12/16/21 12/16/21 Range/Units 04:19 04:19 05:27 RBC 5.29 H (3.65-5.03) M/mm3 Hgb 14.8 H (10.1-14.3) gm/dl Hct 46.4 H (30.3-42.9) % RDW 20.5 H (13.2-15.2) % Sodium 136 L (137-145) mmol/L Potassium 6.4 H* (3.6-5.0) mmol/L Chloride 92.6 L (98-107) mmol/L BUN 63 H (7-17) mg/dL Creatinine 13.0 H (0.6-1.2) mg/dL Glucose 132 H (65-100) mg/dL POC Glucose 143 H (70-105) mg/dL Phosphorus 8.90 H (2.5-4.5) mg/dL Magnesium 2.40 H (1.7-2.3) mg/dL 12/16/21 Range/Units 11:42 RBC (3.65-5.03) M/mm3 Hgb (10.1-14.3) gm/dl Hct (30.3-42.9) % RDW (13.2-15.2) % Sodium (137-145) mmol/L Potassium (3.6-5.0) mmol/L Chloride (98-107) mmol/L BUN (7-17) mg/dL Creatinine (0.6-1.2) mg/dL Glucose (65-100) mg/dL POC Glucose 136 H (70-105) mg/dL Phosphorus (2.5-4.5) mg/dL Magnesium (1.7-2.3) mg/dL Medications & Allergies - Medications Allergies/Adverse Reactions: Allergies shellfish derived Allergy (Verified 12/15/21 08:30) Itching Home Medications: Home Medications Medication Instructions Recorded Confirmed Last Taken Type Apixaban [Eliquis] 2.5 mg PO QDAY 12/14/21 12/14/21 Unknown History Ferric Citrate (Nf) [Auryxia] 210 mg PO QDAY 12/14/21 12/14/21 Unknown History Gabapentin [Neurontin] 300 mg PO Q8HR 12/14/21 12/14/21 Unknown History Midodrine [Proamatine] 10 mg PO TID@0800,1200,1600 12/14/21 12/14/21 Unknown History Oxycodone HCl/Acetaminophen 1 each PO Q8HR 12/14/21 12/14/21 Unknown History [Oxycodone-Acetaminophen 5-300] Pantoprazole [Protonix] 40 mg PO QDAY 12/14/21 12/14/21 Unknown History Sevelamer Carbonate [Renvela] 800 mg PO TIDWM 12/14/21 12/14/21 Unknown History Active Medications: Generic Name Dose Route Start Last Admin Trade Name Freq PRN Reason Stop Dose Admin Acetaminophen 650 mg 12/14/21 13:07 Acetaminophen 325 Mg Tab PO Q4H PRN Fever >100.5/MIJARES Hydrocodone Bitart/Acetaminophen 1 each 12/14/21 17:35 12/16/21 08:49 Hydrocodone/Acetaminophen 5-325 Mg Tab PO 1 each Q4H PRN Administration Pain, Mild (1-3) Hydrocodone Bitart/Acetaminophen 2 each 12/14/21 17:37 12/16/21 02:28 Hydrocodone/Acetaminophen 5-325 Mg Tab PO 2 each Q4H PRN Administration Pain, Moderate (4-6) Albuterol 2.5 mg 12/14/21 13:07 Albuterol 2.5 Mg/3 Ml Nebu IH Q4HRT PRN Shortness Of Breath Apixaban 5 mg 12/15/21 17:00 12/16/21 09:23 Apixaban 5 Mg Tab PO 5 mg Q12HR CHARLA Administration Protocol Clopidogrel Bisulfate 75 mg 12/16/21 10:00 12/16/21 09:23 Clopidogrel 75 Mg Tab PO 75 mg QDAY CHARLA Administration Dextrose 50 ml 12/14/21 13:07 Dextrose 50% In Water (25gm) 50 Ml Syringe IV Q30MIN PRN Hypoglycemia Protocol Gabapentin 100 mg 12/15/21 17:00 12/16/21 09:22 Gabapentin 100 Mg Cap PO 100 mg DAILY CHARLA Administration Heparin Sodium (Porcine) 1,000 unit 12/16/21 10:11 12/16/21 11:14 Heparin 10,000 Units/10 Ml Vial IV 1,000 unit CHELSEA PRN Administration hemodialysis Heparin Sodium (Porcine) 2,000 unit 12/16/21 10:11 12/16/21 10:41 Heparin 10,000 Units/10 Ml Vial IV 2,000 unit CHELSEA PRN Administration hemodialysis Hydromorphone HCl 0.5 mg 12/14/21 22:16 12/15/21 15:56 Hydromorphone 1 Mg/1 Ml Inj IV 0.5 mg Q1H PRN Administration Pain , Severe (7-10) Sodium Chloride 100 mls @ 999 mls/hr 12/16/21 08:44 Nacl 0.9% IV CHELSEA PRN Hypotension Insulin Glargine 15 units 12/15/21 22:00 12/15/21 21:27 Insulin Glargine 100 Units/Ml SUB-Q 15 units QHS CHARLA Administration Insulin Human Lispro 0 unit 12/14/21 15:00 12/16/21 06:32 Insulin Lispro 100 Unit/Ml SUB-Q Not Given Q6HR CHARLA Protocol Lorazepam 1 mg 12/14/21 22:16 12/16/21 10:08 Lorazepam 2 Mg/Ml Vial IV 1 mg Q4H PRN Administration Agitation Midodrine 10 mg 12/14/21 17:00 12/16/21 10:57 Midodrine 10 Mg Tab PO 10 mg TID@0800,1200,1600 CHARLA Administration Miscellaneous Medication 210 mg 12/15/21 10:00 Ferric Citrate (Nf) PO QDAY CHARLA Ondansetron HCl 4 mg 12/14/21 13:07 Ondansetron 4 Mg/2 Ml Inj IV Q8H PRN Nausea And Vomiting Pantoprazole Sodium 40 mg 12/15/21 10:00 12/16/21 09:22 Pantoprazole 40 Mg Tab PO 40 mg QDAY CHARLA Administration Sevelamer Carbonate 800 mg 12/14/21 17:00 12/16/21 09:22 Sevelamer Carbonate 800 Mg Tab PO Not Given TIDWM CHARLA Sodium Chloride 10 ml 12/14/21 22:00 12/15/21 21:27 Sodium Chloride 0.9% 10 Ml Flush Syringe IV 10 ml BID CHARLA Administration Sodium Chloride 10 ml 12/14/21 14:16 Sodium Chloride 0.9% 10 Ml Flush Syringe IV PRN PRN LINE FLUSH
--- NOTE | 2021-12-16 20:02 | Electrocardiograph Report ---
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
[2021-12-16] MEDS: INSULIN GLARGINE 100 UNITS/ML SUB-Q SCH (21:16)
[2021-12-16 22:28] LABS: Calcium 8.3 mg/dL (8.4-10.2)
[2021-12-17] MEDS: INSULIN LISPRO 100 UNIT/ML SUB-Q SCH ×7 (00:27→17:38)
[2021-12-17 05:45] LABS: Calcium 8.4 mg/dL (8.4-10.2)
[2021-12-17] MEDS: MIDODRINE 10 MG TAB PO SCH ×5 (07:38→16:37)
[2021-12-17] MEDS: SEVELAMER CARBONATE 800 MG TAB PO SCH ×5 (07:39→17:38)
--- NOTE | 2021-12-17 09:16 | Progress Note ---
Assessment and Plan Impression: * End stage renal disease * Ischemic limb, left leg * Hyperkalemia * Anemia secondary to ESRD * Secondary hyperparathyroidism Plan: * Hemodialysis today * UF as tolerated * Assess need for HD tomorrow * Vascular surgery following * Epogen TIW prn * Renal/HD diet Subjective Date of service: 12/16/21 Principal diagnosis: Left leg arterial thrombus Interval history: Patient c/o leg pain Objective - Vital Signs Vital signs: Vital Signs - 12hr 12/16/21 12/16/21 12/16/21 21:15 21:16 21:31 Temperature Pulse Rate 92 H 92 H 93 H Respiratory 7 L 7 L 15 Rate Blood Pressure 110/62 110/62 110/62 O2 Sat by Pulse 100 100 98 Oximetry 12/16/21 12/16/21 12/16/21 21:45 22:01 22:50 Temperature Pulse Rate 94 H 90 90 Respiratory 26 H 14 16 Rate Blood Pressure 110/62 85/42 O2 Sat by Pulse 99 98 99 Oximetry 12/16/21 12/16/21 12/17/21 23:24 23:47 00:24 Temperature 99.2 F Pulse Rate 93 H Respiratory 27 H 14 Rate Blood Pressure O2 Sat by Pulse 99 Oximetry 12/17/21 12/17/21 12/17/21 00:30 00:46 00:47 Temperature Pulse Rate 93 H 91 H Respiratory 13 12 16 Rate Blood Pressure 110/62 O2 Sat by Pulse 98 98 Oximetry 12/17/21 12/17/21 12/17/21 00:53 01:00 01:16 Temperature Pulse Rate 90 92 H 88 Respiratory 16 11 L 23 Rate Blood Pressure 107/74 107/74 O2 Sat by Pulse 96 92 95 Oximetry 12/17/21 12/17/21 12/17/21 01:30 01:46 02:00 Temperature Pulse Rate 87 88 88 Respiratory 12 12 13 Rate Blood Pressure 107/74 107/74 114/77 O2 Sat by Pulse 94 94 93 Oximetry 12/17/21 12/17/21 12/17/21 02:16 02:30 02:36 Temperature Pulse Rate 84 85 Respiratory 10 L 12 16 Rate Blood Pressure 114/77 114/77 O2 Sat by Pulse 96 97 97 Oximetry 12/17/21 12/17/21 12/17/21 02:46 03:00 03:16 Temperature Pulse Rate 82 82 84 Respiratory 21 18 11 L Rate Blood Pressure 114/77 105/72 105/72 O2 Sat by Pulse 97 95 95 Oximetry 12/17/21 12/17/21 12/17/21 03:17 03:30 03:46 Temperature 98.6 F Pulse Rate 85 85 Respiratory 11 L 11 L Rate Blood Pressure 105/72 105/72 O2 Sat by Pulse 94 94 Oximetry 12/17/21 12/17/21 12/17/21 03:50 04:00 04:16 Temperature Pulse Rate 85 84 86 Respiratory 16 12 12 Rate Blood Pressure 105/71 105/71 O2 Sat by Pulse 97 92 93 Oximetry 12/17/21 12/17/21 12/17/21 04:30 04:46 05:00 Temperature Pulse Rate 84 85 81 Respiratory 11 L 12 14 Rate Blood Pressure 105/71 105/71 98/58 O2 Sat by Pulse 96 95 97 Oximetry 12/17/21 12/17/21 12/17/21 05:10 05:16 05:30 Temperature Pulse Rate 81 85 82 Respiratory 17 13 Rate Blood Pressure 98/58 98/58 O2 Sat by Pulse 97 95 96 Oximetry 12/17/21 12/17/21 12/17/21 05:46 06:00 06:16 Temperature Pulse Rate 85 84 83 Respiratory 11 L 12 12 Rate Blood Pressure 98/58 93/62 93/62 O2 Sat by Pulse 96 96 97 Oximetry 12/17/21 12/17/21 12/17/21 06:30 06:46 07:00 Temperature Pulse Rate 85 83 84 Respiratory 13 12 12 Rate Blood Pressure 93/62 93/62 98/51 O2 Sat by Pulse 95 96 97 Oximetry 12/17/21 12/17/21 12/17/21 07:16 07:30 07:46 Temperature Pulse Rate 84 85 91 H Respiratory 11 L 12 11 L Rate Blood Pressure 98/51 98/51 98/51 O2 Sat by Pulse 98 96 97 Oximetry 12/17/21 12/17/21 12/17/21 08:00 08:16 08:30 Temperature Pulse Rate 96 H 97 H 109 H Respiratory 15 13 24 Rate Blood Pressure 97/61 97/61 97/61 O2 Sat by Pulse 96 97 Oximetry - General Appearance General appearance: well-developed, well-nourished EENT: ATNC Neck: no JVD Respiratory: Present: Clear to Ascultation Cardiology: regular, S1S2 Gastrointestinal: normal, no tenderness, no distended Integumentary: no rash, warm and dry Musculoskeletal: other (Left LE warm) Psychiatric: cooperative - Lab 12/16/21 04:19 12/17/21 04:16 Most recent lab results Calcium 8.4 mg/dL (8.4-10.2) 12/17/21 04:16 Phosphorus 8.90 mg/dL (2.5-4.5) H 12/16/21 04:19 Magnesium 2.40 mg/dL (1.7-2.3) H 12/16/21 04:19 Medications & Allergies - Medications Allergies/Adverse Reactions: Allergies shellfish derived Allergy (Verified 12/15/21 08:30) Itching Home Medications: Home Medications Medication Instructions Recorded Confirmed Last Taken Type Apixaban [Eliquis] 2.5 mg PO QDAY 12/14/21 12/14/21 Unknown History Ferric Citrate (Nf) [Auryxia] 210 mg PO QDAY 12/14/21 12/14/21 Unknown History Gabapentin [Neurontin] 300 mg PO Q8HR 12/14/21 12/14/21 Unknown History Midodrine [Proamatine] 10 mg PO TID@0800,1200,1600 12/14/21 12/14/21 Unknown History Oxycodone HCl/Acetaminophen 1 each PO Q8HR 12/14/21 12/14/21 Unknown History [Oxycodone-Acetaminophen 5-300] Pantoprazole [Protonix] 40 mg PO QDAY 12/14/21 12/14/21 Unknown History Sevelamer Carbonate [Renvela] 800 mg PO TIDWM 12/14/21 12/14/21 Unknown History Active Medications: Generic Name Dose Route Start Last Admin Trade Name Freq PRN Reason Stop Dose Admin Acetaminophen 650 mg 12/14/21 13:07 Acetaminophen 325 Mg Tab PO Q4H PRN Fever >100.5/MIJARES Hydrocodone Bitart/Acetaminophen 1 each 12/14/21 17:35 12/16/21 08:49 Hydrocodone/Acetaminophen 5-325 Mg Tab PO 1 each Q4H PRN Administration Pain, Mild (1-3) Hydrocodone Bitart/Acetaminophen 2 each 12/14/21 17:37 12/16/21 23:47 Hydrocodone/Acetaminophen 5-325 Mg Tab PO 2 each Q4H PRN Administration Pain, Moderate (4-6) Albuterol 2.5 mg 12/14/21 13:07 Albuterol 2.5 Mg/3 Ml Nebu IH Q4HRT PRN Shortness Of Breath Apixaban 5 mg 12/15/21 17:00 12/16/21 21:18 Apixaban 5 Mg Tab PO 5 mg Q12HR CHARLA Administration Protocol Clopidogrel Bisulfate 75 mg 12/16/21 10:00 12/16/21 09:23 Clopidogrel 75 Mg Tab PO 75 mg QDAY CHARLA Administration Dextrose 50 ml 12/14/21 13:07 Dextrose 50% In Water (25gm) 50 Ml Syringe IV Q30MIN PRN Hypoglycemia Protocol Gabapentin 100 mg 12/15/21 17:00 12/16/21 09:22 Gabapentin 100 Mg Cap PO 100 mg DAILY CHARLA Administration Heparin Sodium (Porcine) 1,000 unit 12/16/21 10:11 12/16/21 11:14 Heparin 10,000 Units/10 Ml Vial IV 1,000 unit CHELSEA PRN Administration hemodialysis Heparin Sodium (Porcine) 2,000 unit 12/16/21 10:11 12/16/21 10:41 Heparin 10,000 Units/10 Ml Vial IV 2,000 unit CHELSEA PRN Administration hemodialysis Hydromorphone HCl 0.5 mg 12/14/21 22:16 12/15/21 15:56 Hydromorphone 1 Mg/1 Ml Inj IV 0.5 mg Q1H PRN Administration Pain , Severe (7-10) Sodium Chloride 100 mls @ 999 mls/hr 12/16/21 08:44 Nacl 0.9% IV CHELSEA PRN Hypotension Insulin Glargine 15 units 12/15/21 22:00 12/16/21 21:16 Insulin Glargine 100 Units/Ml SUB-Q 15 units QHS CHARLA Administration Insulin Human Lispro 0 unit 12/14/21 15:00 12/17/21 05:28 Insulin Lispro 100 Unit/Ml SUB-Q Not Given Q6HR [facility] Protocol Lorazepam 1 mg 12/14/21 22:16 12/16/21 20:03 Lorazepam 2 Mg/Ml Vial IV 1 mg Q4H PRN Administration Agitation Midodrine 10 mg 12/14/21 17:00 12/17/21 07:38 Midodrine 10 Mg Tab PO 10 mg TID@0800,1200,1600 CHARLA Administration Miscellaneous Medication 210 mg 12/15/21 10:00 Ferric Citrate (Nf) PO QDAY CHARLA Ondansetron HCl 4 mg 12/14/21 13:07 Ondansetron 4 Mg/2 Ml Inj IV Q8H PRN Nausea And Vomiting Pantoprazole Sodium 40 mg 12/15/21 10:00 12/16/21 09:22 Pantoprazole 40 Mg Tab PO 40 mg QDAY CHARLA Administration Sevelamer Carbonate 800 mg 12/14/21 17:00 12/17/21 07:39 Sevelamer Carbonate 800 Mg Tab PO 800 mg TIDWM CHARLA Administration Sodium Chloride 10 ml 12/14/21 22:00 12/16/21 21:15 Sodium Chloride 0.9% 10 Ml Flush Syringe IV 10 ml BID CHARLA Administration Sodium Chloride 10 ml 12/14/21 14:16 Sodium Chloride 0.9% 10 Ml Flush Syringe IV PRN PRN LINE FLUSH
--- NOTE | 2021-12-17 09:17 | Progress Note ---
Assessment and Plan Impression: * End stage renal disease * Ischemic limb, left leg * Hyperkalemia * Anemia secondary to ESRD * Secondary hyperparathyroidism Plan: * Patient is s/p HD yesterday. No acute need for HD today * Will plan for HD tomorrow * UF as tolerated * Resume outpatient MWF schedule next week * Vascular surgery recomomendations noted * Epogen TIW prn * Change current diet to Renal/HD diet Subjective Date of service: 12/17/21 Principal diagnosis: Left leg arterial thrombus Interval history: Patient denies left leg pain. She has no complaints today Objective - Vital Signs Vital signs: Vital Signs - 12hr 12/16/21 12/16/21 12/16/21 21:31 21:45 22:01 Temperature Pulse Rate 93 H 94 H 90 Respiratory 15 26 H 14 Rate Blood Pressure 110/62 110/62 85/42 O2 Sat by Pulse 98 99 98 Oximetry 12/16/21 12/16/21 12/16/21 22:50 23:24 23:47 Temperature 99.2 F Pulse Rate 90 Respiratory 16 27 H Rate Blood Pressure O2 Sat by Pulse 99 Oximetry 12/17/21 12/17/21 12/17/21 00:24 00:30 00:46 Temperature Pulse Rate 93 H 93 H 91 H Respiratory 14 13 12 Rate Blood Pressure 110/62 O2 Sat by Pulse 99 98 98 Oximetry 12/17/21 12/17/21 12/17/21 00:47 00:53 01:00 Temperature Pulse Rate 90 92 H Respiratory 16 16 11 L Rate Blood Pressure 107/74 O2 Sat by Pulse 96 92 Oximetry 12/17/21 12/17/21 12/17/21 01:16 01:30 01:46 Temperature Pulse Rate 88 87 88 Respiratory 23 12 12 Rate Blood Pressure 107/74 107/74 107/74 O2 Sat by Pulse 95 94 94 Oximetry 12/17/21 12/17/21 12/17/21 02:00 02:16 02:30 Temperature Pulse Rate 88 84 85 Respiratory 13 10 L 12 Rate Blood Pressure 114/77 114/77 114/77 O2 Sat by Pulse 93 96 97 Oximetry 12/17/21 12/17/21 12/17/21 02:36 02:46 03:00 Temperature Pulse Rate 82 82 Respiratory 16 21 18 Rate Blood Pressure 114/77 105/72 O2 Sat by Pulse 97 97 95 Oximetry 12/17/21 12/17/21 12/17/21 03:16 03:17 03:30 Temperature 98.6 F Pulse Rate 84 85 Respiratory 11 L 11 L Rate Blood Pressure 105/72 105/72 O2 Sat by Pulse 95 94 Oximetry 12/17/21 12/17/21 12/17/21 03:46 03:50 04:00 Temperature Pulse Rate 85 85 84 Respiratory 11 L 16 12 Rate Blood Pressure 105/72 105/71 O2 Sat by Pulse 94 97 92 Oximetry 12/17/21 12/17/21 12/17/21 04:16 04:30 04:46 Temperature Pulse Rate 86 84 85 Respiratory 12 11 L 12 Rate Blood Pressure 105/71 105/71 105/71 O2 Sat by Pulse 93 96 95 Oximetry 12/17/21 12/17/21 12/17/21 05:00 05:10 05:16 Temperature Pulse Rate 81 81 85 Respiratory 14 17 Rate Blood Pressure 98/58 98/58 O2 Sat by Pulse 97 97 95 Oximetry 12/17/21 12/17/21 12/17/21 05:30 05:46 06:00 Temperature Pulse Rate 82 85 84 Respiratory 13 11 L 12 Rate Blood Pressure 98/58 98/58 93/62 O2 Sat by Pulse 96 96 96 Oximetry 12/17/21 12/17/21 12/17/21 06:16 06:30 06:46 Temperature Pulse Rate 83 85 83 Respiratory 12 13 12 Rate Blood Pressure 93/62 93/62 93/62 O2 Sat by Pulse 97 95 96 Oximetry 12/17/21 12/17/21 12/17/21 07:00 07:16 07:30 Temperature Pulse Rate 84 84 85 Respiratory 12 11 L 12 Rate Blood Pressure 98/51 98/51 98/51 O2 Sat by Pulse 97 98 96 Oximetry 12/17/21 12/17/21 12/17/21 07:46 08:00 08:16 Temperature Pulse Rate 91 H 96 H 97 H Respiratory 11 L 15 13 Rate Blood Pressure 98/51 97/61 97/61 O2 Sat by Pulse 97 96 97 Oximetry 12/17/21 08:30 Temperature Pulse Rate 109 H Respiratory 24 Rate Blood Pressure 97/61 O2 Sat by Pulse Oximetry - General Appearance General appearance: well-developed, well-nourished EENT: ATNC Respiratory: Present: Clear to Ascultation Cardiology: regular, S1S2 Gastrointestinal: normal, no tenderness, no distended Integumentary: warm and dry Neurologic: alert and oriented x3 Psychiatric: cooperative - Lab 12/16/21 04:19 12/17/21 04:16 Most recent lab results Calcium 8.4 mg/dL (8.4-10.2) 12/17/21 04:16 Phosphorus 8.90 mg/dL (2.5-4.5) H 12/16/21 04:19 Magnesium 2.40 mg/dL (1.7-2.3) H 12/16/21 04:19 Medications & Allergies - Medications Allergies/Adverse Reactions: Allergies shellfish derived Allergy (Verified 12/15/21 08:30) Itching Home Medications: Home Medications Medication Instructions Recorded Confirmed Last Taken Type Apixaban [Eliquis] 2.5 mg PO QDAY 12/14/21 12/14/21 Unknown History Ferric Citrate (Nf) [Auryxia] 210 mg PO QDAY 12/14/21 12/14/21 Unknown History Gabapentin [Neurontin] 300 mg PO Q8HR 12/14/21 12/14/21 Unknown History Midodrine [Proamatine] 10 mg PO TID@0800,1200,1600 12/14/21 12/14/21 Unknown History Oxycodone HCl/Acetaminophen 1 each PO Q8HR 12/14/21 12/14/21 Unknown History [Oxycodone-Acetaminophen 5-300] Pantoprazole [Protonix] 40 mg PO QDAY 12/14/21 12/14/21 Unknown History Sevelamer Carbonate [Renvela] 800 mg PO TIDWM 12/14/21 12/14/21 Unknown History Active Medications: Generic Name Dose Route Start Last Admin Trade Name Freq PRN Reason Stop Dose Admin Acetaminophen 650 mg 12/14/21 13:07 Acetaminophen 325 Mg Tab PO Q4H PRN Fever >100.5/MIJARES Hydrocodone Bitart/Acetaminophen 1 each 12/14/21 17:35 12/16/21 08:49 Hydrocodone/Acetaminophen 5-325 Mg Tab PO 1 each Q4H PRN Administration Pain, Mild (1-3) Hydrocodone Bitart/Acetaminophen 2 each 12/14/21 17:37 12/16/21 23:47 Hydrocodone/Acetaminophen 5-325 Mg Tab PO 2 each Q4H PRN Administration Pain, Moderate (4-6) Albuterol 2.5 mg 12/14/21 13:07 Albuterol 2.5 Mg/3 Ml Nebu IH Q4HRT PRN Shortness Of Breath Apixaban 5 mg 12/15/21 17:00 12/16/21 21:18 Apixaban 5 Mg Tab PO 5 mg Q12HR CHARLA Administration Protocol Clopidogrel Bisulfate 75 mg 12/16/21 10:00 12/16/21 09:23 Clopidogrel 75 Mg Tab PO 75 mg QDAY CHARLA Administration Dextrose 50 ml 12/14/21 13:07 Dextrose 50% In Water (25gm) 50 Ml Syringe IV Q30MIN PRN Hypoglycemia Protocol Gabapentin 100 mg 12/15/21 17:00 12/16/21 09:22 Gabapentin 100 Mg Cap PO 100 mg DAILY CHARLA Administration Heparin Sodium (Porcine) 1,000 unit 12/16/21 10:11 12/16/21 11:14 Heparin 10,000 Units/10 Ml Vial IV 1,000 unit CHELSEA PRN Administration hemodialysis Heparin Sodium (Porcine) 2,000 unit 12/16/21 10:11 12/16/21 10:41 Heparin 10,000 Units/10 Ml Vial IV 2,000 unit CHELSEA PRN Administration hemodialysis Hydromorphone HCl 0.5 mg 12/14/21 22:16 12/15/21 15:56 Hydromorphone 1 Mg/1 Ml Inj IV 0.5 mg Q1H PRN Administration Pain , Severe (7-10) Sodium Chloride 100 mls @ 999 mls/hr 12/16/21 08:44 Nacl 0.9% IV CHELSEA PRN Hypotension Insulin Glargine 15 units 12/15/21 22:00 12/16/21 21:16 Insulin Glargine 100 Units/Ml SUB-Q 15 units QHS CHARLA Administration Insulin Human Lispro 0 unit 12/14/21 15:00 12/17/21 05:28 Insulin Lispro 100 Unit/Ml SUB-Q Not Given Q6HR [facility] Protocol Lorazepam 1 mg 12/14/21 22:16 12/16/21 20:03 Lorazepam 2 Mg/Ml Vial IV 1 mg Q4H PRN Administration Agitation Midodrine 10 mg 12/14/21 17:00 12/17/21 07:38 Midodrine 10 Mg Tab PO 10 mg TID@0800,1200,1600 CHARLA Administration Miscellaneous Medication 210 mg 12/15/21 10:00 Ferric Citrate (Nf) PO QDAY CHARLA Ondansetron HCl 4 mg 12/14/21 13:07 Ondansetron 4 Mg/2 Ml Inj IV Q8H PRN Nausea And Vomiting Pantoprazole Sodium 40 mg 12/15/21 10:00 12/16/21 09:22 Pantoprazole 40 Mg Tab PO 40 mg QDAY CHARLA Administration Sevelamer Carbonate 800 mg 12/14/21 17:00 12/17/21 07:39 Sevelamer Carbonate 800 Mg Tab PO 800 mg TIDWM CHARLA Administration Sodium Chloride 10 ml 12/14/21 22:00 12/16/21 21:15 Sodium Chloride 0.9% 10 Ml Flush Syringe IV 10 ml BID CHARLA Administration Sodium Chloride 10 ml 12/14/21 14:16 Sodium Chloride 0.9% 10 Ml Flush Syringe IV PRN PRN LINE FLUSH
[2021-12-17] MEDS: CLOPIDOGREL 75 MG TAB PO SCH (09:19)
[2021-12-17] MEDS: APIXABAN 5 MG TAB PO SCH ×2 (09:19→22:21)
[2021-12-17] MEDS: GABAPENTIN 100 MG CAP PO SCH (09:20)
[2021-12-17] MEDS: PANTOPRAZOLE 40 MG TAB PO SCH (09:20)
--- NOTE | 2021-12-17 10:34 | Progress Note ---
<MICHELE PARSONS - Last Filed: 12/17/21 16:44> Assessment and Plan Assessment and plan: This is a 36-year-old female with known past medical history of ESRD on HD(M,W,F), Obesity, DM complicated by Peripheral Neuropathy, PVD, bilateral toes amputation, and recent LLE thrombectomy with stent placement admitted for acute limb ischemia of the left lower extremity s/p EKOS thrombolysis catheter placement. Hospital Course to Date: 12/15: Remains on thrombolytic therapy, TPA and heparin, via EKOS catheter. Patient still on severe pain from LLE, Q1hr PRN pain medication ordered. LLE is cold to touch with no palpable pulses. Plan to take patient's back to the [facility] today for EKOS removal and further vascular intervention. Emergent HD overnight due to hyperkalemia with ECG changes, 1L removed. 12/16: s/p removal of Left Lower Extremity EKOS Thrombolysis Catheter and diagnostic Left Lower Extremity Angiogram. Patient is stable this am, on 2L NC, c/p of mild pain. Continue PRN analagesia for pain control. On Eliquis and Plavix per Vascular Surgery. Patient had HD overnight, plan for emergent HD again today due to hyperkalemia this am, repeat BMP post treatment. PT/OT eval and treat ordered. 12/17: Stable on current pain regimen. s/p emergent HD yesterday, hyperkalemia improved. Continue HD per Nephro. LLE posterior tibial pulse appreciated with a doppler. PT/OT eval pending. Patient is stable for transfer to Telemetry. Assessment and Plan #Acute Limb Ischemia of Left Lower Extremity #Arterial Occlusion #Diabetic Neuropathy #Peripheral Vascular Disease(PVD) - H/o recent LLE thrombectomy with stent placement - Presented with LLE pain and coldness - Arterial ultrasound demonstrates popliteal and infrapopliteal arterial occlusion. - Vascular Surgery consulted, appreciate recommendations - 12/14 s/p EKOS thrombolysis catheter placement in the left popliteal artery - s/p removal of Left Lower Extremity EKOS Thrombolysis Catheter and diagnostic Left Lower Extremity Angiogram - Now on Eliquis and Plavix - Per vascular Surgery- post revascularization, patient will need to be on antiplatelet therapy and anticoagulation for life. #End Stage Renal Disease(ESRD) on HD #Hyperkalemia - Nephrology on consult, appreciated recommendation - Emergent HD yesterday due to high K, K improved today - Continue HD per Nephro - Strict intake and output - Avoid nephrotoxic medications; Renally dose medications - Monitor and replace electrolytes as needed #Uncontrolled DM - Continue SSI - Lantus added Qhs - Avoid Hypoglycemia #Acute Pain vs Neuropathic pain - most likely from limb ischemia - Gabapentin resumed - Continue PRN Analgesia for pain control - Early ambulation/activity as tolerated when okayed by Vascular Surgery - PT/OT eval and treat #GI/DVT Prophylaxis - PPI- Protonix - On Eliquis #Advance Care Planning - Disease education conducted, care plan discussed, diagnoses discussed, prognosis discussed. Patient acknowledges understanding and agreement with care plan The high probability of a clinically significant, sudden or life threatening deterioration of the [multiple] system(s) required my full and direct attention, intervention and personal management. The aggregate critical care time was [60] minutes. This time is in addition to time spent performing reported procedures but includes the following: [x] Data Review and interpretation [x] Patient assessment and monitoring of vital signs [x] Documentation [x] Medication orders and management Disposition Plan: ICU Total Time Spent with Patient (Minutes): 60 History Interval history: Patient seen and examined at the bedside. Fully AAO, on 2L NC, pain is stable on current PRN analgesia. LLE is tender to touch but warm to touch, Lt. posterior tibial appreciated with a doppler. Rt. groin site is dry and intact, no complications noted. Hospitalist Physical - Constitutional Vitals: Temp Pulse Resp BP Pulse Ox 98.6 F 109 H 24 97/61 97 12/17/21 03:17 12/17/21 08:30 12/17/21 08:30 12/17/21 08:30 12/17/21 08:16 General appearance: Present: no acute distress, obese - EENT Eyes: Present: PERRL, EOM intact ENT: hearing intact - Neck Neck: Present: normal ROM - Respiratory Respiratory effort: normal - Cardiovascular Rhythm: regular Heart Sounds: Present: S1 & S2 - Extremities Extremities: abnormal (Bilateral toes amputation, LLE ischemia) Extremity abnormal: edema, other - Peripheral Assessment Generalized Edema Type: Non-pitting Edema Degree: 2+ Capillary Refill: < 3 seconds Skin Temperature: Warm Peripheral Pulses: abnormal (LLE + posterior tibial pulse with doppler. RLE + pedal and posterior tibial pulse) - Abdominal General gastrointestinal: soft, non-distended, normal bowel sounds - Integumentary Integumentary: Present: warm, dry - Psychiatric Psychiatric: appropriate mood/affect, cooperative - Neurologic Neurologic: moves all extremities - Allied Health Allied health notes reviewed: nursing, case management Results - Labs CBC & Chem 7: 12/16/21 04:19 12/17/21 04:16 Labs: Laboratory Last Values WBC 8.2 K/mm3 (4.5-11.0) 12/16/21 04:19 RBC 5.29 M/mm3 (3.65-5.03) H 12/16/21 04:19 Hgb 14.8 gm/dl (10.1-14.3) H 12/16/21 04:19 Hct 46.4 % (30.3-42.9) H 12/16/21 04:19 MCV 88 fl (79-97) 12/16/21 04:19 MCH 28 pg (28-32) 12/16/21 04:19 MCHC 32 % (30-34) 12/16/21 04:19 RDW 20.5 % (13.2-15.2) H 12/16/21 04:19 Plt Count 175 K/mm3 (140-440) 12/16/21 04:19 Lymph % (Auto) 12.9 % (13.4-35.0) L 12/15/21 10:27 Branch % (Auto) 11.5 % (0.0-7.3) H 12/15/21 10: Eos % (Auto) 0.0 % (0.0-4.3) 12/15/21 10:27 Baso % (Auto) 0.2 % (0.0-1.8) 12/15/21 10:27 Lymph # (Auto) 1.0 K/mm3 (1.2-5.4) L 12/15/21 10:27 Branch # (Auto) 0.9 K/mm3 (0.0-0.8) H 12/15/21 10:27 Eos # (Auto) 0.0 K/mm3 (0.0-0.4) 12/15/21 10: Baso # (Auto) 0.0 K/mm3 (0.0-0.1) 12/15/21 10:27 Add Manual Diff Complete 12/14/21 23:33 Total Counted 100 12/14/21 23:33 Seg Neutrophils % 75.4 % (40.0-70.0) H 12/15/21 10:27 Seg Neuts % (Manual) 97.0 % (40.0-70.0) H 12/14/21 23:33 Band Neutrophils % 0 % 12/14/21 23:33 Lymphocytes % (Manual) 3.0 % (13.4-35.0) L 12/14/21 23:33 Reactive Lymphs % (Man) 0 % 12/14/21 23:33 Monocytes % (Manual) 0 % (0.0-7.3) 12/14/21 23:33 Eosinophils % (Manual) 0 % (0.0-4.3) 12/14/21 23: Basophils % (Manual) 0 % (0.0-1.8) 12/14/21 23: Metamyelocytes % 0 % 12/14/21 23: Myelocytes % 0 % 12/14/21 23: Promyelocytes % 0 % 12/14/21 23: Blast Cells % 0 % 12/14/21 23:33 Nucleated RBC % Not Reportable 12/14/21 23:33 Seg Neutrophils # 5.9 K/mm3 (1.8-7.7) 12/15/21 10:27 Seg Neutrophils # Man 8.1 K/mm3 (1.8-7.7) H 12/14/21 23:33 Band Neutrophils # 0.0 K/mm3 12/14/21 23:33 Lymphocytes # (Manual) 0.2 K/mm3 (1.2-5.4) L 12/14/21 23:33 Abs React Lymphs (Man) 0.0 K/mm3 12/14/21 23:33 Monocytes # (Manual) 0.0 K/mm3 (0.0-0.8) 12/14/21 23:33 Eosinophils # (Manual) 0.0 K/mm3 (0.0-0.4) 12/14/21 23:33 Basophils # (Manual) 0.0 K/mm3 (0.0-0.1) 12/14/21 23: Metamyelocytes # 0.0 K/mm3 12/14/21 23:33 Myelocytes # 0.0 K/mm3 12/14/21 23:33 Promyelocytes # 0.0 K/mm3 12/14/21 23:33 Blast Cells # 0.0 K/mm3 12/14/21 23:33 WBC Morphology Not Reportable 12/14/21 23:33 Hypersegmented Neuts Not Reportable 12/14/21 23:33 Hyposegmented Neuts Not Reportable 12/14/21 23:33 Hypogranular Neuts Not Reportable 12/14/21 23:33 Smudge Cells Not Reportable 12/14/21 23:33 Toxic Granulation Not Reportable 12/14/21 23:33 Toxic Vacuolation Not Reportable 12/14/21 23:33 Dohle Bodies Not Reportable 12/14/21 23:33 Pelger-Huet Anomaly Not Reportable 12/14/21 23:33 Ruben Rods Not Reportable 12/14/21 23:33 Platelet Estimate Consistent w auto 12/14/21 23:33 Clumped Platelets Not Reportable 12/14/21 23:33 Plt Clumps, EDTA Not Reportable 12/14/21 23:33 Large Platelets Not Reportable 12/14/21 23:33 Giant Platelets Not Reportable 12/14/21 23:33 Platelet Satelliting Not Reportable 12/14/21 23:33 Plt Morphology Comment Not Reportable 12/14/21 23:33 RBC Morphology Not Reportable 12/14/21 23:33 Dimorphic RBCs Not Reportable 12/14/21 23:33 Polychromasia Not Reportable 12/14/21 23:33 Hypochromasia Not Reportable 12/14/21 23:33 Poikilocytosis Not Reportable 12/14/21 23:33 Anisocytosis 1+ 12/14/21 23:33 Microcytosis Not Reportable 12/14/21 23:33 Macrocytosis Not Reportable 12/14/21 23:33 Spherocytes Not Reportable 12/14/21 23:33 Pappenheimer Bodies Not Reportable 12/14/21 23:33 Sickle Cells Not Reportable 12/14/21 23:33 Target Cells Not Reportable 12/14/21 23:33 Tear Drop Cells Not Reportable 12/14/21 23:33 Ovalocytes Not Reportable 12/14/21 23:33 Helmet Cells Not Reportable 12/14/21 23:33 [place] Bodies Not Reportable 12/14/21 23:33 [place] Rings Not Reportable 12/14/21 23:33 [place] Cells Not Reportable 12/14/21 23:33 Bite Cells Not Reportable 12/14/21 23:33 Crenated Cell Not Reportable 12/14/21 23:33 Elliptocytes Not Reportable 12/14/21 23:33 Acanthocytes (Spur) Not Reportable 12/14/21 23:33 Rouleaux Not Reportable 12/14/21 23:33 Hemoglobin C Crystals Not Reportable 12/14/21 23:33 Schistocytes Not Reportable 12/14/21 23:33 Malaria parasites Not Reportable 12/14/21 23:33 Rojas Bodies Not Reportable 12/14/21 23:33 Hem Pathologist Commnt No 12/14/21 23:33 PT 15.9 Sec. (12.2-14.9) H 12/14/21 16:50 INR 1.14 (0.87-1.13) H 12/14/21 16:50 APTT > 240.0 Sec. (24.2-36.6) H* 12/14/21 16:50 Fibrinogen 375 mg/dl (211-480) 12/15/21 10:27 Heparin Anti-Xa Level 0.10 U.I./ml (0.3-0.7) L 12/15/21 10:27 Sodium 137 mmol/L (137-145) 12/17/21 04:16 Potassium 4.9 mmol/L (3.6-5.0) 12/17/21 04:16 Chloride 97.8 mmol/L (98-107) L 12/17/21 04:16 Carbon Dioxide 24 mmol/L (22-30) 12/17/21 04:16 Anion Gap 20 mmol/L 12/17/21 04:16 BUN 38 mg/dL (7-17) H 12/17/21 04:16 Creatinine 9.8 mg/dL (0.6-1.2) H 12/17/21 04:16 Estimated GFR 5 ml/min 12/17/21 04:16 BUN/Creatinine Ratio 4 % 12/17/21 04:16 Glucose 82 mg/dL (65-100) 12/17/21 04:16 POC Glucose 109 mg/dL (70-105) H 12/17/21 05:20 Calcium 8.4 mg/dL (8.4-10.2) 12/17/21 04:16 Phosphorus 8.90 mg/dL (2.5-4.5) H 12/16/21 04:19 Magnesium 2.40 mg/dL (1.7-2.3) H 12/16/21 04:19 Total Bilirubin 0.30 mg/dL (0.1-1.2) 12/15/21 04:26 AST 11 units/L (5-40) 12/15/21 04:26 ALT 9 units/L (7-56) 12/15/21 04:26 Alkaline Phosphatase 103 units/L (35-129) 12/15/21 04:26 Total Protein 8.9 g/dL (6.3-8.2) H 12/15/21 04:26 Albumin 4.4 g/dL (3.9-5) 12/15/21 04:26 Albumin/Globulin Ratio 1.0 % 12/15/21 04:26 Hepatitis A IgM Ab Non-reactive (NonReactive) 12/15/21 04:26 Hep Bs Antigen Non-reactive (Negative) 12/15/21 04:26 Hep B Core IgM Ab Non-reactive (NonReactive) 12/15/21 04:26 Hepatitis C Antibody Non-reactive (NonReactive) 12/15/21 04:26 Blood Type O POSITIVE 12/14/21 15:00 Antibody Screen Negative 12/14/21 15:00 Pichardo/IV: Voiding Method Incontinent Active Medications - Current Medications Current Medications: Generic Name Dose Route Start Last Admin Trade Name Freq PRN Reason Stop Dose Admin Acetaminophen 650 mg 12/14/21 13:07 Acetaminophen 325 Mg Tab PO Q4H PRN Fever >100.5/MIJARES Hydrocodone Bitart/Acetaminophen 1 each 12/14/21 17:35 12/16/21 08:49 Hydrocodone/Acetaminophen 5-325 Mg Tab PO 1 each Q4H PRN Administration Pain, Mild (1-3) Hydrocodone Bitart/Acetaminophen 2 each 12/14/21 17:37 12/16/21 23:47 Hydrocodone/Acetaminophen 5-325 Mg Tab PO 2 each Q4H PRN Administration Pain, Moderate (4-6) Albuterol 2.5 mg 12/14/21 13:07 Albuterol 2.5 Mg/3 Ml Nebu IH Q4HRT PRN Shortness Of Breath Apixaban 5 mg 12/15/21 17:00 12/17/21 09:19 Apixaban 5 Mg Tab PO 5 mg Q12HR CHARLA Administration Protocol Clopidogrel Bisulfate 75 mg 12/16/21 10:00 12/17/21 09:19 Clopidogrel 75 Mg Tab PO 75 mg QDAY CHARLA Administration Dextrose 50 ml 12/14/21 13:07 Dextrose 50% In Water (25gm) 50 Ml Syringe IV Q30MIN PRN Hypoglycemia Protocol Gabapentin 100 mg 12/15/21 17:00 12/17/21 09:20 Gabapentin 100 Mg Cap PO 100 mg DAILY CHARLA Administration Heparin Sodium (Porcine) 1,000 unit 12/16/21 10:11 12/16/21 11:14 Heparin 10,000 Units/10 Ml Vial IV 1,000 unit CHELSEA PRN Administration hemodialysis Heparin Sodium (Porcine) 2,000 unit 12/16/21 10:11 12/16/21 10:41 Heparin 10,000 Units/10 Ml Vial IV 2,000 unit CHELSEA PRN Administration hemodialysis Hydromorphone HCl 0.5 mg 12/14/21 22:16 12/15/21 15:56 Hydromorphone 1 Mg/1 Ml Inj IV 0.5 mg Q1H PRN Administration Pain , Severe (7-10) Sodium Chloride 100 mls @ 999 mls/hr 12/16/21 08:44 Nacl 0.9% IV CHELSEA PRN Hypotension Insulin Glargine 15 units 12/15/21 22:00 12/16/21 21:16 Insulin Glargine 100 Units/Ml SUB-Q 15 units QHS CHARLA Administration Insulin Human Lispro 0 unit 12/14/21 15:00 12/17/21 05:28 Insulin Lispro 100 Unit/Ml SUB-Q Not Given Q6HR [facility] Protocol Lorazepam 1 mg 12/14/21 22:16 12/16/21 20:03 Lorazepam 2 Mg/Ml Vial IV 1 mg Q4H PRN Administration Agitation Midodrine 10 mg 12/14/21 17:00 12/17/21 07:38 Midodrine 10 Mg Tab PO 10 mg TID@0800,1200,1600 CHARLA Administration Miscellaneous Medication 210 mg 12/15/21 10:00 Ferric Citrate (Nf) PO QDAY CHARLA Ondansetron HCl 4 mg 12/14/21 13:07 12/17/21 09:20 Ondansetron 4 Mg/2 Ml Inj IV 4 mg Q8H PRN Administration Nausea And Vomiting Pantoprazole Sodium 40 mg 12/15/21 10:00 12/17/21 09:20 Pantoprazole 40 Mg Tab PO 40 mg QDAY CHARLA Administration Sevelamer Carbonate 800 mg 12/14/21 17:00 12/17/21 07:39 Sevelamer Carbonate 800 Mg Tab PO 800 mg TIDWM CHARLA Administration Sodium Chloride 10 ml 12/14/21 22:00 12/17/21 09:22 Sodium Chloride 0.9% 10 Ml Flush Syringe IV 10 ml BID CHARLA Administration Sodium Chloride 10 ml 12/14/21 14:16 Sodium Chloride 0.9% 10 Ml Flush Syringe IV PRN PRN LINE FLUSH <RAMONE RENDON - Last Filed: 12/18/21 07:05> Assessment and Plan Assessment and plan: I saw and evaluated the patient. I agree with the findings and the plan of care as documented in the Nurse Practitioner's~note, with the following corrections and additions. Hospitalist Physical - Constitutional Vitals: Temp Pulse Resp BP Pulse Ox 98.6 F 93 H 18 127/55 96 12/18/21 03:58 12/18/21 03:58 12/18/21 03:58 12/18/21 03:58 12/18/21 03:58 Results - Labs CBC & Chem 7: 12/18/21 05:35 12/18/21 05:35 Labs: Laboratory Last Values WBC 8.2 K/mm3 (4.5-11.0) 12/16/21 04:19 RBC 5.29 M/mm3 (3.65-5.03) H 12/16/21 04:19 Hgb 14.0 gm/dl (10.1-14.3) 12/18/21 05:35 Hct 45.1 % (30.3-42.9) H 12/18/21 05:35 MCV 88 fl (79-97) 12/16/21 04:19 MCH 28 pg (28-32) 12/16/21 04:19 MCHC 32 % (30-34) 12/16/21 04:19 RDW 20.5 % (13.2-15.2) H 12/16/21 04:19 Plt Count 165 K/mm3 (140-440) 12/18/21 05:35 Lymph % (Auto) 12.9 % (13.4-35.0) L 12/15/21 10:27 Branch % (Auto) 11.5 % (0.0-7.3) H 12/15/21 10:27 Eos % (Auto) 0.0 % (0.0-4.3) 12/15/21 10: Baso % (Auto) 0.2 % (0.0-1.8) 12/15/21 10: Lymph # (Auto) 1.0 K/mm3 (1.2-5.4) L 12/15/21 10:27 Branch # (Auto) 0.9 K/mm3 (0.0-0.8) H 12/15/21 10:27 Eos # (Auto) 0.0 K/mm3 (0.0-0.4) 12/15/21 10: Baso # (Auto) 0.0 K/mm3 (0.0-0.1) 12/15/21 10:27 Add Manual Diff Complete 12/14/21 23:33 Total Counted 100 12/14/21 23:33 Seg Neutrophils % 75.4 % (40.0-70.0) H 12/15/21 10:27 Seg Neuts % (Manual) 97.0 % (40.0-70.0) H 12/14/21 23:33 Band Neutrophils % 0 % 12/14/21 23:33 Lymphocytes % (Manual) 3.0 % (13.4-35.0) L 12/14/21 23:33 Reactive Lymphs % (Man) 0 % 12/14/21 23:33 Monocytes % (Manual) 0 % (0.0-7.3) 12/14/21 23:33 Eosinophils % (Manual) 0 % (0.0-4.3) 12/14/21 23:33 Basophils % (Manual) 0 % (0.0-1.8) 12/14/21 23:33 Metamyelocytes % 0 % 12/14/21 23:33 Myelocytes % 0 % 12/14/21 23:33 Promyelocytes % 0 % 12/14/21 23:33 Blast Cells % 0 % 12/14/21 23:33 Nucleated RBC % Not Reportable 12/14/21 23:33 Seg Neutrophils # 5.9 K/mm3 (1.8-7.7) 12/15/21 10:27 Seg Neutrophils # Man 8.1 K/mm3 (1.8-7.7) H 12/14/21 23:33 Band Neutrophils # 0.0 K/mm3 12/14/21 23:33 Lymphocytes # (Manual) 0.2 K/mm3 (1.2-5.4) L 12/14/21 23:33 Abs React Lymphs (Man) 0.0 K/mm3 12/14/21 23:33 Monocytes # (Manual) 0.0 K/mm3 (0.0-0.8) 12/14/21 23:33 Eosinophils # (Manual) 0.0 K/mm3 (0.0-0.4) 12/14/21 23:33 Basophils # (Manual) 0.0 K/mm3 (0.0-0.1) 12/14/21 23:33 Metamyelocytes # 0.0 K/mm3 12/14/21 23:33 Myelocytes # 0.0 K/mm3 12/14/21 23:33 Promyelocytes # 0.0 K/mm3 12/14/21 23:33 Blast Cells # 0.0 K/mm3 12/14/21 23:33 WBC Morphology Not Reportable 12/14/21 23:33 Hypersegmented Neuts Not Reportable 12/14/21 23:33 Hyposegmented Neuts Not Reportable 12/14/21 23:33 Hypogranular Neuts Not Reportable 12/14/21 23:33 Smudge Cells Not Reportable 12/14/21 23:33 Toxic Granulation Not Reportable 12/14/21 23:33 Toxic Vacuolation Not Reportable 12/14/21 23:33 Dohle Bodies Not Reportable 12/14/21 23:33 Pelger-Huet Anomaly Not Reportable 12/14/21 23:33 Ruben Rods Not Reportable 12/14/21 23:33 Platelet Estimate Consistent w auto 12/14/21 23:33 Clumped Platelets Not Reportable 12/14/21 23:33 Plt Clumps, EDTA Not Reportable 12/14/21 23:33 Large Platelets Not Reportable 12/14/21 23:33 Giant Platelets Not Reportable 12/14/21 23:33 Platelet Satelliting Not Reportable 12/14/21 23:33 Plt Morphology Comment Not Reportable 12/14/21 23:33 RBC Morphology Not Reportable 12/14/21 23:33 Dimorphic RBCs Not Reportable 12/14/21 23:33 Polychromasia Not Reportable 12/14/21 23:33 Hypochromasia Not Reportable 12/14/21 23:33 Poikilocytosis Not Reportable 12/14/21 23:33 Anisocytosis 1+ 12/14/21 23:33 Microcytosis Not Reportable 12/14/21 23:33 Macrocytosis Not Reportable 12/14/21 23:33 Spherocytes Not Reportable 12/14/21 23:33 Pappenheimer Bodies Not Reportable 12/14/21 23:33 Sickle Cells Not Reportable 12/14/21 23:33 Target Cells Not Reportable 12/14/21 23:33 Tear Drop Cells Not Reportable 12/14/21 23:33 Ovalocytes Not Reportable 12/14/21 23:33 Helmet Cells Not Reportable 12/14/21 23:33 [place] Bodies Not Reportable 12/14/21 23:33 [place] Rings Not Reportable 12/14/21 23:33 [place] Cells Not Reportable 12/14/21 23:33 Bite Cells Not Reportable 12/14/21 23:33 Crenated Cell Not Reportable 12/14/21 23:33 Elliptocytes Not Reportable 12/14/21 23:33 Acanthocytes (Spur) Not Reportable 12/14/21 23:33 Rouleaux Not Reportable 12/14/21 23:33 Hemoglobin C Crystals Not Reportable 12/14/21 23:33 Schistocytes Not Reportable 12/14/21 23:33 Malaria parasites Not Reportable 12/14/21 23:33 Rojas Bodies Not Reportable 12/14/21 23:33 Hem Pathologist Commnt No 12/14/21 23:33 PT 15.9 Sec. (12.2-14.9) H 12/14/21 16:50 INR 1.14 (0.87-1.13) H 12/14/21 16:50 APTT > 240.0 Sec. (24.2-36.6) H* 12/14/21 16:50 Fibrinogen 375 mg/dl (211-480) 12/15/21 10:27 Heparin Anti-Xa Level 0.10 U.I./ml (0.3-0.7) L 12/15/21 10:27 Sodium 137 mmol/L (137-145) 12/18/21 05:35 Potassium 5.3 mmol/L (3.6-5.0) H 12/18/21 05:35 Chloride 96.5 mmol/L (98-107) L 12/18/21 05:35 Carbon Dioxide 24 mmol/L (22-30) 12/18/21 05:35 Anion Gap 22 mmol/L 12/18/21 05:35 BUN 58 mg/dL (7-17) H 12/18/21 05:35 Creatinine 12.7 mg/dL (0.6-1.2) H 12/18/21 05:35 Estimated GFR 4 ml/min 12/18/21 05:35 BUN/Creatinine Ratio 5 % 12/18/21 05:35 Glucose 208 mg/dL (65-100) H 12/18/21 05:35 POC Glucose 186 mg/dL (70-105) H 12/17/21 21:23 Calcium 8.2 mg/dL (8.4-10.2) L 12/18/21 05:35 Phosphorus 8.10 mg/dL (2.5-4.5) H 12/18/21 05:35 Magnesium 2.60 mg/dL (1.7-2.3) H 12/18/21 05:35 Total Bilirubin 0.30 mg/dL (0.1-1.2) 12/15/21 04:26 AST 11 units/L (5-40) 12/15/21 04:26 ALT 9 units/L (7-56) 12/15/21 04:26 Alkaline Phosphatase 103 units/L (35-129) 12/15/21 04:26 Total Protein 8.9 g/dL (6.3-8.2) H 12/15/21 04:26 Albumin 4.4 g/dL (3.9-5) 12/15/21 04:26 Albumin/Globulin Ratio 1.0 % 12/15/21 04:26 Hepatitis A IgM Ab Non-reactive (NonReactive) 12/15/21 04:26 Hep Bs Antigen Non-reactive (Negative) 12/15/21 04:26 Hep B Core IgM Ab Non-reactive (NonReactive) 12/15/21 04:26 Hepatitis C Antibody Non-reactive (NonReactive) 12/15/21 04:26 Blood Type O POSITIVE 12/14/21 15:00 Antibody Screen Negative 12/14/21 15:00 Pichardo/IV: Voiding Method Incontinent Active Medications - Current Medications Current Medications: Generic Name Dose Route Start Last Admin Trade Name Freq PRN Reason Stop Dose Admin Acetaminophen 650 mg 12/14/21 13:07 Acetaminophen 325 Mg Tab PO Q4H PRN Fever >100.5/MIJARES Hydrocodone Bitart/Acetaminophen 1 each 12/17/21 11:30 Hydrocodone/Acetaminophen 5-325 Mg Tab PO Q6H PRN Pain, Mild (1-3) Hydrocodone Bitart/Acetaminophen 2 each 12/17/21 11:30 12/18/21 00:21 Hydrocodone/Acetaminophen 5-325 Mg Tab PO 2 each Q6H PRN Administration Pain, Moderate (4-6) Albuterol 2.5 mg 12/14/21 13:07 Albuterol 2.5 Mg/3 Ml Nebu IH Q4HRT PRN Shortness Of Breath Apixaban 5 mg 12/15/21 17:00 12/17/21 22:21 Apixaban 5 Mg Tab PO 5 mg Q12HR CHARLA Administration Protocol Clopidogrel Bisulfate 75 mg 12/16/21 10:00 12/17/21 09:19 Clopidogrel 75 Mg Tab PO 75 mg QDAY CHARLA Administration Dextrose 50 ml 12/14/21 13:07 Dextrose 50% In Water (25gm) 50 Ml Syringe IV Q30MIN PRN Hypoglycemia Protocol Gabapentin 100 mg 12/15/21 17:00 12/17/21 09:20 Gabapentin 100 Mg Cap PO 100 mg DAILY CHARLA Administration Heparin Sodium (Porcine) 1,000 unit 12/16/21 10:11 12/16/21 11:14 Heparin 10,000 Units/10 Ml Vial IV 1,000 unit CHELSEA PRN Administration hemodialysis Heparin Sodium (Porcine) 2,000 unit 12/16/21 10:11 12/16/21 10:41 Heparin 10,000 Units/10 Ml Vial IV 2,000 unit CHELSEA PRN Administration hemodialysis Hydromorphone HCl 0.5 mg 12/17/21 11:30 12/17/21 17:24 Hydromorphone 1 Mg/1 Ml Inj IV 0.5 mg Q4H PRN Administration Pain , Severe (7-10) Sodium Chloride 100 mls @ 999 mls/hr 12/16/21 08:44 Nacl 0.9% IV CHELSEA PRN Hypotension Insulin Glargine 15 units 12/15/21 22:00 12/17/21 22:56 Insulin Glargine 100 Units/Ml SUB-Q 15 units QHS CHARLA Administration Insulin Human Lispro 0 unit 12/14/21 15:00 12/18/21 00:46 Insulin Lispro 100 Unit/Ml SUB-Q 3 unit Q6HR [facility] Administration Protocol Midodrine 10 mg 12/14/21 17:00 12/17/21 16:37 Midodrine 10 Mg Tab PO Not Given TID@0800,1200,1600 [facility] Miscellaneous Medication 210 mg 12/15/21 10:00 Ferric Citrate (Nf) PO QDAY [facility] Ondansetron HCl 4 mg 12/14/21 13:07 12/17/21 09:20 Ondansetron 4 Mg/2 Ml Inj IV 4 mg Q8H PRN Administration Nausea And Vomiting Pantoprazole Sodium 40 mg 12/15/21 10:00 12/17/21 09:20 Pantoprazole 40 Mg Tab PO 40 mg QDAY CHARLA Administration Sevelamer Carbonate 800 mg 12/14/21 17:00 12/17/21 17:38 Sevelamer Carbonate 800 Mg Tab PO 800 mg TIDWM CHARLA Administration Sodium Chloride 10 ml 12/14/21 22:00 12/17/21 22:25 Sodium Chloride 0.9% 10 Ml Flush Syringe IV 10 ml BID CHARLA Administration Sodium Chloride 10 ml 12/14/21 14:16 Sodium Chloride 0.9% 10 Ml Flush Syringe IV PRN PRN LINE FLUSH
[2021-12-17] MEDS ORDERED: HYDROmorphone 1 MG/1 ML INJ IV PRN (11:30)
[2021-12-17] MEDS ORDERED: HYDROcodone/ACETAMINOPHEN 5-325 MG TAB PO PRN ×2 (11:30)
--- NOTE | 2021-12-17 14:18 | Progress Note ---
Subjective Date of service: 12/17/21 Principal diagnosis: Left leg arterial thrombus Objective Vital Signs - 12hr 12/17/21 12/17/21 12/17/21 02:30 02:36 02:46 Temperature Pulse Rate 85 82 Pulse Rate [ Bilateral Dorsalis Pedis/ Posterior] Pulse Rate [ From Monitor] Pulse Rate [ Left Popliteal] Pulse Rate [ Right Popliteal ] Respiratory 12 16 21 Rate Blood Pressure 114/77 114/77 O2 Sat by Pulse 97 97 97 Oximetry 12/17/21 12/17/21 12/17/21 03:00 03:16 03:17 Temperature 98.6 F Pulse Rate 82 84 Pulse Rate [ Bilateral Dorsalis Pedis/ Posterior] Pulse Rate [ From Monitor] Pulse Rate [ Left Popliteal] Pulse Rate [ Right Popliteal ] Respiratory 18 11 L Rate Blood Pressure 105/72 105/72 O2 Sat by Pulse 95 95 Oximetry 12/17/21 12/17/21 12/17/21 03:30 03:46 03:50 Temperature Pulse Rate 85 85 85 Pulse Rate [ Bilateral Dorsalis Pedis/ Posterior] Pulse Rate [ From Monitor] Pulse Rate [ Left Popliteal] Pulse Rate [ Right Popliteal ] Respiratory 11 L 11 L 16 Rate Blood Pressure 105/72 105/72 O2 Sat by Pulse 94 94 97 Oximetry 12/17/21 12/17/21 12/17/21 04:00 04:16 04:30 Temperature Pulse Rate 84 86 84 Pulse Rate [ Bilateral Dorsalis Pedis/ Posterior] Pulse Rate [ From Monitor] Pulse Rate [ Left Popliteal] Pulse Rate [ Right Popliteal ] Respiratory 12 12 11 L Rate Blood Pressure 105/71 105/71 105/71 O2 Sat by Pulse 92 93 96 Oximetry 12/17/21 12/17/21 12/17/21 04:46 05:00 05:10 Temperature Pulse Rate 85 81 81 Pulse Rate [ Bilateral Dorsalis Pedis/ Posterior] Pulse Rate [ From Monitor] Pulse Rate [ Left Popliteal] Pulse Rate [ Right Popliteal ] Respiratory 12 14 Rate Blood Pressure 105/71 98/58 O2 Sat by Pulse 95 97 97 Oximetry 12/17/21 12/17/21 12/17/21 05:16 05:30 05:46 Temperature Pulse Rate 85 82 85 Pulse Rate [ Bilateral Dorsalis Pedis/ Posterior] Pulse Rate [ From Monitor] Pulse Rate [ Left Popliteal] Pulse Rate [ Right Popliteal ] Respiratory 17 13 11 L Rate Blood Pressure 98/58 98/58 98/58 O2 Sat by Pulse 95 96 96 Oximetry 12/17/21 12/17/21 12/17/21 06:00 06:16 06:30 Temperature Pulse Rate 84 83 85 Pulse Rate [ Bilateral Dorsalis Pedis/ Posterior] Pulse Rate [ From Monitor] Pulse Rate [ Left Popliteal] Pulse Rate [ Right Popliteal ] Respiratory 12 12 13 Rate Blood Pressure 93/62 93/62 93/62 O2 Sat by Pulse 96 97 95 Oximetry 12/17/21 12/17/21 12/17/21 06:46 07:00 07:16 Temperature Pulse Rate 83 84 84 Pulse Rate [ Bilateral Dorsalis Pedis/ Posterior] Pulse Rate [ From Monitor] Pulse Rate [ Left Popliteal] Pulse Rate [ Right Popliteal ] Respiratory 12 12 11 L Rate Blood Pressure 93/62 98/51 98/51 O2 Sat by Pulse 96 97 98 Oximetry 12/17/21 12/17/21 12/17/21 07:30 07:46 08:00 Temperature 98.4 F Pulse Rate 85 91 H 96 H Pulse Rate [ 96 H Bilateral Dorsalis Pedis/ Posterior] Pulse Rate [ 96 H From Monitor] Pulse Rate [ 92 H Left Popliteal] Pulse Rate [ 92 H Right Popliteal ] Respiratory 12 11 L 15 Rate Blood Pressure 98/51 98/51 97/61 O2 Sat by Pulse 96 97 96 Oximetry 12/17/21 12/17/21 12/17/21 08:16 08:30 08:46 Temperature Pulse Rate 97 H 109 H 100 H Pulse Rate [ Bilateral Dorsalis Pedis/ Posterior] Pulse Rate [ From Monitor] Pulse Rate [ Left Popliteal] Pulse Rate [ Right Popliteal ] Respiratory 13 24 12 Rate Blood Pressure 97/61 97/61 97/61 O2 Sat by Pulse 97 Oximetry 12/17/21 12/17/21 12/17/21 09:00 09:16 09:30 Temperature Pulse Rate 97 H 93 H 103 H Pulse Rate [ Bilateral Dorsalis Pedis/ Posterior] Pulse Rate [ From Monitor] Pulse Rate [ Left Popliteal] Pulse Rate [ Right Popliteal ] Respiratory 13 15 Rate Blood Pressure 97/61 97/61 97/61 O2 Sat by Pulse Oximetry 12/17/21 12/17/21 12/17/21 09:46 10:00 10:16 Temperature Pulse Rate 100 H 97 H 98 H Pulse Rate [ Bilateral Dorsalis Pedis/ Posterior] Pulse Rate [ From Monitor] Pulse Rate [ Left Popliteal] Pulse Rate [ Right Popliteal ] Respiratory Rate Blood Pressure 114/69 125/82 125/82 O2 Sat by Pulse 28 L Oximetry 12/17/21 12/17/21 12/17/21 10:30 10:46 11:00 Temperature Pulse Rate 98 H 96 H 94 H Pulse Rate [ Bilateral Dorsalis Pedis/ Posterior] Pulse Rate [ From Monitor] Pulse Rate [ Left Popliteal] Pulse Rate [ Right Popliteal ] Respiratory 15 13 11 L Rate Blood Pressure 125/82 125/82 123/78 O2 Sat by Pulse 95 92 94 Oximetry 12/17/21 12/17/21 12/17/21 11:16 11:30 11:46 Temperature Pulse Rate 95 H 94 H 93 H Pulse Rate [ Bilateral Dorsalis Pedis/ Posterior] Pulse Rate [ From Monitor] Pulse Rate [ Left Popliteal] Pulse Rate [ Right Popliteal ] Respiratory 12 12 12 Rate Blood Pressure 123/78 123/78 123/78 O2 Sat by Pulse 93 92 93 Oximetry 12/17/21 12/17/21 12/17/21 12:00 12:16 12:30 Temperature 98 F Pulse Rate 96 H 97 H 106 H Pulse Rate [ 96 H Bilateral Dorsalis Pedis/ Posterior] Pulse Rate [ 96 H From Monitor] Pulse Rate [ Left Popliteal] Pulse Rate [ Right Popliteal ] Respiratory 12 14 16 Rate Blood Pressure 112/69 112/69 112/69 O2 Sat by Pulse 92 91 93 Oximetry CBC and BMP: 12/16/21 04:19 12/17/21 04:16 ABG, PT/INR, D-dimer: PT/INR, D-dimer PT 15.9 Sec. (12.2-14.9) H 12/14/21 16:50 INR 1.14 (0.87-1.13) H 12/14/21 16:50 Abnormal lab findings: Abnormal Labs 12/14/21 12/14/21 12/14/21 11:46 11:46 14:10 RBC 5.55 H Hgb 16.0 H Hct 48.1 H MCH RDW 20.9 H Lymph % (Auto) Stark % (Auto) 10.6 H Lymph # (Auto) Stark # (Auto) Seg Neutrophils % Seg Neuts % (Manual) Lymphocytes % (Manual) Seg Neutrophils # Seg Neutrophils # Man Lymphocytes # (Manual) PT INR APTT Fibrinogen Heparin Anti-Xa Level Sodium 135 L Potassium 7.0 H* 5.2 H D Chloride 91.4 L 92.9 L Carbon Dioxide BUN 65 H 66 H Creatinine 13.7 H 13.7 H Glucose 207 H 136 H POC Glucose Calcium Phosphorus Magnesium Total Protein 8.6 H 12/14/21 12/14/21 12/14/21 16:02 16:50 16:50 RBC 5.13 H Hgb Hct 44.3 H MCH RDW 20.6 H Lymph % (Auto) Stark % (Auto) 11.7 H Lymph # (Auto) Stark # (Auto) Seg Neutrophils % Seg Neuts % (Manual) Lymphocytes % (Manual) Seg Neutrophils # Seg Neutrophils # Man Lymphocytes # (Manual) PT INR APTT Fibrinogen Heparin Anti-Xa Level Sodium Potassium 5.1 H Chloride 93.3 L Carbon Dioxide BUN 68 H Creatinine 14.3 H Glucose 158 H POC Glucose 54 L Calcium Phosphorus Magnesium Total Protein 12/14/21 12/14/21 12/14/21 16:50 17:35 23:28 RBC Hgb Hct MCH RDW Lymph % (Auto) Stark % (Auto) Lymph # (Auto) Stark # (Auto) Seg Neutrophils % Seg Neuts % (Manual) Lymphocytes % (Manual) Seg Neutrophils # Seg Neutrophils # Man Lymphocytes # (Manual) PT 15.9 H INR 1.14 H APTT > 240.0 H* Fibrinogen 522 H Heparin Anti-Xa Level Sodium Potassium Chloride Carbon Dioxide BUN Creatinine Glucose POC Glucose 122 H 280 H Calcium Phosphorus Magnesium Total Protein 12/14/21 12/14/21 12/15/21 23:33 23:33 00:09 RBC 5.90 H Hgb 16.4 H Hct 52.9 H D MCH RDW 21.2 H Lymph % (Auto) Stark % (Auto) Lymph # (Auto) Stark # (Auto) Seg Neutrophils % Seg Neuts % (Manual) 97.0 H Lymphocytes % (Manual) 3.0 L Seg Neutrophils # Seg Neutrophils # Man 8.1 H Lymphocytes # (Manual) 0.2 L PT INR APTT Fibrinogen 546 H Heparin Anti-Xa Level 0.12 L Sodium 133 L Potassium 8.1 H* D Chloride 87.7 L Carbon Dioxide 18 L BUN 82 H Creatinine 14.1 H Glucose 271 H POC Glucose Calcium Phosphorus Magnesium Total Protein 12/15/21 12/15/21 12/15/21 04:24 04:24 04:26 RBC 6.14 H Hgb 16.4 H Hct 54.0 H MCH 27 L RDW 20.8 H Lymph % (Auto) 7.6 L Stark % (Auto) Lymph # (Auto) 0.8 L Stark # (Auto) Seg Neutrophils % 88.0 H Seg Neuts % (Manual) Lymphocytes % (Manual) Seg Neutrophils # 8.7 H Seg Neutrophils # Man Lymphocytes # (Manual) PT INR APTT Fibrinogen Heparin Anti-Xa Level 0.11 L Sodium 135 L Potassium 5.5 H D Chloride 92.1 L Carbon Dioxide 20 L BUN 40 H Creatinine 9.0 H Glucose 273 H POC Glucose Calcium Phosphorus Magnesium Total Protein 8.9 H 12/15/21 12/15/21 12/15/21 06:31 10:27 10:27 RBC 5.70 H Hgb 15.9 H Hct 50.3 H MCH RDW 20.9 H Lymph % (Auto) 12.9 L Stark % (Auto) 11.5 H Lymph # (Auto) 1.0 L Stark # (Auto) 0.9 H Seg Neutrophils % 75.4 H Seg Neuts % (Manual) Lymphocytes % (Manual) Seg Neutrophils # Seg Neutrophils # Man Lymphocytes # (Manual) PT INR APTT Fibrinogen Heparin Anti-Xa Level 0.10 L Sodium Potassium Chloride Carbon Dioxide BUN Creatinine Glucose POC Glucose 229 H Calcium Phosphorus Magnesium Total Protein 12/15/21 12/15/21 12/15/21 10:27 11:44 16:28 RBC Hgb Hct MCH RDW Lymph % (Auto) Stark % (Auto) Lymph # (Auto) Stark # (Auto) Seg Neutrophils % Seg Neuts % (Manual) Lymphocytes % (Manual) Seg Neutrophils # Seg Neutrophils # Man Lymphocytes # (Manual) PT INR APTT Fibrinogen Heparin Anti-Xa Level Sodium 136 L Potassium 5.9 H Chloride 93.8 L Carbon Dioxide BUN 41 H Creatinine 10.4 H Glucose 223 H POC Glucose 240 H 261 H Calcium Phosphorus Magnesium Total Protein 12/15/21 12/15/21 12/16/21 21:06 23:15 04:19 RBC 5.29 H Hgb 14.8 H Hct 46.4 H MCH RDW 20.5 H Lymph % (Auto) Stark % (Auto) Lymph # (Auto) Stark # (Auto) Seg Neutrophils % Seg Neuts % (Manual) Lymphocytes % (Manual) Seg Neutrophils # Seg Neutrophils # Man Lymphocytes # (Manual) PT INR APTT Fibrinogen Heparin Anti-Xa Level Sodium Potassium Chloride Carbon Dioxide BUN Creatinine Glucose POC Glucose 216 H 180 H Calcium Phosphorus Magnesium Total Protein 12/16/21 12/16/21 12/16/21 04:19 05:27 11:42 RBC Hgb Hct MCH RDW Lymph % (Auto) Stark % (Auto) Lymph # (Auto) Stark # (Auto) Seg Neutrophils % Seg Neuts % (Manual) Lymphocytes % (Manual) Seg Neutrophils # Seg Neutrophils # Man Lymphocytes # (Manual) PT INR APTT Fibrinogen Heparin Anti-Xa Level Sodium 136 L Potassium 6.4 H* Chloride 92.6 L Carbon Dioxide BUN 63 H Creatinine 13.0 H Glucose 132 H POC Glucose 143 H 136 H Calcium Phosphorus 8.90 H Magnesium 2.40 H Total Protein 12/16/21 12/16/21 12/16/21 17:59 21:10 21:30 RBC Hgb Hct MCH RDW Lymph % (Auto) Stark % (Auto) Lymph # (Auto) Stark # (Auto) Seg Neutrophils % Seg Neuts % (Manual) Lymphocytes % (Manual) Seg Neutrophils # Seg Neutrophils # Man Lymphocytes # (Manual) PT INR APTT Fibrinogen Heparin Anti-Xa Level Sodium Potassium Chloride 97.3 L Carbon Dioxide BUN 33 H Creatinine 8.8 H Glucose 222 H POC Glucose 187 H 249 H Calcium 8.3 L Phosphorus Magnesium Total Protein 12/16/21 12/17/21 12/17/21 23:13 04:16 05:20 RBC Hgb Hct MCH RDW Lymph % (Auto) Stark % (Auto) Lymph # (Auto) Stark # (Auto) Seg Neutrophils % Seg Neuts % (Manual) Lymphocytes % (Manual) Seg Neutrophils # Seg Neutrophils # Man Lymphocytes # (Manual) PT INR APTT Fibrinogen Heparin Anti-Xa Level Sodium Potassium Chloride 97.8 L Carbon Dioxide BUN 38 H Creatinine 9.8 H Glucose POC Glucose 202 H 109 H Calcium Phosphorus Magnesium Total Protein
--- NOTE | 2021-12-17 15:43 | Progress Note ---
Assessment and Plan Patient is doing very well. Transferred to floor today. From a vascular standpoint, likely okay to discharge home tomorrow Subjective Date of service: 12/17/21 Principal diagnosis: Left leg arterial thrombus Interval history: Patient doing very well. Her left leg is warm and well perfused. She does have some tenderness in her calf superficially however, legs are soft. No other complaints. Objective - Constitutional Vitals: Vital Signs - 12hr 12/17/21 12/17/21 12/17/21 03:46 03:50 04:00 Temperature Pulse Rate 85 85 84 Pulse Rate [ Bilateral Dorsalis Pedis/ Posterior] Pulse Rate [ From Monitor] Pulse Rate [ Left Popliteal] Pulse Rate [ Right Popliteal ] Respiratory 11 L 16 12 Rate Blood Pressure 105/72 105/71 O2 Sat by Pulse 94 97 92 Oximetry 12/17/21 12/17/21 12/17/21 04:16 04:30 04:46 Temperature Pulse Rate 86 84 85 Pulse Rate [ Bilateral Dorsalis Pedis/ Posterior] Pulse Rate [ From Monitor] Pulse Rate [ Left Popliteal] Pulse Rate [ Right Popliteal ] Respiratory 12 11 L 12 Rate Blood Pressure 105/71 105/71 105/71 O2 Sat by Pulse 93 96 95 Oximetry 12/17/21 12/17/21 12/17/21 05:00 05:10 05:16 Temperature Pulse Rate 81 81 85 Pulse Rate [ Bilateral Dorsalis Pedis/ Posterior] Pulse Rate [ From Monitor] Pulse Rate [ Left Popliteal] Pulse Rate [ Right Popliteal ] Respiratory 14 17 Rate Blood Pressure 98/58 98/58 O2 Sat by Pulse 97 97 95 Oximetry 12/17/21 12/17/21 12/17/21 05:30 05:46 06:00 Temperature Pulse Rate 82 85 84 Pulse Rate [ Bilateral Dorsalis Pedis/ Posterior] Pulse Rate [ From Monitor] Pulse Rate [ Left Popliteal] Pulse Rate [ Right Popliteal ] Respiratory 13 11 L 12 Rate Blood Pressure 98/58 98/58 93/62 O2 Sat by Pulse 96 96 96 Oximetry 12/17/21 12/17/21 12/17/21 06:16 06:30 06:46 Temperature Pulse Rate 83 85 83 Pulse Rate [ Bilateral Dorsalis Pedis/ Posterior] Pulse Rate [ From Monitor] Pulse Rate [ Left Popliteal] Pulse Rate [ Right Popliteal ] Respiratory 12 13 12 Rate Blood Pressure 93/62 93/62 93/62 O2 Sat by Pulse 97 95 96 Oximetry 12/17/21 12/17/21 12/17/21 07:00 07:16 07:30 Temperature Pulse Rate 84 84 85 Pulse Rate [ Bilateral Dorsalis Pedis/ Posterior] Pulse Rate [ From Monitor] Pulse Rate [ Left Popliteal] Pulse Rate [ Right Popliteal ] Respiratory 12 11 L 12 Rate Blood Pressure 98/51 98/51 98/51 O2 Sat by Pulse 97 98 96 Oximetry 12/17/21 12/17/21 12/17/21 07:46 08:00 08:16 Temperature 98.4 F Pulse Rate 91 H 96 H 97 H Pulse Rate [ 96 H Bilateral Dorsalis Pedis/ Posterior] Pulse Rate [ 96 H From Monitor] Pulse Rate [ 92 H Left Popliteal] Pulse Rate [ 92 H Right Popliteal ] Respiratory 11 L 15 13 Rate Blood Pressure 98/51 97/61 97/61 O2 Sat by Pulse 97 96 97 Oximetry 12/17/21 12/17/21 12/17/21 08:30 08:46 09:00 Temperature Pulse Rate 109 H 100 H 97 H Pulse Rate [ Bilateral Dorsalis Pedis/ Posterior] Pulse Rate [ From Monitor] Pulse Rate [ Left Popliteal] Pulse Rate [ Right Popliteal ] Respiratory 24 12 13 Rate Blood Pressure 97/61 97/61 97/61 O2 Sat by Pulse Oximetry 12/17/21 12/17/21 12/17/21 09:16 09:30 09:46 Temperature Pulse Rate 93 H 103 H 100 H Pulse Rate [ Bilateral Dorsalis Pedis/ Posterior] Pulse Rate [ From Monitor] Pulse Rate [ Left Popliteal] Pulse Rate [ Right Popliteal ] Respiratory 15 Rate Blood Pressure 97/61 97/61 114/69 O2 Sat by Pulse Oximetry 12/17/21 12/17/21 12/17/21 10:00 10:16 10:30 Temperature Pulse Rate 97 H 98 H 98 H Pulse Rate [ Bilateral Dorsalis Pedis/ Posterior] Pulse Rate [ From Monitor] Pulse Rate [ Left Popliteal] Pulse Rate [ Right Popliteal ] Respiratory 15 Rate Blood Pressure 125/82 125/82 125/82 O2 Sat by Pulse 28 L 95 Oximetry 12/17/21 12/17/21 12/17/21 10:46 11:00 11:16 Temperature Pulse Rate 96 H 94 H 95 H Pulse Rate [ Bilateral Dorsalis Pedis/ Posterior] Pulse Rate [ From Monitor] Pulse Rate [ Left Popliteal] Pulse Rate [ Right Popliteal ] Respiratory 13 11 L 12 Rate Blood Pressure 125/82 123/78 123/78 O2 Sat by Pulse 92 94 93 Oximetry 12/17/21 12/17/21 12/17/21 11:30 11:46 12:00 Temperature 98 F Pulse Rate 94 H 93 H 96 H Pulse Rate [ 96 H Bilateral Dorsalis Pedis/ Posterior] Pulse Rate [ 96 H From Monitor] Pulse Rate [ Left Popliteal] Pulse Rate [ Right Popliteal ] Respiratory 12 12 12 Rate Blood Pressure 123/78 123/78 112/69 O2 Sat by Pulse 92 93 92 Oximetry 12/17/21 12/17/21 12:16 12:30 Temperature Pulse Rate 97 H 106 H Pulse Rate [ Bilateral Dorsalis Pedis/ Posterior] Pulse Rate [ From Monitor] Pulse Rate [ Left Popliteal] Pulse Rate [ Right Popliteal ] Respiratory 14 16 Rate Blood Pressure 112/69 112/69 O2 Sat by Pulse 91 93 Oximetry General appearance: Present: no acute distress - EENT Eyes: EOM intact ENT: hearing intact - Neck Neck: supple, normal ROM - Respiratory Respiratory effort: normal Extremities: abnormal - Gastrointestinal General gastrointestinal: Present: deferred Rectal Exam: deferred - Genitourinary Female genitourinary: deferred - Psychiatric Psychiatric: cooperative - Labs CBC & Chem 7: 12/16/21 04:19 12/17/21 04:16 Labs: Abnormal lab results 12/16/21 12/16/21 12/16/21 Range/Units 17:59 21:10 21:30 Chloride 97.3 L (98-107) mmol/L BUN 33 H (7-17) mg/dL Creatinine 8.8 H (0.6-1.2) mg/dL Glucose 222 H (65-100) mg/dL POC Glucose 187 H 249 H (70-105) mg/dL Calcium 8.3 L (8.4-10.2) mg/dL 12/16/21 12/17/21 12/17/21 Range/Units 23:13 04:16 05:20 Chloride 97.8 L (98-107) mmol/L BUN 38 H (7-17) mg/dL Creatinine 9.8 H (0.6-1.2) mg/dL Glucose (65-100) mg/dL POC Glucose 202 H 109 H (70-105) mg/dL Calcium (8.4-10.2) mg/dL 12/17/21 Range/Units 11:33 Chloride (98-107) mmol/L BUN (7-17) mg/dL Creatinine (0.6-1.2) mg/dL Glucose (65-100) mg/dL POC Glucose 192 H (70-105) mg/dL Calcium (8.4-10.2) mg/dL Medications & Allergies - Medications Allergies/Adverse Reactions: Allergies shellfish derived Allergy (Verified 12/15/21 08:30) Itching Home Medications: Home Medications Medication Instructions Recorded Confirmed Last Taken Type Apixaban [Eliquis] 2.5 mg PO QDAY 12/14/21 12/14/21 Unknown History Ferric Citrate (Nf) [Auryxia] 210 mg PO QDAY 12/14/21 12/14/21 Unknown History Gabapentin [Neurontin] 300 mg PO Q8HR 12/14/21 12/14/21 Unknown History Midodrine [Proamatine] 10 mg PO TID@0800,1200,1600 12/14/21 12/14/21 Unknown History Oxycodone HCl/Acetaminophen 1 each PO Q8HR 12/14/21 12/14/21 Unknown History [Oxycodone-Acetaminophen 5-300] Pantoprazole [Protonix] 40 mg PO QDAY 12/14/21 12/14/21 Unknown History Sevelamer Carbonate [Renvela] 800 mg PO TIDWM 12/14/21 12/14/21 Unknown History Active Medications: Generic Name Dose Route Start Last Admin Trade Name Freq PRN Reason Stop Dose Admin Acetaminophen 650 mg 12/14/21 13:07 Acetaminophen 325 Mg Tab PO Q4H PRN Fever >100.5/MIJARES Hydrocodone Bitart/Acetaminophen 1 each 12/17/21 11:30 Hydrocodone/Acetaminophen 5-325 Mg Tab PO Q6H PRN Pain, Mild (1-3) Hydrocodone Bitart/Acetaminophen 2 each 12/17/21 11:30 Hydrocodone/Acetaminophen 5-325 Mg Tab PO Q6H PRN Pain, Moderate (4-6) Albuterol 2.5 mg 12/14/21 13:07 Albuterol 2.5 Mg/3 Ml Nebu IH Q4HRT PRN Shortness Of Breath Apixaban 5 mg 12/15/21 17:00 12/17/21 09:19 Apixaban 5 Mg Tab PO 5 mg Q12HR CHARLA Administration Protocol Clopidogrel Bisulfate 75 mg 12/16/21 10:00 12/17/21 09:19 Clopidogrel 75 Mg Tab PO 75 mg QDAY CHARLA Administration Dextrose 50 ml 12/14/21 13:07 Dextrose 50% In Water (25gm) 50 Ml Syringe IV Q30MIN PRN Hypoglycemia Protocol Gabapentin 100 mg 12/15/21 17:00 12/17/21 09:20 Gabapentin 100 Mg Cap PO 100 mg DAILY CHARLA Administration Heparin Sodium (Porcine) 1,000 unit 12/16/21 10:11 12/16/21 11:14 Heparin 10,000 Units/10 Ml Vial IV 1,000 unit CHELSEA PRN Administration hemodialysis Heparin Sodium (Porcine) 2,000 unit 12/16/21 10:11 12/16/21 10:41 Heparin 10,000 Units/10 Ml Vial IV 2,000 unit CHELSEA PRN Administration hemodialysis Hydromorphone HCl 0.5 mg 12/17/21 11:30 Hydromorphone 1 Mg/1 Ml Inj IV Q4H PRN Pain , Severe (7-10) Sodium Chloride 100 mls @ 999 mls/hr 12/16/21 08:44 Nacl 0.9% IV CHELSEA PRN Hypotension Insulin Glargine 15 units 12/15/21 22:00 12/16/21 21:16 Insulin Glargine 100 Units/Ml SUB-Q 15 units QHS CHARLA Administration Insulin Human Lispro 0 unit 12/14/21 15:00 12/17/21 13:00 Insulin Lispro 100 Unit/Ml SUB-Q Not Given Q6HR [facility] Protocol Midodrine 10 mg 12/14/21 17:00 12/17/21 13:00 Midodrine 10 Mg Tab PO Not Given TID@0800,1200,1600 [facility] Miscellaneous Medication 210 mg 12/15/21 10:00 Ferric Citrate (Nf) PO QDAY [facility] Ondansetron HCl 4 mg 12/14/21 13:07 12/17/21 09:20 Ondansetron 4 Mg/2 Ml Inj IV 4 mg Q8H PRN Administration Nausea And Vomiting Pantoprazole Sodium 40 mg 12/15/21 10:00 12/17/21 09:20 Pantoprazole 40 Mg Tab PO 40 mg QDAY CHARLA Administration Sevelamer Carbonate 800 mg 12/14/21 17:00 12/17/21 13:00 Sevelamer Carbonate 800 Mg Tab PO Not Given TIDWM CHARLA Sodium Chloride 10 ml 12/14/21 22:00 12/17/21 09:22 Sodium Chloride 0.9% 10 Ml Flush Syringe IV 10 ml BID CHARLA Administration Sodium Chloride 10 ml 12/14/21 14:16 Sodium Chloride 0.9% 10 Ml Flush Syringe IV PRN PRN LINE FLUSH
[2021-12-17] MEDS: INSULIN GLARGINE 100 UNITS/ML SUB-Q SCH (22:56)
[2021-12-18] MEDS: INSULIN LISPRO 100 UNIT/ML SUB-Q SCH ×4 (00:46→17:42)
[2021-12-18 06:30] LABS: Hematocrit 45.1 % (30.3-42.9)
[2021-12-18 06:36] LABS: Calcium 8.2 mg/dL (8.4-10.2)
[2021-12-18] MEDS: MIDODRINE 10 MG TAB PO SCH ×3 (09:16→17:42)
[2021-12-18] MEDS: CLOPIDOGREL 75 MG TAB PO SCH (09:17)
[2021-12-18] MEDS: SEVELAMER CARBONATE 800 MG TAB PO SCH ×3 (09:17→17:42)
[2021-12-18] MEDS: GABAPENTIN 100 MG CAP PO SCH (09:17)
[2021-12-18] MEDS: APIXABAN 5 MG TAB PO SCH (09:17)
[2021-12-18] MEDS: PANTOPRAZOLE 40 MG TAB PO SCH (09:17)
--- NOTE | 2021-12-18 10:41 | Progress Note ---
Assessment and Plan Impression: * End stage renal disease * Ischemic limb, left leg - s/p revascularization * Hyperkalemia * Anemia secondary to ESRD * Secondary hyperparathyroidism Plan: * Hemodialsyis today * UF as tolerated * Resume outpatient MWF schedule next week * Vascular surgery recomomendations noted * Epogen TIW prn * Change current diet to Renal/HD diet * Note plans for discharge today Subjective Date of service: 12/18/21 Principal diagnosis: Left leg arterial thrombus Interval history: Patient has no complaints. She is seen on dialysis Objective - Vital Signs Vital signs: Vital Signs - 12hr 12/18/21 12/18/21 12/18/21 00:17 03:58 05:00 Temperature 98.3 F 98.6 F Pulse Rate 92 H 93 H 96 H Respiratory 18 18 Rate Blood Pressure 130/76 127/55 O2 Sat by Pulse 95 96 98 Oximetry 12/18/21 12/18/21 08:40 10:00 Temperature 98.6 F Pulse Rate 99 H Respiratory 16 Rate Blood Pressure 113/56 O2 Sat by Pulse 96 100 Oximetry - General Appearance General appearance: well-developed, appears stated age EENT: ATNC Respiratory: Present: Clear to Ascultation Cardiology: regular, S1S2 Gastrointestinal: normal, no tenderness, no distended Integumentary: no rash, warm and dry Neurologic: alert and oriented x3 - Lab 12/18/21 05:35 12/18/21 05:35 Most recent lab results Calcium 8.2 mg/dL (8.4-10.2) L 12/18/21 05:35 Phosphorus 8.10 mg/dL (2.5-4.5) H 12/18/21 05:35 Magnesium 2.60 mg/dL (1.7-2.3) H 12/18/21 05:35 Medications & Allergies - Medications Allergies/Adverse Reactions: Allergies shellfish derived Allergy (Verified 12/15/21 08:30) Itching Home Medications: Home Medications Medication Instructions Recorded Confirmed Last Taken Type Ferric Citrate (Nf) [Auryxia] 210 mg PO QDAY 12/14/21 12/14/21 Unknown History Oxycodone HCl/Acetaminophen 1 each PO Q8HR 12/14/21 12/14/21 Unknown History [Oxycodone-Acetaminophen 5-300] Apixaban [Eliquis] 5 mg PO Q12HR 30 Days #60 tablet 12/18/21 Unknown Rx Clopidogrel [Plavix] 75 mg PO QDAY 30 Days #30 tablet 12/18/21 Unknown Rx Gabapentin 300 mg PO Q8HR 30 Days #90 cap 12/18/21 Unknown Rx Insulin Glargine [Lantus VIAL] 15 units SUB-Q QHS 30 Days #450 12/18/21 Unknown Rx units Midodrine [Proamatine] 10 mg PO TID@0800,1200,1600 30 12/18/21 Unknown Rx Days #90 tab Pantoprazole [Protonix TAB] 40 mg PO QDAY 30 Days #30 tab 12/18/21 Unknown Rx Sevelamer Carbonate [Renvela] 800 mg PO TIDWM 30 Days #90 tab 12/18/21 Unknown Rx Syringe and Needle,Insulin,1Ml 1 each MC DAILY 30 Days #100 each 12/18/21 Unknown Rx [Insulin Syringe/Needle 1 ML] Active Medications: Generic Name Dose Route Start Last Admin Trade Name Freq PRN Reason Stop Dose Admin Acetaminophen 650 mg 12/14/21 13:07 Acetaminophen 325 Mg Tab PO Q4H PRN Fever >100.5/MIJARES Hydrocodone Bitart/Acetaminophen 1 each 12/17/21 11:30 Hydrocodone/Acetaminophen 5-325 Mg Tab PO Q6H PRN Pain, Mild (1-3) Hydrocodone Bitart/Acetaminophen 2 each 12/17/21 11:30 12/18/21 00:21 Hydrocodone/Acetaminophen 5-325 Mg Tab PO 2 each Q6H PRN Administration Pain, Moderate (4-6) Albuterol 2.5 mg 12/14/21 13:07 Albuterol 2.5 Mg/3 Ml Nebu IH Q4HRT PRN Shortness Of Breath Apixaban 5 mg 12/15/21 17:00 12/18/21 09:17 Apixaban 5 Mg Tab PO 5 mg Q12HR CHARLA Administration Protocol Clopidogrel Bisulfate 75 mg 12/16/21 10:00 12/18/21 09:17 Clopidogrel 75 Mg Tab PO 75 mg QDAY CHARLA Administration Dextrose 50 ml 12/14/21 13:07 Dextrose 50% In Water (25gm) 50 Ml Syringe IV Q30MIN PRN Hypoglycemia Protocol Gabapentin 100 mg 12/15/21 17:00 12/18/21 09:17 Gabapentin 100 Mg Cap PO 100 mg DAILY CHARLA Administration Heparin Sodium (Porcine) 1,000 unit 12/16/21 10:11 12/16/21 11:14 Heparin 10,000 Units/10 Ml Vial IV 1,000 unit CHELSEA PRN Administration hemodialysis Heparin Sodium (Porcine) 2,000 unit 12/16/21 10:11 12/16/21 10:41 Heparin 10,000 Units/10 Ml Vial IV 2,000 unit CHELSEA PRN Administration hemodialysis Hydromorphone HCl 0.5 mg 12/17/21 11:30 12/17/21 17:24 Hydromorphone 1 Mg/1 Ml Inj IV 0.5 mg Q4H PRN Administration Pain , Severe (7-10) Sodium Chloride 100 mls @ 999 mls/hr 12/16/21 08:44 Nacl 0.9% IV CHELSEA PRN Hypotension Insulin Glargine 15 units 12/15/21 22:00 12/17/21 22:56 Insulin Glargine 100 Units/Ml SUB-Q 15 units QHS CHARLA Administration Insulin Human Lispro 0 unit 12/14/21 15:00 12/18/21 06:45 Insulin Lispro 100 Unit/Ml SUB-Q Not Given Q6HR [facility] Protocol Midodrine 10 mg 12/14/21 17:00 12/18/21 09:16 Midodrine 10 Mg Tab PO 10 mg TID@0800,1200,1600 CHARLA Administration Miscellaneous Medication 210 mg 12/15/21 10:00 Ferric Citrate (Nf) PO QDAY [facility] Ondansetron HCl 4 mg 12/14/21 13:07 12/17/21 09:20 Ondansetron 4 Mg/2 Ml Inj IV 4 mg Q8H PRN Administration Nausea And Vomiting Pantoprazole Sodium 40 mg 12/15/21 10:00 12/18/21 09:17 Pantoprazole 40 Mg Tab PO 40 mg QDAY CHARLA Administration Sevelamer Carbonate 800 mg 12/14/21 17:00 12/18/21 09:17 Sevelamer Carbonate 800 Mg Tab PO 800 mg TIDWM CHARLA Administration Sodium Chloride 10 ml 12/14/21 22:00 12/18/21 09:17 Sodium Chloride 0.9% 10 Ml Flush Syringe IV 10 ml BID CHARLA Administration Sodium Chloride 10 ml 12/14/21 14:16 Sodium Chloride 0.9% 10 Ml Flush Syringe IV PRN PRN LINE FLUSH
--- NOTE | 2021-12-18 13:27 | Discharge Summary ---
Providers - Providers Date of Admission: 12/14/21 13:07 Date of discharge: 12/18/21 Attending physician: HIRAM SNIDER MD 12/14/21 14:16 Consult to Physician [CONS] Routine Comment: noted/ filomena Consulting Provider: ELENI REBOLLEDO Physician Instructions: Reason For Exam: Left limb ischemia 12/14/21 14:17 Consult to Physician [CONS] Routine Comment: called answ. serv./ filomena Consulting Provider: ARIS WADE Physician Instructions: Reason For Exam: esrd 12/14/21 15:38 Consult to Physician [CONS] Routine Comment: PT FOR EKOS INSERTION Consulting Provider: MARLEY ASHBY Physician Instructions: dr. perez residential collections/ filomena Reason For Exam: ADMISSION TO CCU 12/16/21 10:38 Occupational Therapy Evaluate and Treat [CONS] Routine Comment: Reason For Exam: Strengthening and Conditioning Physical Therapy Evaluation and Treat [CONS] Routine Comment: Reason For Exam: Strengthening and Conditioning 12/16/21 14:04 Physical Therapy Evaluation and Treat [CONS] Routine Comment: Reason For Exam: Strengthening conditioning Primary care physician: ELENI REBOLLEDO Hospitalization Condition: Stable Disposition: 30 STILL A PATIENT Exam - Constitutional Vitals: Temp Pulse Resp BP Pulse Ox 98.3 F 88 18 150/70 90 12/18/21 11:46 12/18/21 11:46 12/18/21 11:46 12/18/21 11:46 12/18/21 11:46 Plan Care Plan Goals: Please follow-up with your primary care provider. We will arrange for you to go home with home health and physical therapy. You have to take Eliquis and Plavix for the rest of your life to prevent further blood clots and amputations. Follow up with: ELENI REBOLLEDO MD [Primary Care Provider] - 7 Days Prescriptions: Insulin Glargine [Lantus VIAL] 15 units SUB-Q QHS 30 Days #450 units Apixaban [Eliquis] 5 mg PO Q12HR 30 Days #60 tablet Gabapentin 300 mg PO Q8HR 30 Days #90 cap Syringe and Needle,Insulin,1Ml [Insulin Syringe/Needle 1 ML] 1 each MC DAILY 30 Days #100 each Clopidogrel [Plavix] 75 mg PO QDAY 30 Days #30 tablet Midodrine [Proamatine] 10 mg PO TID@0800,1200,1600 30 Days #90 tab Pantoprazole [Protonix TAB] 40 mg PO QDAY 30 Days #30 tab Sevelamer Carbonate [Renvela] 800 mg PO TIDWM 30 Days #90 tab Other Discharge Orders: Glucometer (Amb) Location: None Selected Glucometer supplies[Amb] Location: None Selected
--- NOTE | 2021-12-18 15:01 | Progress Note ---
Assessment and Plan 36-year-old female with diabetic neuropathy, peripheral vascular disease, end- stage renal disease on hemodialysis presents with left lower extremity arterial ischemia. Status post thrombectomy and thrombolysis with resolution of symptoms. Patient is now on more advanced anticoagulation/antiplatelet therapy. She will need to be started on pantoprazole as well for GI prophylaxis. On Plavix, Eliquis, and pantoprazole. Can be discharged. Follow-up in 1 to 2 weeks. Subjective Date of service: 12/18/21 Principal diagnosis: Left leg arterial thrombus Interval history: Doing well. Very mild left calf pain which has improved over the last few days. No compartment syndrome. Sensory function has returned. Still has baseline motor dysfunction from the left proximal TMA. Discussed medication regimen in detail. Proper use discussed Objective - Constitutional Vitals: Vital Signs - 12hr 12/18/21 12/18/21 12/18/21 03:58 05:00 08:40 Temperature 98.6 F 98.6 F Pulse Rate 93 H 96 H 99 H Pulse Rate [ Right Radial] Respiratory 18 16 Rate Blood Pressure 127/55 113/56 O2 Sat by Pulse 96 98 96 Oximetry 12/18/21 12/18/21 10:00 11:46 Temperature 98.3 F Pulse Rate 88 88 Pulse Rate [ 88 Right Radial] Respiratory 18 18 Rate Blood Pressure 150/70 O2 Sat by Pulse 97 90 Oximetry General appearance: Present: no acute distress - EENT Eyes: EOM intact ENT: hearing intact - Respiratory Respiratory effort: normal Extremities: normal temperature, normal color, abnormal (Reperfusion warmth of the left calf. No compartment syndrome. Minimal discomfort of the left calf. Sensory dysfunction of the left TMA has resolved. Motor function of the left TMA is essentially baseline.) - Gastrointestinal General gastrointestinal: Present: soft, non-tender - Psychiatric Psychiatric: appropriate mood/affect, cooperative - Labs CBC & Chem 7: 12/18/21 05:35 12/18/21 05:35 Labs: Abnormal lab results 12/17/21 12/17/21 12/18/21 Range/Units 16:43 21:23 05:35 Hct 45.1 H (30.3-42.9) % Potassium (3.6-5.0) mmol/L Chloride (98-107) mmol/L BUN (7-17) mg/dL Creatinine (0.6-1.2) mg/dL Glucose (65-100) mg/dL POC Glucose 197 H 186 H (70-105) mg/dL Calcium (8.4-10.2) mg/dL Phosphorus (2.5-4.5) mg/dL Magnesium (1.7-2.3) mg/dL 12/18/21 Range/Units 05:35 Hct (30.3-42.9) % Potassium 5.3 H (3.6-5.0) mmol/L Chloride 96.5 L (98-107) mmol/L BUN 58 H (7-17) mg/dL Creatinine 12.7 H (0.6-1.2) mg/dL Glucose 208 H (65-100) mg/dL POC Glucose (70-105) mg/dL Calcium 8.2 L (8.4-10.2) mg/dL Phosphorus 8.10 H (2.5-4.5) mg/dL Magnesium 2.60 H (1.7-2.3) mg/dL Medications & Allergies - Medications Allergies/Adverse Reactions: Allergies shellfish derived Allergy (Verified 12/15/21 08:30) Itching Home Medications: Home Medications Medication Instructions Recorded Confirmed Last Taken Type Ferric Citrate (Nf) [Auryxia] 210 mg PO QDAY 12/14/21 12/14/21 Unknown History Oxycodone HCl/Acetaminophen 1 each PO Q8HR 12/14/21 12/14/21 Unknown History [Oxycodone-Acetaminophen 5-300] Apixaban [Eliquis] 5 mg PO Q12HR 30 Days #60 tablet 12/18/21 Unknown Rx Clopidogrel [Plavix] 75 mg PO QDAY 30 Days #30 tablet 12/18/21 Unknown Rx Gabapentin 300 mg PO Q8HR 30 Days #90 cap 12/18/21 Unknown Rx Insulin Glargine [Lantus VIAL] 15 units SUB-Q QHS 30 Days #450 12/18/21 Unknown Rx units Midodrine [Proamatine] 10 mg PO TID@0800,1200,1600 30 12/18/21 Unknown Rx Days #90 tab Pantoprazole [Protonix TAB] 40 mg PO QDAY 30 Days #30 tab 12/18/21 Unknown Rx Sevelamer Carbonate [Renvela] 800 mg PO TIDWM 30 Days #90 tab 12/18/21 Unknown Rx Syringe and Needle,Insulin,1Ml 1 each MC DAILY 30 Days #100 each 12/18/21 Unknown Rx [Insulin Syringe/Needle 1 ML] Active Medications: Generic Name Dose Route Start Last Admin Trade Name Freq PRN Reason Stop Dose Admin Acetaminophen 650 mg 12/14/21 13:07 Acetaminophen 325 Mg Tab PO Q4H PRN Fever >100.5/MIJARES Hydrocodone Bitart/Acetaminophen 1 each 12/17/21 11:30 12/18/21 13:28 Hydrocodone/Acetaminophen 5-325 Mg Tab PO 1 each Q6H PRN Administration Pain, Mild (1-3) Hydrocodone Bitart/Acetaminophen 2 each 12/17/21 11:30 12/18/21 00:21 Hydrocodone/Acetaminophen 5-325 Mg Tab PO 2 each Q6H PRN Administration Pain, Moderate (4-6) Albuterol 2.5 mg 12/14/21 13:07 Albuterol 2.5 Mg/3 Ml Nebu IH Q4HRT PRN Shortness Of Breath Apixaban 5 mg 12/15/21 17:00 12/18/21 09:17 Apixaban 5 Mg Tab PO 5 mg Q12HR CHARLA Administration Protocol Clopidogrel Bisulfate 75 mg 12/16/21 10:00 12/18/21 09:17 Clopidogrel 75 Mg Tab PO 75 mg QDAY CHARLA Administration Dextrose 50 ml 12/14/21 13:07 Dextrose 50% In Water (25gm) 50 Ml Syringe IV Q30MIN PRN Hypoglycemia Protocol Gabapentin 100 mg 12/15/21 17:00 12/18/21 09:17 Gabapentin 100 Mg Cap PO 100 mg DAILY CHARLA Administration Heparin Sodium (Porcine) 1,000 unit 12/16/21 10:11 12/16/21 11:14 Heparin 10,000 Units/10 Ml Vial IV 1,000 unit CHELSEA PRN Administration hemodialysis Heparin Sodium (Porcine) 2,000 unit 12/16/21 10:11 12/16/21 10:41 Heparin 10,000 Units/10 Ml Vial IV 2,000 unit CHELSEA PRN Administration hemodialysis Hydromorphone HCl 0.5 mg 12/17/21 11:30 12/17/21 17:24 Hydromorphone 1 Mg/1 Ml Inj IV 0.5 mg Q4H PRN Administration Pain , Severe (7-10) Sodium Chloride 100 mls @ 999 mls/hr 12/16/21 08:44 Nacl 0.9% IV CHELSEA PRN Hypotension Insulin Glargine 15 units 12/15/21 22:00 12/17/21 22:56 Insulin Glargine 100 Units/Ml SUB-Q 15 units QHS CHARLA Administration Insulin Human Lispro 0 unit 12/14/21 15:00 12/18/21 12:31 Insulin Lispro 100 Unit/Ml SUB-Q 6 unit Q6HR CHARLA Administration Protocol Midodrine 10 mg 12/14/21 17:00 12/18/21 12:30 Midodrine 10 Mg Tab PO Not Given TID@0800,1200,1600 [facility] Miscellaneous Medication 210 mg 12/15/21 10:00 Ferric Citrate (Nf) PO QDAY [facility] Ondansetron HCl 4 mg 12/14/21 13:07 12/17/21 09:20 Ondansetron 4 Mg/2 Ml Inj IV 4 mg Q8H PRN Administration Nausea And Vomiting Pantoprazole Sodium 40 mg 12/15/21 10:00 12/18/21 09:17 Pantoprazole 40 Mg Tab PO 40 mg QDAY CHARLA Administration Sevelamer Carbonate 800 mg 12/14/21 17:00 12/18/21 12:31 Sevelamer Carbonate 800 Mg Tab PO 800 mg TIDWM CHARLA Administration Sodium Chloride 10 ml 12/14/21 22:00 12/18/21 09:17 Sodium Chloride 0.9% 10 Ml Flush Syringe IV 10 ml BID CHARLA Administration Sodium Chloride 10 ml 12/14/21 14:16 Sodium Chloride 0.9% 10 Ml Flush Syringe IV PRN PRN LINE FLUSH
[2021-12-18] MEDS: HEPARIN 10,000 UNITS/10 ML VIAL IV PRN (15:47)
[2021-12-18 17:44] VITALS: BP 104/55
== END 2021-12-18 19:32 | disposition home health service (06) | DRG 270 ==
LOC: ED 10:45 → CC1 13:07 → 4A 12-17 15:44
PROVIDERS: ADMIT Internal Medicine; ATTEND Student in an Organized Health Care Education/Training Program
PROC: B41D1ZZ Fluoroscopy of Aorta and Bilateral Lower Extremity Arteries using Low Osmolar Contrast (ICD-10-PCS; principal; 2021-12-14)
PROC: 04HN33Z Insertion of Infusion Device into Left Popliteal Artery, Percutaneous Approach (ICD-10-PCS; 2021-12-14)
PROC: 3E05317 Introduction of Other Thrombolytic into Peripheral Artery, Percutaneous Approach (ICD-10-PCS; 2021-12-14)
PROC: B41G1ZZ Fluoroscopy of Left Lower Extremity Arteries using Low Osmolar Contrast (ICD-10-PCS; 2021-12-14)
PROC: 04CN3ZZ Extirpation of Matter from Left Popliteal Artery, Percutaneous Approach (ICD-10-PCS; 2021-12-15)
PROC: 047N3ZZ Dilation of Left Popliteal Artery, Percutaneous Approach (ICD-10-PCS; 2021-12-15)
PROC: 5A1D70Z Performance of Urinary Filtration, Intermittent, Less than 6 Hours Per Day (ICD-10-PCS; 2021-12-15)
PROC: 3E05317 Introduction of Other Thrombolytic into Peripheral Artery, Percutaneous Approach (ICD-10-PCS; 2021-12-15)
PROC: 5A1D70Z Performance of Urinary Filtration, Intermittent, Less than 6 Hours Per Day (ICD-10-PCS; 2021-12-16)
PROC: 5A1D70Z Performance of Urinary Filtration, Intermittent, Less than 6 Hours Per Day (ICD-10-PCS; 2021-12-18)
DX: E11.51 Type 2 diabetes mellitus with diabetic peripheral angiopathy without gangrene (principal); N18.6 End stage renal disease; I12.0 Hypertensive chronic kidney disease with stage 5 chronic kidney disease or end stage renal disease; N25.81 Secondary hyperparathyroidism of renal origin; E11.40 Type 2 diabetes mellitus with diabetic neuropathy, unspecified; I70.90 Unspecified atherosclerosis; E66.9 Obesity, unspecified; I70.244 Atherosclerosis of native arteries of left leg with ulceration of heel and midfoot; E87.5 Hyperkalemia; E11.22 Type 2 diabetes mellitus with diabetic chronic kidney disease; Z99.2 Dependence on renal dialysis; E11.42 Type 2 diabetes mellitus with diabetic polyneuropathy; D63.1 Anemia in chronic kidney disease; Z68.36 Body mass index [BMI] 36.0-36.9, adult; Z79.4 Long term (current) use of insulin; Z91.013 Allergy to seafood; Z79.82 Long term (current) use of aspirin; Z83.3 Family history of diabetes mellitus; Z82.49 Family history of ischemic heart disease and other diseases of the circulatory system; Z87.891 Personal history of nicotine dependence
CPT/HCPCS: 36415; 37184; 37211; 37214; 37224; 75625; 75710; 80048; 80053; 80074; 82962; 83735; 84100; 85007; 85014; 85018; 85025; 85027; 85049; 85384; 85520; 85610; 85730; 86850; 86900; 86901; 93005; 93306; 94760; G0378; J1815; J3490; Q0162; Q9967; C1725; C1757; C1760; C1769; C1884; C1887; C1894; C8929; J0610; J1170; J1200; J1644; J1720; J2060; J2250; J2405; J2930; J2997; J3010; J7030; J7040

== ENCOUNTER 2022-05-10 10:41 | Day surgery (SDC) | payer MEDICARE ==
[2022-05-10] MEDS ORDERED: SODIUM CHLORIDE 0.9% 1000 ML 1,000 ML ONE (10:45)
[2022-05-10] MEDS ORDERED: HYDROmorphone 0.5 MG/0.5 ML INJ IV PRN ×2 (11:53)
[2022-05-10] MEDS ORDERED: ONDANSETRON 4 MG/2 ML INJ IV PRN (11:53)
--- NOTE | 2022-05-10 11:57 | Anesthesia Consultation ---
Anesthesia Consult and Med Hx Date of service: 05/10/22 - Pre-Operative Health Status ASA Pre-Surgery Classification: ASA3 Proposed Anesthetic Plan: General - Pulmonary Hx Smoking: Yes (STOPPED 2012) Hx Respiratory Symptoms: No Hx Sleep Apnea: No (ESPERANZA PRE SCREEN NEGATIVE) - Cardiovascular System Hx Hypertension: No (ECHO 12/24 50-55%) Hx Peripheral Vascular Disease: Yes (Toes amputated; was here for vascular interventions) - Central Nervous System Hx Neuromuscular Disorder: Yes (Legally blind; neuropathy legs) Hx Psychiatric Problems: No - Gastrointestinal Hx Gastroesophageal Reflux Disease: Yes - Endocrine Hx Renal Disease: Yes Hx End Stage Renal Disease: Yes (Last HD yesterday) Hx Insulin Dependent Diabetes: Yes Hx Thyroid Disease: No - Hematic Hx Anemia: Yes (NOT RECENT) Hx Sickle Cell Disease: No - Other Systems Hx Alcohol Use: Yes (occasional) Hx Cancer: No Hx Obesity: Yes
[2022-05-10] MEDS ORDERED: SODIUM CHLORIDE 0.9% 1000 ML 1,000 ML IV SCH (12:00)
[2022-05-10] MEDS ORDERED: MIDAZOLAM 2 MG/2 ML INJ IV NR (12:00)
[2022-05-10] MEDS ORDERED: LIDOCAINE MPF (2%) 20 MG/1 ML VIAL 5 ML ONE (12:46)
[2022-05-10] MEDS ORDERED: MIDAZOLAM 2 MG/2 ML INJ ONE (12:46)
[2022-05-10] MEDS ORDERED: propofoL 200 MG/20 ML VIAL IV ONE (12:46)
[2022-05-10] MEDS ORDERED: fentaNYL 100 MCG/2 ML INJ ONE (12:46)
--- NOTE | 2022-05-10 12:59 | Short Stay Summary ---
Short Stay Documentation Date of service: 05/10/22 Narrative H&P: 36y/o G0 with dysfunctional uterine bleeding. The patient has multiple medical problems to include end state renal and profound vascular insufficiency. She has had continued vaginal bleeding despite medical management. - History Principal diagnosis: Dysfunctional vaginal bleeding Past Medical History: diabetes, dialysis, ESRD, other (Vascular insufficiency; blindness) Past Surgical History: Other (Amputation of toes; angioplasty; permacath;) Social history: single - Allergies and Medications Current Medications: Allergies shellfish derived Allergy (Verified 12/15/21 08:30) Itching Home Medications Medication Instructions Recorded Confirmed Last Taken Type Oxycodone HCl/Acetaminophen 1 each PO PRN PRN 12/14/21 05/04/22 Unknown History [Oxycodone-Acetaminophen 5-300] Apixaban [Eliquis] 5 mg PO Q12HR 30 Days #60 tablet 12/18/21 05/10/22 05/10/22 06:30 Rx Clopidogrel [Plavix] 75 mg PO QDAY 30 Days #30 tablet 12/18/21 05/10/22 05/10/22 06:30 Rx Pantoprazole [Protonix TAB] 40 mg PO QDAY 30 Days #30 tab 12/18/21 05/10/22 05/09/22 09:00 Rx Sevelamer Carbonate [Renvela] 800 mg PO TIDWM 30 Days #90 tab 12/18/21 05/10/22 05/09/22 21:00 Rx Gabapentin 300 mg PO PRN PRN 05/04/22 05/04/22 Unknown History Insulin Detemir [Levemir Flextouch] 40 unit SQ QHS 05/04/22 05/10/22 05/09/22 19:00 History Midodrine [Proamatine] 10 mg PO DAILY 05/04/22 05/10/22 05/09/22 09:00 History Active Medications Hydromorphone HCl (Hydromorphone 0.5 Mg/0.5 Ml Inj) 0.25 mg IV Q10MIN PRN PRN Reason: Pain, Moderate (4-6) Hydromorphone HCl (Hydromorphone 0.5 Mg/0.5 Ml Inj) 0.5 mg IV Q10MIN PRN PRN Reason: Pain , Severe (7-10) Sodium Chloride (Nacl 0.9% 1000 Ml) 1,000 mls @ 42 mls/hr IV DIRECT CHARLA Midazolam HCl (Midazolam 2 Mg/2 Ml Inj) 2 mg IV PREOP NR Stop: 05/10/22 23:59 Ondansetron HCl (Ondansetron 4 Mg/2 Ml Inj) 4 mg IV ONCE PRN PRN Reason: Nausea And Vomiting - Physical exam General appearance: no acute distress Integumentary: no rash HEENT: Atraumatic Lungs: Clear to auscultation Breasts: deferred Heart: Regular rate Gastrointestinal: normal - Brief post op/procedure progress note Date of procedure: 05/10/22 Pre-op diagnosis: Dysfunctional uterine bleeding Post-op diagnosis: same Procedure: Hysteroscopy Dilatation and curettage Anesthesia: TIAGO Surgeon: JESSE YOUNG Estimated blood loss: minimal Pathology: list (Endometrial curettings) Specimen disposition: to lab Condition: stable - Hospital course Hospital course: The patient was admitted the day of surgery and underwent a hysteroscopy dilatation and curettage. Please see operative note for details of surgery. Postoperative course was uneventful. - Disposition Condition at discharge: Fair Disposition: 01 HOME / SELF CARE / HOMELESS Short Stay Discharge Plan Activity: no restrictions Diet: regular Additional Instructions: Schedule follow-up with Dr. Young in 2 to 4 weeks
[2022-05-10 13:04] LABS: Mean Corpuscular HGB Conc 30 % (30-34); Mean Corpuscular Volume 97 fl (79-97); Platelet Count 290 K/mm3 (140-440); Red Blood Count 4.87 M/mm3 (3.65-5.03)
[2022-05-10 13:05] LABS: Hematocrit 47.3 % (30.3-42.9); Hemoglobin 14.4 gm/dl (10.1-14.3); Red Cell Distribution Width 20.5 % (13.2-15.2)
[2022-05-10 13:23] LABS: Calcium 10.3 mg/dL (8.4-10.2)
[2022-05-10] MEDS ORDERED: PHENYLEPHRINE/NS 1,000 MCG/10 ML SYRINGE (OR USE) IV ONE (13:59)
[2022-05-10] MEDS ORDERED: ONDANSETRON 4 MG/2 ML INJ ONE (13:59)
[2022-05-10] MEDS ORDERED: SODIUM CHLORIDE 0.9% IRRIG SOLN 2000 ML IR ONE (14:00)
--- NOTE | 2022-05-10 14:10 | Operative Report ---
Operative Report Operative Report: Date of procedure: May 10, 2022 Pre-operative diagnosis: Dysfunctional uterine bleeding Post-operative diagnosis: Same as above Procedure name(s): Hysteroscopy; dilatation and curettage Surgeon: Mel Polanco M.D. Log Sawyer: None Anesthesia: LMA Findings small uterine cavity; proliferative endometrium Indication: 36-year-old G0 with a history of dysfunctional uterine bleeding. The patient has attempted medical management without significant improvement in her symptoms. Procedure The patient was taken to the operating room and given general tracheal anesthesia without complication. The patient was prepped and draped in a normal sterile fashion. A bivalve speculum was placed in the patient's vagina single- tooth tenaculums placed on the anterior lip of the cervix. The cervical os was dilated with graduated dilators. A uterine sound was inserted. The hysteroscope was then placed. Insufflation of the uterine cavity was performed with normal saline. Gen. survey of the uterine cavity revealed proliferative endometrium with a small uterine cavity. No intracavitary lesions could be identified. An extensive hysteroscopic exam was performed. In conclusion the uterine cavity appeared to be too small to activate the NovaSure device. The endometrial ablation was not attempted.. The hysteroscope was then removed. A sharp curettage of the endometrial surface was performed. A [id number] stitch had to be placed in the cervical mucosa secondary to bleeding from the te naculum site. The remainder of the vaginal instruments were then removed atraumatically. The patient was then successfully extubated taken to the recovery room. All sponge laps and needle counts were correct 2.
[2022-05-10 15:01] VITALS: BP 107/63
--- NOTE | 2022-05-10 16:13 | Post Anesthesia Evaluation ---
- Post Anesthesia Evaluation Patient Participated: Yes Airway Patent: Yes Stable Respiratory Function: Yes Nausea/Vomiting: No Temp > 96.8F: Yes Pain Manageable: Yes Adequeate Hydration: Yes Anesthesia Complications: No Block Receding Appropriately: Not Applicable Patient on Ventilator: No
== END 2022-05-10 16:15 | disposition home or self-care (01) ==
LOC: OR 10:41
PROVIDERS: ATTEND Obstetrics & Gynecology
DX: N93.8 Other specified abnormal uterine and vaginal bleeding (principal); I12.0 Hypertensive chronic kidney disease with stage 5 chronic kidney disease or end stage renal disease; E11.22 Type 2 diabetes mellitus with diabetic chronic kidney disease; N18.6 End stage renal disease; I70.244 Atherosclerosis of native arteries of left leg with ulceration of heel and midfoot; E11.65 Type 2 diabetes mellitus with hyperglycemia; E11.42 Type 2 diabetes mellitus with diabetic polyneuropathy; K21.9 Gastro-esophageal reflux disease without esophagitis; E66.9 Obesity, unspecified; D64.9 Anemia, unspecified; Z80.8 Family history of malignant neoplasm of other organs or systems; Z80.3 Family history of malignant neoplasm of breast; Z80.0 Family history of malignant neoplasm of digestive organs; Z83.3 Family history of diabetes mellitus; Z79.899 Other long term (current) drug therapy; Z91.013 Allergy to seafood; Z98.890 Other specified postprocedural states; Z79.4 Long term (current) use of insulin; Z87.891 Personal history of nicotine dependence; Z86.718 Personal history of other venous thrombosis and embolism; Z99.2 Dependence on renal dialysis; Z72.89 Other problems related to lifestyle; Z82.49 Family history of ischemic heart disease and other diseases of the circulatory system
CPT/HCPCS: 58558; 80048; 82962; 84703; 85027; 88305; J1170; J2250; J2370; J2405; J2704; J3010; J7030